=== PATIENT | female | born 1950 | race Two or more races ===

== ENCOUNTER 2024-12-21 07:04 | Inpatient (IN) | payer MEDICAID, SELFPAY ==
[2024-12-21] VITALS (17 sets, daily range): BP systolic 55–157; BP diastolic 39–97; PULSE 31–100; RESP 12–21; TEMP 36–37.3; O2SAT 82–100; BMI 27.1
--- NOTE | 2024-12-21 07:26 | EKG_ITS ---
[facility] Test Date: 2024-12-21 Pat Name: BELÉN MAGANA Department: Room: - Gender: Female Pathology Specialist: : 1950 Requested By: Ileana Boland Order Number: [id number] Reading MD: Ileana Boland Measurements Intervals [place] Rate: 72 P: 34 WI: 171 QRS: -29 QRSD: 80 T: 80 QT: 387 QTc: 424 Interpretive Statements SINUS RHYTHM LOW QRS VOLTAGE IN PRECORDIAL LEADS [QRS DEFLECTION < 1.0 mV IN CHEST LEADS] POSSIBLE ANTERIOR MYOCARDIAL INFARCTION , OF INDETERMINATE AGE [30 ms Q WAVE IN V3/V4, OR R < 0.2 mV IN V4] Compared to ECG 12/25/2023 08:21:03 Low QRS voltage now present Left-axis deviation no longer present Myocardial infarct finding still present /store/S0/[id number]/ecg/[id number].pdf
[2024-12-21 07:49] LABS: Lactate (Lactic Acid) 1.4 mMol/L (0.4-2.0)
[2024-12-21 07:53] LABS: Basophils # (Auto) 0.0 Thou/mm3 (0.0-0.2); Basophils % (Auto) 0 % (0-2.5); Eosinophils # (Auto) 0.1 Thou/mm3 (0.0-0.5); Eosinophils % (Auto) 1 % (0-10); Hematocrit 28.1 % (36.0-46.0); Hemoglobin 8.9 g/dL (12.0-16.0); Immature Granulocytes Auto 0.03 Thou/mm3 (0.00-0.00); Lymphocytes # (Auto) 1.9 Thou/mm3 (1.0-4.8); Lymphocytes % (Auto) 26 % (10-50); Mean Corpuscular HGB Conc 31.7 g/dl (31.0-37.0); Mean Corpuscular Hemoglobin 30.1 pg (25.0-35.0); Mean Corpuscular Volume 95 fL (80-100); Monocytes # (Auto) 0.5 Thou/mm3 (0.0-0.8); Monocytes % (Auto) 7 % (0-12); Neutrophils # (Auto) 5.0 Thou/mm3 (1.8-7.7); Neutrophils % (Auto) 66 % (37-80); Nucleated Red Blood Cell # 0.00 Thou/mm3 (0.00-0.00); Nucleated Red Blood Cell % 0 /100 WBC (0); Platelet Count 185 Thou/mm3 (140-440); RDW Standard Deviation 54.4 fL (36.4-46.3); Red Blood Count 2.96 Miln/mm3 (4.00-5.20); White Blood Count 7.5 Thou/mm3 (3.6-11.0)
[2024-12-21] MEDS: ONDANSETRON INJ 2 MG/ML INJ 2 ML 4 MG IVP (07:54)
[2024-12-21] MEDS: SODIUM CHLORIDE 0.9% 1000 ML 1,000 ML 999 ML IV (07:54)
--- NOTE | 2024-12-21 08:02 | PD.EDNV ---
Nausea/Vomit./Diarrhea-RME/HPI General Chief complaint: Nausea/Vomiting/Diarrhea Stated complaint: VOMITING Time Seen by Provider: 12/21/24 07:26 Arrival date/time: 12/21/24 07:04 RME / HPI RME / HPI Narrative: DR. DUDLEY MAIN ED EVALUATION: 74-year-old female with past medical history of hypertension, hyperlipidemia, diabetes mellitus type 2, CKD stage IIIb, anemia, history of gout, history of acute non-STEMI type I status post stent placement performed on June 26, [address] Franklin involving LAD was brought in by EMS from home for evaluation of vomiting blood. Patient had one episode of coffee-ground emesis at home and then experienced another episode of red blood here at the ED. She denies abdominal pain, recent injury, trauma, or other symptoms. No prior similar episodes reported. The patient appears weak and pale but remains responsive. No chest pain, shortness of breath, or dizziness reported. Related Data Home Medications ?Medication ?Instructions ?Recorded ?Confirmed allopurinol 300 mg tablet 300 mg PO QDAY 05/24/21 12/23/23 sitagliptin phosphate 100 mg 100 mg PO QDAY 05/24/21 12/23/23 tablet (Januvia) vitamin B complex-vitamin C-folic 1 tab PO QDAY 05/24/21 12/23/23 acid 0.8 mg tablet (Cari-Marycruz) aspirin 81 mg tablet,delayed 81 mg PO QDAY 06/21/23 12/23/23 release Held on 12/29/23. Instructions: Resume on 01/11/24. Please follow up with Radiology Physician Assistant, Dr. Freire in order to resume Aspirin. sodium bicarbonate 325 mg tablet 325 mg PO DAILY 06/21/23 12/23/23 irbesartan 150 mg tablet 150 mg PO QDAY 06/23/23 06/23/23 atorvastatin 80 mg tablet 80 mg PO DAILY 12/23/23 12/23/23 clopidogrel 75 mg tablet (Plavix) 75 mg PO DAILY 12/23/23 12/23/23 Held on 12/29/23. Instructions: Resume on 01/11/24. Please follow up with Radiology Physician Assistant, Dr. Freire in order to resume Clopidogrel (Plavix). dapagliflozin propanediol 5 mg 5 mg PO DAILY 12/23/23 12/23/23 tablet (Farxiga) ferrous sulfate 325 mg (65 mg 325 mg PO DAILY 12/23/23 12/23/23 iron) tablet hydrochlorothiazide 25 mg tablet 25 mg PO DAILY 12/23/23 12/23/23 insulin glargine 100 unit/mL (3 10 unit subcut QAM 12/23/23 12/23/23 mL) subcutaneous pen (Lantus Solostar U-100 Insulin) meclizine 12.5 mg tablet 12.5 mg PO BID PRN Dizziness 12/23/23 12/23/23 metoprolol tartrate 25 mg tablet 25 mg PO QDAY 12/23/23 12/23/23 pentoxifylline 400 mg 400 mg PO QDAY 12/23/23 12/23/23 tablet,extended release warfarin 5 mg tablet 5 mg PO DAILY 12/23/23 12/23/23 Previous Rx's ?Medication ?Instructions ?Recorded docusate sodium 100 mg capsule 100 mg PO BID #40 caps 06/22/23 (Colace) hydrocodone 5 mg-acetaminophen 325 1 tab PO Q6H PRN pain (scale score 06/22/23 mg tablet 7-10) #20 tabs warfarin 4 mg tablet 4 mg PO QDAY #30 tabs 12/29/23 Allergies Allergy/AdvReac Type Severity Reaction Status Date / Time No Known Allergies Allergy Verified 12/22/23 21:38 Review of Systems Review of Systems Systems Reviewed: All systems reviewed, normal except as documented Past Medical History Past Medical History CARDIAC: Positive Cardiac Disorders, Hypercholesterolemia and Hypertension GASTROINTESTINAL: Positive Gastrointestinal Disorders and Gall Bladder Disease GENITOURINARY: Positive Genitourinary Disorders and Renal Disease ( KIDNEYS ARE DAMAGED ) REPRODUCTIVE: Positive Previous Pregnancies MUSCULOSKELETAL: Positive Musculoskeletal Disorders and Arthritis ENT: Positive Cataracts and Blind ENDOCRINE: Positive Endocrine Disorders and Diabetes Mellitus Type 2 HEMATOLOGIC: Positive Blood Disorders and Anemia PSYCHO/SOCIAL: Positive Anxiety OTHER HISTORY: Positive Hospitalization and Chicken Pox Social History SMOKING STATUS: Never smoker SUBSTANCE USE: does not use ALCOHOL: Never ED Exam Narrative Physical exam: GENERAL APPEARANCE: Pale, diaphoretic, and appears weak; alert but fatigued VITALS: All vitals were reviewed and the pulse ox is 99% on 1 L/min via a nasal cannula. HEENT: Normocephalic, atraumatic; pupils equal, round, reactive to light; EOMI; mucous membranes pink, moist; oropharynx clear NECK: Supple LUNGS: CTABL; no wheezes, no rales, no rhonchi HEART: Regular rate, regular rhythm; normal S1, S2; no murmurs ABDOMEN: non distended; normal BS; soft, no tenderness, no guarding, no rebound; no masses, no organomegaly, no hernia BACK: no CVA tenderness EXTREMITIES: atraumatic; no edema NEUROLOGIC: awake; alert and oriented x4; cranial nerves II-XII grossly intact; no focal sensory or motor deficits PSYCHIATRIC: appropriate mood and affect SKIN: pale, diaphoretic; no rashes Course Quality Measures none Orders Category Date Time Status CT Screening NOW Care 12/21/24 08:10 Active EKG (ED ONLY) *Do not use* NOW Care 12/21/24 07:26 Completed Insert IV NOW Care 12/21/24 07:37 Active Transfuse,blood/blood products NOW Care 12/21/24 08:08 Active Consult to Gastroenterology Stat Cons 12/21/24 10:[address] abdomen pelvis wo con Stat Exams 12/21/24 09:[address] head/brain wo con Stat Exams 12/21/24 08:10 Completed EKG (ED Only) Stat Exams 12/21/24 07:26 Draft ABG [Arterial Blood Gas] Stat Lab 12/21/24 08:59 Completed BNP [B-Type Natriuretic Peptide] Stat Lab 12/21/24 07:36 Completed CBC Stat Lab 12/21/24 07:36 Completed Comprehensive Metabolic Panel Stat Lab 12/21/24 07:36 Completed Lactate (Lactic Acid) Stat Lab 12/21/24 07:36 Completed Lipase Stat Lab 12/21/24 07:36 Completed Magnesium Stat Lab 12/21/24 07:36 Completed Partial Thromboplastin Time Stat Lab 12/21/24 07:36 Completed Prothrombin Time with INR Stat Lab 12/21/24 07:36 Completed Red Blood Cells Stat Lab 12/21/24 07:36 Completed Troponin I Stat Lab 12/21/24 07:36 Completed Type and Screen Stat Lab 12/21/24 07:36 Completed UA, C/S IF [Urinalysis, C/S if Indicated] Stat Lab 12/21/24 10:02 Completed Calcium Gluc/Ns 1000MG Ivpb [Calcium Gluc/Ns 1000mg Med 12/21/24 09:15 Discontinued Ivpb] 1,000 mg in 50 ml IV X1 Ondansetron Inj [Zofran Inj] Med 12/21/24 07:26 Discontinued 4 mg IVP X1 ONE Pantoprazole Inj [Protonix Inj] Med 12/21/24 07:26 Discontinued 80 mg IVP X1 ONE Pantoprazole/Ns 80Mg IV Premix [Protonix/NS 80mg IV Med 12/21/24 08:08 Active Premix] 80 mg in 100 ml IV X1 Sodium Chloride 0.9% 1000 ml [Ns] 1,000 ml Med 12/21/24 07:27 Discontinued IV 999 mls/hr Vital Signs Vital signs: Vital Signs Temperature 98.4 F 12/21/24 07:13 Pulse Rate 76 12/21/24 07:13 Respiratory Rate 16 12/21/24 07:13 Blood Pressure 141/68 H 12/21/24 07:13 Pulse Oximetry (%) 94 L 12/21/24 07:13 Oxygen Delivery Method Room Air 12/21/24 07:13 Nausea/Vomiting/Diarrhea MDM Narrative MDM Narrative:: IKianna am scribing for and in the presence of Dr. Dudley. Patient data External records reviewed:: [facility] previous records and EMS form Clinical information provided by:: patient and EMS Social determinants that could affect healthcare access:: none Patient has the following chronic illnesses:: Hypertension, hyperlipidemia, diabetes mellitus type 2, CKD stage IIIb, anemia, history of gout, history of acute non-STEMI type I status post stent placement performed on June 26, [address] Franklin involving LAD. How is presenting disease/condition affected by chronic disease/condition?: exacerbated by Evaluation data The following diagnostics were reviewed and interpreted by me:: lab results, radiology exam(s) and EKG tracing(s) (My interpretation: EKG performed at 0800 hours, sinus rhythm, rate 72, Q wave in V1, lead 3, and AVF, artifact, slight ST depression in AVL) Lab and/or radiology exams considered but not ordered:: none Interpretation Summary: Procedure(s): CT abdomen pelvis wo con Accession Number(s): [id number] cc: Puneet Anguiano MD; Suresh Borden MD; Ileana Dudley MD~ Examination: CT abdomen and pelvis without contrast. Coronal 3-D reconstructions. Sagittal 2-D reconstructions. Date and time of exam: December 21, 2024921 hours INDICATIONS: Vomiting blood this morning with weakness CTDI: vol (mGy): 8.57 DLP: (mGycm): 473 Technique: Axial images of the abdomen have been obtained, 3 mm slice thickness Intravenous contrast material has not been administered. Low dose protocols were performed. One or more of the following dose reduction techniques were used; automated exposure control, adjustment of the mA and/or KV according to patient size, use of iterative reconstruction technique. Findings: Mild to moderate enlargement cardiac contour with atelectasis in the lower lung zones 15 mm pericardial effusion Small retrocardiac gastric hernia Gastric mucosa appears thickened on this noncontrast study Absent gallbladder Small liver calcifications Small splenic calcifications, mild splenomegaly No pancreatic mass Atrophic kidneys, no hydronephrosis Abundant stool throughout the colon Normal appendix No bowel obstruction Heavy vascular calcification Atrophic uterus Urinary bladder intact Severe osteopenia Moderate disc narrowing L5-S1 IMPRESSION: Suspicious for gastritis. Mild splenomegaly No bowel obstruction No CT findings of appendicitis or colitis on this noncontrast study Dictated By: Suresh Borden MD Procedure(s): CT head/brain wo con Accession Number(s): [id number] cc: Puneet Anguiano MD; Suresh Borden MD; Ileana Dudley MD~ Examination: CT brain head without contrast. 2-D sagittal coronal reconstructions Date and time of exam: December 21, [id number] hours INDICATIONS: Onset headache vomiting blood weakness beginning this morning CTDI: vol (mGy): 43 DLP: (mGycm): 958 Technique: Multiple CT axial sections of the brain have been obtained, 5 mm slice thickness. Contrast has not been administered. 2-D sagittal, coronal reconstructions have been obtained Low dose protocols were performed. One or more of the following dose reduction techniques were used; automated exposure control, adjustment of the mA and/or KV according to patient size, use of iterative reconstruction technique. Findings: No significant ventricular enlargement. Intra-axial or extra-axial hemorrhage density is not seen. No mass effect or midline shift Basal cisterns are not remarkable. Fourth ventricle is midline. Cranial vault intact. Impression: Negative for acute hemorrhage, mass effect or midline shift Advise clinical correlation and follow-up accordingly Dictated By: Suresh Borden MD Medications / Prescriptions Medications / Prescriptions considered but not ordered:: none Medication administrations:: Medication Administration History Acetaminophen (Acetaminophen 325 Mg Tablet) 650 mg PO Q6H PRN PRN Reason: Fever >101.5 Stop: 01/20/25 12:09 Acetaminophen (Acetaminophen 325 Mg Tablet) 650 mg PO Q6H PRN PRN Reason: PAIN SCALE 1-3 (mild Stop: 01/20/25 12:09 Hydrocodone Bitart/Acetaminophen (Hydrocodone/Apap 5/325 Tablet) 1 tab PO Q4HR PRN PRN Reason: PAIN SCALE 4-6 (Moderate Stop: 12/26/24 12:09 Dextrose (Dextrose 50%-Water Inj 50 Ml Syringe) 25 ml IV Q15MIN PRN PRN Reason: BG 50-70 responsive npo pt Stop: 01/20/25 12:36 Dextrose (Dextrose 50%-Water Inj 50 Ml Syringe) 50 ml IV Q15MIN PRN PRN Reason: BG <50 OR BG <70 & pt unresponsive Stop: 01/20/25 12:36 Glucagon (Glucagon Inj 1 Mg Vial) 1 mg IM Q15MIN PRN PRN Reason: BG <70, and no IV access Pantoprazole Sodium (Protonix/Ns 80mg Iv Premix) 80 mg in 100 mls @ 10 mls/hr IV X1 ONE Stop: 12/21/24 18:07 Last Infusion: 12/21/24 09:37 Dose: 10 mls/hr Documented By: Admin: 12/21/24 08:30 Dose: 10 mls/hr Documented By: CORNELIUS Insulin Human Lispro (Insulin Lispro (Admelog) 1 Unit/0.01 Ml Unit) 0 unit SC [facility]; Protocol Stop: 01/20/25 16:59 Ondansetron HCl (Ondansetron Inj 2 Mg/Ml Inj 2 Ml) 4 mg IVP Q6H PRN; Protocol PRN Reason: NAUSEA OR VOMITING Stop: 01/20/25 12:09 Pantoprazole Sodium (Pantoprazole Inj 40 Mg Vial) 40 mg IVP Q12HR MAYCO Stop: 01/21/25 08:59 Discontinued Medications Sodium Chloride (Ns) 1,000 mls @ 999 mls/hr IV .Q1H1M ONE Stop: 12/21/24 08:27 Last Infusion: 12/21/24 08:55 Dose: Infused Documented By: Admin: 12/21/24 07:54 Dose: 999 mls/hr Documented By: ADRIÁN Calcium Gluconate/Sodium Chloride (Calcium Gluc/Ns 1000mg Ivpb) 1,000 mg in 50 mls @ 50 mls/hr IV X1 ONE Stop: 12/21/24 10:14 Last Infusion: 12/21/24 10:37 Dose: Infused Documented By: Admin: 12/21/24 09:37 Dose: 50 mls/hr Documented By: CORNELIUS Ondansetron HCl (Ondansetron Inj 2 Mg/Ml Inj 2 Ml) 4 mg IVP X1 ONE; Protocol Stop: 12/21/24 07:27 Last Admin: 12/21/24 07:54 Dose: 4 mg Documented By: ADRIÁN Pantoprazole Sodium (Pantoprazole Inj 40 Mg Vial) 80 mg IVP X1 ONE Stop: 12/21/24 07:27 Last Admin: 12/21/24 07:53 Dose: 80 mg Documented By: ADRIÁN see above Consultations Consultation(s) initiated? (list below): Yes Consultation #1 (Physician, Specialty, Details): Discussed test HPI, PMHx, lab, radiology results and/or management with hospitalist. Will admit for further evaluation and management. Accepts patient for admission. Time: 12:00 Diagnosis Nausea Differential Diagnosis: other (Upper GI bleed, peptic ulcer disease, and gastritis with hemorrhage.) Most likely diagnosis given after review of the tests above:: Upper GI bleed Admission Indicated Admission indicated?: indicated Admission Request Was there a request for admission?: Yes Admission Attestation Admission request attestation: Discussed case with [] from Hospitalist service regarding admission. Discussed patients ED course, exam findings, labs, and radiology results. The Hospitalist [agrees,declines] to accept the patient for admission. Disposition Plan Disposition Plan: Admit Discharge Plan Plan Patient Disposition: Admit Acute Care w/in Hospital Problem List Clinical Impression: Upper gastrointestinal bleeding
--- NOTE | 2024-12-21 08:10 | XR_ITS ---
Examination: CT brain head without contrast. 2-D sagittal coronal reconstructions Date and time of exam: December 21, 2024, 0939 hours INDICATIONS: Onset headache vomiting blood weakness beginning this morning CTDI: vol (mGy): 43 DLP: (mGycm): 958 Technique: Multiple CT axial sections of the brain have been obtained, 5 mm slice thickness. Contrast has not been administered. 2-D sagittal, coronal reconstructions have been obtained Low dose protocols were performed. One or more of the following dose reduction techniques were used; automated exposure control, adjustment of the mA and/or KV according to patient size, use of iterative reconstruction technique. Findings: No significant ventricular enlargement. Intra-axial or extra-axial hemorrhage density is not seen. No mass effect or midline shift Basal cisterns are not remarkable. Fourth ventricle is midline. Cranial vault intact. Impression: Negative for acute hemorrhage, mass effect or midline shift Advise clinical correlation and follow-up accordingly
[2024-12-21] MEDS: PANTOPRAZOLE/NS 80MG IV PREMIX 80 MG/100 ML BAG 10 MG IV (08:30)
[2024-12-21 08:38] LABS: B-Type Natriuretic Peptide 442 pg/mL (0-100)
[2024-12-21 08:46] LABS: INR 1.1 (0.9-1.3); Partial Thromboplastin Time 30.8 Seconds (22.0-36.0); Prothrombin Time 11.8 Seconds (9.0-12.2)
[2024-12-21 08:51] LABS: Alanine Aminotransferase 24 U/L (10-49); Albumin, Serum 3.9 gm/dL (3.4-4.8); Albumin/Globulin Ratio 2.4 (1.2-2.2); Alkaline Phosphatase 81 U/L (46-116); Anion Gap 13 (7-16); Aspartate Amino Transferase 48 U/L (0-34); Bilirubin,Total 0.4 mg/dL (0.3-1.2); Calcium 8.6 mg/dL (8.3-10.6); Calcium (Corrected) 8.7 mg/dL (8.5-10.1); Carbon Dioxide 21.8 mMol/L (20.0-31.0); Chloride 109 mMol/L (98-107); Creatinine (Component) 3.1 mg/dL (0.6-1.3); Estimated Creatinine Clearance 14.7 mL/min (>60); Globulin 1.6 gm/dL (2.3-3.5); Glucose 200 mg/dL (74-106); Lipase 96 U/L (12-53); Magnesium 1.8 mg/dL (1.6-2.6); Potassium 5.2 mMol/L (3.4-5.1); Sodium 144 mMol/L (136-145); Total Protein 5.5 gm/dL (5.7-8.2); Troponin I < 0.020 ng/mL (0.0-0.045); eGFR 15 See Note
[2024-12-21 08:59] LABS: BUN/Creatinine Ratio 34 Ratio (12-20); Osmolality,Calculated 326 (275-295)
[2024-12-21 09:03] LABS: Base Excess -7 (-3-3); HCO3 19 mEq/L (20-26); Inspired Oxygen, FIO2 21 %; O2 Saturation 97 % (91-98); PCO2 38 mmHg (32.0-48.0); PO2 93 mmHg (83-108); pH, Arterial 7.30 (7.35-7.45)
[2024-12-21 09:04] LABS: Allen Test Performed/OK; Puncture Site Right Brachial
[2024-12-21 09:09] LABS: Blood Urea Nitrogen 106 mg/dL (9-23)
--- NOTE | 2024-12-21 09:09 | XR_ITS ---
Examination: CT abdomen and pelvis without contrast. Coronal 3-D reconstructions. Sagittal 2-D reconstructions. Date and time of exam: December 21, 2024, 0922 hours INDICATIONS: Vomiting blood this morning with weakness CTDI: vol (mGy): 8.57 DLP: (mGycm): 473 Technique: Axial images of the abdomen have been obtained, 3 mm slice thickness Intravenous contrast material has not been administered. Low dose protocols were performed. One or more of the following dose reduction techniques were used; automated exposure control, adjustment of the mA and/or KV according to patient size, use of iterative reconstruction technique. Findings: Mild to moderate enlargement cardiac contour with atelectasis in the lower lung zones 15 mm pericardial effusion Small retrocardiac gastric hernia Gastric mucosa appears thickened on this noncontrast study Absent gallbladder Small liver calcifications Small splenic calcifications, mild splenomegaly No pancreatic mass Atrophic kidneys, no hydronephrosis Abundant stool throughout the colon Normal appendix No bowel obstruction Heavy vascular calcification Atrophic uterus Urinary bladder intact Severe osteopenia Moderate disc narrowing L5-S1 IMPRESSION: Suspicious for gastritis. Mild splenomegaly No bowel obstruction No CT findings of appendicitis or colitis on this noncontrast study
[2024-12-21] MEDS: CALCIUM GLUC/NS 1000MG IVPB 1,000 MG/50 ML BAG 50 MG IV (09:37)
[2024-12-21 10:06] LABS: Collection Type, Urine Clean Catch
[2024-12-21 11:04] LABS: Bilirubin,Urine Negative (Negative); Blood,Urine Trace (Negative); Clarity,Urine Clear (Clear/Hazy); Color,Urine Colorless (Lt Yel-Yel); Culture Indicated,Urine Not Indicated; Glucose, Urine 4+ (Negative); Ketones,Urine Negative (Negative); Leukocyte Esterase,Urine Negative (Negative); Nitrite,Urine Negative (Negative); PH,Urine 5.5 (5.0-7.0); Protein,Urine 1+ (Neg - Trace); RBC,Urine 1 /hpf (0-3); Specific Gravity,Urine 1.013 (1.001-1.035); Squamous Epithelial Cell,Urine 4 /hpf (0-5); Urobilinogen,Urine Negative mg/dL (0.0-1.0); WBC,Urine < 1 /hpf (0-5)
--- NOTE | 2024-12-21 12:40 | ESHP_ITS ---
<Statement entered by Tobias Stallworth MD - 12/21/24 16:13> I have reviewed the note and agree with the resident's assessment & plan with exceptions as below. I have personally reviewed labs, imaging, home meds/prior records, examined the patient, formulated and discussed management plan with my attending 74-year-old female with past medical history of DM2, hypertension, hyperlipidemia, CAD s/p stents, and GERD was admitted to the hospital on 12/21/2024 due to GI bleed upper versus lower. Patient stated that she had bloody emesis today in the morning and was bright red blood. Otherwise denies having any blood in the stools. Denies taking any high doses of ibuprofen or any other NSAIDs. States she takes aspirin once a day only. Has never had any episodes like this in the past. Patient has no history of cirrhosis. Hemoglobin was 8.9 and baseline is around 9-10. ED gave 1 PRBC and 1 L of IV fluids. GI was consulted. Otherwise no other complaint this time. In summary: #GI bleed upper versus lower #Hematemesis #Acute blood loss anemia ?GI consulted ? Protonix twice daily ? 1 PRBC ready in case of needing to be transfused ? H&H every 6 hours #DANIAL on CKD kidney function. Patient's creatinine was 3.1 and her baseline is around 2 BUN 106 likely secondary to bleeding Patient was retaining some urine therefore bladder scans were ordered Will repeat renal function panel to monitor Tobias Stallworth PGY2 Disclaimer: Even though this this note was dictated by speech recognition and even though it was carefully revised there may still be minor errors in kraft digester operator due to voice recognition software. Documentation for date of: 12/21/24 HPI History of Present Illness Chief complaint: Hematemesis History of present illness: History of present illness: Patient is a 74 yo F with PMH of DM, HTN, HLD, CAD with stent, gout presenting to the ED on 12/21/24 for hematemesis. Patient had an episode of vomiting dark red blood this morning; she has never had anything like this before. Patient has no history of alcohol use disorder or cirrhosis. Patient reports no abdominal pain, and previous colonoscopy was normal. ED course: Patient was seen in the ED; CT A/P suspicious for gastritis, splenomegaly, no appenditicts or colitis. CT head negative for acute hemorrhage, mass effect or midline shift. EKG shows sinus rhythm. Labs notable for Hgb 8.9 (baseline around 9-10), ABG shows ph 7.30, pCO2 38, pO2 93, HCO3 19, base excess -7. Potassium was 5.2 on admission, calcium gluconate given; creatinine is 3.1, previous baseline is around 2.0. BNP is 442, no history of CHF noted. GI consulted stat for hematemesis; zofran 4, protonix 80 x2, and 1L NS given. Patient had additional episode of hematemesis in ED, and was admitted for hematemesis and management of GI bleed. PMH: DM, HTN, HLD, CAD, gout PSH: cholecystectomy Allergies: NKDA Social history: No smoking, EtOH, or drug history Review of Systems Review of Systems Narrative Review of Systems: General: Denies fevers or chills HEENT: Denies congestion or sore throat Heart: Denies chest pain or palpitations Lungs: Denies shortness of breath or cough Abdomen: Denies diarrhea, constipation, BRBPR, melena; endorses bloody vomiting Genitourinary: Denies frequency, urgency, dysuria, hematuria Musculoskeletal: Denies joint pain, denies muscular pain Neurology: Denies numbness, tingling ROS otherwise negative except what is mentioned above. Exam Vital Signs Temp Pulse Resp BP Pulse Ox O2 Del Method O2 Flow Rate 98.4 F 69 21 H 139/63 H 100 Nasal Cannula 2 12/21/24 11:29 12/21/24 11:29 12/21/24 11:29 12/21/24 11:29 12/21/24 11:29 12/21/24 11:22 12/21/24 11:29 Narrative Exam General: A/O x3, no acute distress, well-nourished, well-developed Eyes: PERRL, EOMI. Anicteric, vision grossly intact. Ears: No ear pain, no ear discharge, Hearing grossly intact. Nose: No nasal discharge. Mouth/Throat: Moist mucous membranes, no redness, no lesions. Neck: Neck supple, non-tender, no cervical lymphadenopathy. Lungs: Clear ANGELICA to auscultation and percussion, No accessory muscle use. Cardio: Normal S1/S2, regular rhythm, no murmurs, no JVD or carotid bruits. Abdomen: Soft, non-tender, no palpable masses, peristalsis present, no guarding or rebound. Extremities: Symmetrical, no significant deformities, no peripheral edema , non-tender, peripheral pulses present. Skin: No rashes, no lesions, warm to touch. Neuro: No focal neurological deficits. Psych: Cooperative, appropriate mood and effect. Results: Labs 12/22/24 05:50 12/22/24 05:50 Labs: Short CBC 12/21/24 Range/Units 07:36 WBC 7.5 (3.6-11.0) Thou/mm3 Hgb 8.9 L (12.0-16.0) g/dL Hct 28.1 L (36.0-46.0) % Plt Count 185 (140-440) Thou/mm3 BMP 12/21/24 07:36 Sodium 144 Potassium 5.2 H Chloride 109 H Carbon Dioxide 21.8 BUN 106 H* Creatinine 3.1 H Glucose 200 H Calcium 8.6 Cardiac Enzymes 12/21/24 Range/Units 07:36 Troponin I < 0.020 (0.0-0.045) ng/mL Liver Function 12/21/24 Range/Units 07:36 Total Bilirubin 0.4 (0.3-1.2) mg/dL AST 48 H (0-34) U/L ALT 24 (10-49) U/L Alkaline Phosphatase 81 (46-116) U/L Albumin 3.9 (3.4-4.8) gm/dL Urine 12/21/24 Range/Units 10:02 Urine Color Colorless A (Lt Yel-Yel) Urine Clarity Clear (Clear/Hazy) Urine pH 5.5 (5.0-7.0) Ur Specific [place] 1.013 (1.001-1.035) Urine Protein 1+ A (Neg - Trace) Urine Glucose (UA) 4+ A (Negative) ABG Interpretation ABG results: 12/21/24 08:59 ABG pH 7.30 L ABG pCO2 38 ABG pO2 93 ABG HCO3 19 L ABG O2 Saturation 97 ABG Base Excess -7 L Quality Measures Quality Measures none Advance care planning discussed with:: other Medications Home Medications and Allergies Home Medications ?Medication ?Instructions ?Recorded ?Confirmed ?Type allopurinol 300 mg tablet 300 mg PO QDAY 05/24/2111/27 History sitagliptin phosphate 100 mg 100 mg PO QDAY 05/24/21 1 History tablet (Januvia) vitamin B complex-vitamin C-folic 1 tab PO QDAY 12/23/23 History acid 0.8 mg tablet (Cari-Marycruz) aspirin 81 mg tablet,delayed 81 mg PO QDAY 06/21/23 History release Held on 12/29/23. Instructions: Resume on 01/11/24. Please follow up with Assistant Teacher, Dr. Freire in order to resume Aspirin. sodium bicarbonate 325 mg tablet 325 mg PO DAILY 06/2012/23/23 History irbesartan 150 mg tablet 150 mg PO QDAY 06/23/2305/28 History atorvastatin 80 mg tablet 80 mg PO DAILY 12/23/2311/27 History clopidogrel 75 mg tablet (Plavix) 75 mg PO DAILY 12/2212/23/23 History Held on 12/29/23. Instructions: Resume on 01/11/24. Please follow up with Assistant Teacher, Dr. Freire in order to resume Clopidogrel (Plavix). dapagliflozin propanediol 5 mg 5 mg PO DAILY 12/23/23 12/23/23 History tablet (Farxiga) ferrous sulfate 325 mg (65 mg 325 mg PO DAILY 12/23/23 12/23/23 History iron) tablet hydrochlorothiazide 25 mg tablet 25 mg PO DAILY 12/23/23 History insulin glargine 100 unit/mL (3 10 unit subcut QAM 12/23/23 History mL) subcutaneous pen (Lantus Solostar U-100 Insulin) meclizine 12.5 mg tablet 12.5 mg PO BID PRN Dizziness 12/23/23 12/23/23 History metoprolol tartrate 25 mg tablet 25 mg PO QDAY 4 12/23/23 History pentoxifylline 400 mg 400 mg PO QDAY 12/23/2311/27 History tablet,extended release warfarin 5 mg tablet 5 mg PO DAILY 12/23/2312/22 History Allergies Allergy/AdvReac Type Severity Reaction Status Date / Time No Known Allergies Allergy Verified 10/26/24 21:38 Visit Medications Acetaminophen (Acetaminophen 325 Mg Tablet) 650 mg PO Q6H PRN PRN Reason: Fever >101.5 Stop: 01/20/25 12:09 Acetaminophen (Acetaminophen 325 Mg Tablet) 650 mg PO Q6H PRN PRN Reason: PAIN SCALE 1-3 (mild Stop: 01/20/25 12:09 Hydrocodone Bitart/Acetaminophen (Hydrocodone/Apap 5/325 Tablet) 1 tab PO Q4HR PRN PRN Reason: PAIN SCALE 4-6 (Moderate Stop: 12/26/24 12:09 Dextrose (Dextrose 50%-Water Inj 50 Ml Syringe) 25 ml IV Q15MIN PRN PRN Reason: BG 50-70 responsive npo pt Stop: 01/20/25 12:36 Dextrose (Dextrose 50%-Water Inj 50 Ml Syringe) 50 ml IV Q15MIN PRN PRN Reason: BG <50 OR BG <70 & pt unresponsive Stop: 01/20/25 12:36 Glucagon (Glucagon Inj 1 Mg Vial) 1 mg IM Q15MIN PRN PRN Reason: BG <70, and no IV access Pantoprazole Sodium (Protonix/Ns 80mg Iv Premix) 80 mg in 100 mls @ 10 mls/hr IV X1 ONE Stop: 12/21/24 18:07 Last Infusion: 12/21/24 09:37 Dose: 10 mls/hr Insulin Human Lispro (Insulin Lispro (Admelog) 1 Unit/0.01 Ml Unit) 0 unit SC AC MAYCO; Protocol Stop: 01/20/25 16:59 Ondansetron HCl (Ondansetron Inj 2 Mg/Ml Inj 2 Ml) 4 mg IVP Q6H PRN; Protocol PRN Reason: NAUSEA OR VOMITING Stop: 01/20/25 12:09 Pantoprazole Sodium (Pantoprazole Inj 40 Mg Vial) 40 mg IVP Q12HR MAYCO Stop: 01/21/25 08:59 Discontinued Medications Sodium Chloride (Ns) 1,000 mls @ 999 mls/hr IV .Q1H1M ONE Stop: 12/21/24 08:27 Last Infusion: 12/21/24 08:55 Dose: Infused Calcium Gluconate/Sodium Chloride (Calcium Gluc/Ns 1000mg Ivpb) 1,000 mg in 50 mls @ 50 mls/hr IV X1 ONE Stop: 12/21/24 10:14 Last Infusion: 12/21/24 10:37 Dose: Infused Ondansetron HCl (Ondansetron Inj 2 Mg/Ml Inj 2 Ml) 4 mg IVP X1 ONE; Protocol Stop: 12/21/24 07:27 Last Admin: 12/21/24 07:54 Dose: 4 mg Pantoprazole Sodium (Pantoprazole Inj 40 Mg Vial) 80 mg IVP X1 ONE Stop: 12/21/24 07:27 Last Admin: 12/21/24 07:53 Dose: 80 mg Assessment & Plan Plan Patient is a 74 yo F with PMH of DM, HTN, HLD, CAD with stent, gout presenting to the ED on 12/21/24 for hematemesis; patient admitted on 12/21/24 for management of GI bleed. #GI bleed (upper versus lower) #Hematemesis #Acute blood loss anemia Patient states that she had a hematemesis episode this a.m., has never had this before, had another hematemesis episode in the ED; patient has no history of alcohol use disorder or cirrhosis. Hgb on admission is 8.9; previous baseline is 9-10. CT head negative for mass, hemorrhage, or midline shift; CT abdomen pelvis suspicious for gastritis, splenomegaly, no appenditicts or colitis. Plan: Type and screen for potential blood transfusion dependent on hemoglobin GI consulted, appreciate recs Protonix 40 twice daily Patient placed n.p.o. Patient received 1 unit pRBCs and 1 L NS, getting postransfusion Hgb/Hct #DANIAL on CKDstageIIIb-IV Patient baseline around 1.7-2.0; creatinine on admission is 3.1 Plan: patient received 1L NS and 1 unit pRBCs in ED Renal panel scheduled for 12/01/24 PM #Hyperkalemia patient had K of 5.2 on admission; received calcium gluconate in ED. Plan: Renal function panel PM #HTN #DM #HLD #CAD #Gout Patient takes atorvastatin, allopurinol, Farxiga, metoprolol, Jardiance at home. Plan: Insulin sliding scale Hold all other home medications Disposition: Telemetry DVT prophylaxis: Holding due to GI bleed GI prophylaxis: Protonix Diet: NPO Lines: PIV CODE STATUS: Full code This case was discussed with my attending physician, Dr. Mccoy, and senior resident, Dr. Guy. Stephan Victoria MD-PhD, PGY1 Attending Provider Attestation/Addendum I, Laura Mccoy DO, attest that I was physically present for the pinedo portions of the service and evaluated the patient with the resident and I reviewed and discussed the case with the resident and agree with the resident's findings and plans of care as documented above Patient is a 74-year-old female with past medical history type 2 diabetes, hypertension, hyperlipidemia, CAD status post stent, GI bleed, LV thrombus, ischemic colitis, CKD stage III, gout who was brought to the ED after one episode of bloody emesis. Patient states that it occured this AM, and had a second episode here in the ED. Per ED physician, emesis appeared dark red. She denies history of hematemesis, NSAID use, anticoagulant use. She reports shortness of breath and lightheadedness, but denies chest pain, fevers, chills or diarrhea. Patient reports that she takes aspirin at home. Hemoglobin on presentation was 8.9. She is noted to have potassium of 5.2, BUN of 106 and creatinine at 3.1. Elevated BUN/creatinine ratio likely secondary to GI bleed. GI was consulted from ED. Patient currently reports mild epigastric discomfort. Due to DANIAL on CKD, nephrology was consulted. She received 1 unit of PRBCs in the ED and 1 L of normal saline. Will monitor fluid status closely given history of CHF. Will repeat renal panel due to hyperkalemia. She received calcium gluconate due to hyperkalemia. She has been started on PPI drip. Will admit to telemetry and will continue to follow hemoglobin. Will follow-up repeat renal panel in a few hours. Will keep n.p.o. at this time.
--- NOTE | 2024-12-21 14:07 | PC.CC ---
Patient is a 74 year-old female who presents to the hospital for hematemesis. TRAFFIC ADMINISTRATORJanny made [id number] contact with patient introduced self, role, and reason for visit. Patient was awake but did not respond to this screenplay writer at bedside was patient's daughter, aRkel House . TRAFFIC ADMINISTRATOR, discussed limits of confidentiality. Patient's daughter who is at bedside completed initial assessment with this screenplay writer and is listed as her Next of Kin. Patient lives with her daughter Rakel. Per daughter, patient ambulates independently, but on occasion uses a cane. Patient is able to complete her own ALDs with no assistance. Patient does not use oxygen at home and is not a dialysis patient. She receives primary care with Puneet Anguiano and uses [facility] for her prescription medication. Upon discharge she plans to return back home. child and family services specialist to follow up with any discharge needs. ?
[2024-12-21 14:29] LABS: Hematocrit 26.6 % (36.0-46.0)
[2024-12-21 14:31] LABS: Hemoglobin 8.5 g/dL (12.0-16.0)
--- NOTE | 2024-12-21 16:03 | PC.NURSE ---
PT TAKEN TO FLOOR BY FELLOW BRIGID PATEL
[2024-12-21 16:19] LABS: Albumin, Serum 3.6 gm/dL (3.4-4.8); Anion Gap 12 (7-16); BUN/Creatinine Ratio 37 Ratio (12-20); Blood Urea Nitrogen 108 mg/dL (9-23); Calcium 8.4 mg/dL (8.3-10.6); Calcium (Corrected) 8.7 mg/dL (8.5-10.1); Carbon Dioxide 18.8 mMol/L (20.0-31.0); Chloride 114 mMol/L (98-107); Creatinine (Component) 2.9 mg/dL (0.6-1.3); Estimated Creatinine Clearance 15.7 mL/min (>60); Glucose 219 mg/dL (74-106); Osmolality,Calculated 329 (275-295); Phosphorous 3.7 mg/dL (2.4-5.1); Potassium 6.0 mMol/L (3.4-5.1); Sodium 145 mMol/L (136-145); eGFR 16 See Note
[2024-12-21] MEDS: ALBUTEROL RT 2.5 MG/0.5 ML NEBU 10 MG INH (17:23)
--- NOTE | 2024-12-21 17:26 | EKG_ITS ---
[facility] Test Date: 2024-12-21 Pat Name: BELÉN MAGANA [facility] Sequencing Machine Operator: ANDRÉS : 1950 Requested By: Tobias Stallworth Order Number: [id number] Reading MD: Tobias Stallworth Measurements Intervals Pitcher Rate: 92 P: 40 ND: 175 QRS: -15 QRSD: 80 T: 85 QT: 339 QTc: 420 Interpretive Statements SINUS RHYTHM LOW QRS VOLTAGE IN EXTREMITY LEADS PATTERN CONSISTENT WITH PULMONARY DISEASE Compared to ECG 12/21/2024 08:00:40 Myocardial infarct finding no longer present /store/S0/[id number].pdf
[2024-12-21] MEDS: SOD POLYSTYRENE SULFON SUSP 15 GM/60 ML BTL 30 GM PO (17:40)
--- NOTE | 2024-12-21 18:04 | PC.NURSE ---
Per Dr. Galeano, hold IV insulin and dextrose until patient is transferred to second floor (TELE).
--- NOTE | 2024-12-21 18:10 | XR_ITS ---
EXAMINATION: AP chest single view TECHNIQUE: AP portable upright chest single view Date and time: December 21, 2024, 1822 hours INDICATIONS: Shortness of breath today. FINDINGS: Mild enlargement cardiac contour Minor atelectasis left base No pneumonia or pulmonary edema. Moderate osteopenia IMPRESSION: No pneumonia or pulmonary edema
--- NOTE | 2024-12-21 18:14 | EKG_ITS ---
[facility] Test Date: 2024-12-21 Pat Name: BELÉN MAGANA [facility] Landscape Architect: ANDRÉS : 1950 Requested By: Mitchell Braun Order Number: [id number] Reading MD: Mitchell Braun Measurements Intervals [place] Rate: 85 P: 44 [place]: 175 QRS: -5 QRSD: 82 T: 76 QT: 357 QTc: 425 Interpretive Statements SINUS RHYTHM LOW QRS VOLTAGE IN EXTREMITY LEADS Compared to ECG 12/21/2024 17:49:02 No significant changes /store/S0/[id number].pdf
[2024-12-21 18:16] LABS: Lactate (Lactic Acid) 2.8 mMol/L (0.4-2.0)
--- NOTE | 2024-12-21 18:17 | EVENTNT_ITS ---
Documentation for date of: 12/21/24 Event Note Event Note: 12/21/2024, [facility] [employer] was called at time:18:10 for bed#377 for syncope. Patient seen and assessed on commode and had an episode of syncope, hematemesis noted in cannula, some melena in stool. She was hypotensive 55/39 on presentation and improved with 1L bolus to 139/72. Initially oxygen saturation was 89%. Physical exam was benign, good upper airway sounds, diaphoretic but perfusing well AOx2 did not know the month. Work up CBC, CXR, EKG, lactic acid, ABG. Tx/Intervention 1 LR bolus, 1 unit pRBC given. Decision was made to transfer to tele. Attending made aware and will continue to monitor patient as well.
[2024-12-21 18:24] LABS: Basophils # (Auto) 0.0 Thou/mm3 (0.0-0.2); Basophils % (Auto) 0 % (0-2.5); Eosinophils # (Auto) 0.0 Thou/mm3 (0.0-0.5); Eosinophils % (Auto) 0 % (0-10); Hematocrit 25.6 % (36.0-46.0); Immature Granulocytes Auto 0.03 Thou/mm3 (0.00-0.00); Lymphocytes # (Auto) 2.1 Thou/mm3 (1.0-4.8); Lymphocytes % (Auto) 23 % (10-50); Mean Corpuscular HGB Conc 32.0 g/dl (31.0-37.0); Mean Corpuscular Hemoglobin 29.7 pg (25.0-35.0); Mean Corpuscular Volume 93 fL (80-100); Monocytes # (Auto) 0.5 Thou/mm3 (0.0-0.8); Monocytes % (Auto) 5 % (0-12); Neutrophils # (Auto) 6.6 Thou/mm3 (1.8-7.7); Neutrophils % (Auto) 72 % (37-80); Nucleated Red Blood Cell # 0.00 Thou/mm3 (0.00-0.00); Nucleated Red Blood Cell % 0 /100 WBC (0); Platelet Count 153 Thou/mm3 (140-440); RDW Standard Deviation 52.4 fL (36.4-46.3); Red Blood Count 2.76 Miln/mm3 (4.00-5.20); White Blood Count 9.3 Thou/mm3 (3.6-11.0)
[2024-12-21 18:29] LABS: Hemoglobin 8.2 g/dL (12.0-16.0)
[2024-12-21] MEDS: RINGERS LACTATED 1000 ML 1,000 ML 999 ML IV (18:37)
[2024-12-21 18:50] LABS: Albumin, Serum 3.5 gm/dL (3.4-4.8); BUN/Creatinine Ratio 30 Ratio (12-20); Blood Urea Nitrogen 87 mg/dL (9-23); Calcium 9.0 mg/dL (8.3-10.6); Calcium (Corrected) 9.4 mg/dL (8.5-10.1); Chloride 115 mMol/L (98-107); Creatinine (Component) 2.9 mg/dL (0.6-1.3); Estimated Creatinine Clearance 15.7 mL/min (>60); Glucose 258 mg/dL (74-106); Osmolality,Calculated 322 (275-295); Phosphorous 3.9 mg/dL (2.4-5.1); Potassium 6.0 mMol/L (3.4-5.1); Sodium 144 mMol/L (136-145); eGFR 16 See Note
[2024-12-21 18:54] LABS: Base Excess -12 (-3-3); HCO3 15 mEq/L (20-26); Inspired O2, VO2 Liters 15 L/min; O2 Saturation 100 % (91-98); PCO2 36 mmHg (32.0-48.0); PO2 278 mmHg (83-108); pH, Arterial 7.23 (7.35-7.45)
[2024-12-21 18:55] LABS: Allen Test Performed/OK; Puncture Site Left Radial
[2024-12-21 18:56] LABS: Anion Gap 14 (7-16); Carbon Dioxide 15.1 mMol/L (20.0-31.0)
[2024-12-21] MEDS: SODIUM BICARB INJ 8.4% 1 mEq/ML 50 ML VIAL 50 MEQ IV (20:34)
[2024-12-21] MEDS: INSULIN HUM REGULAR 1 UNIT/0.01 ML (PER UNIT) 5 UNIT IV (20:38)
[2024-12-21] MEDS: DEXTROSE 50%-WATER INJ 50 ML SYRINGE IVP (20:55)
--- NOTE | 2024-12-21 20:58 | PD.IMCONS ---
HPI Data of Consult Requesting Physician: Laura Mccoy DO Primary Care Provider: Puneet Anguiano MD Consult Narrative Reason for consult: Hematemesis History of present illness: 74 years of female came to the emergency room brought in by the family with episodes of hematemesis Presenting hemoglobin hematocrit 8.9 and 28.1 which has gone down to 8.2 and 25.6 and a platelet count of 153,000 BUN/creatinine 108/3.1 on admission currently down to 87 and 2.9 Patient does have a history of essential hypertension hyperlipidemia diabetes mellitus type 2 myocardial infarction in the past requiring PTCA to the LAD cc:: cc: Laura Mccoy DO Review of Systems Review of Systems Systems Reviewed: All systems reviewed, normal except as documented Past Medical History Surgical History OTHER SURGICAL HX: As in the history of present illness Meds Home Medications and Allergies Home Medications ?Medication ?Instructions ?Recorded ?Confirmed ?Type allopurinol 300 mg tablet 300 mg PO QDAY 05/24/21 12/23/23 History sitagliptin phosphate 100 mg 100 mg PO QDAY 05/24/21 12/23/23 History tablet (Januvia) vitamin B complex-vitamin C-folic 1 tab PO QDAY 05/24/21 12/23/23 History acid 0.8 mg tablet (Cari-Marycruz) aspirin 81 mg tablet,delayed 81 mg PO QDAY 06/21/23 12/23/23 History release Held on 12/29/23. Instructions: Resume on 01/11/24. Please follow up with Meter Installer, Dr. Freire in order to resume Aspirin. sodium bicarbonate 325 mg tablet 325 mg PO DAILY 06/21/23 12/23/23 History irbesartan 150 mg tablet 150 mg PO QDAY 06/23/23 06/23/23 History atorvastatin 80 mg tablet 80 mg PO DAILY 12/23/23 12/23/23 History clopidogrel 75 mg tablet (Plavix) 75 mg PO DAILY 12/23/23 12/23/23 History Held on 12/29/23. Instructions: Resume on 01/11/24. Please follow up with Meter Installer, Dr. Freire in order to resume Clopidogrel (Plavix). dapagliflozin propanediol 5 mg 5 mg PO DAILY 12/23/23 12/23/23 History tablet (Farxiga) ferrous sulfate 325 mg (65 mg 325 mg PO DAILY 12/23/23 12/23/23 History iron) tablet hydrochlorothiazide 25 mg tablet 25 mg PO DAILY 12/23/23 12/23/23 History insulin glargine 100 unit/mL (3 10 unit subcut QAM 12/23/23 12/23/23 History mL) subcutaneous pen (Lantus Solostar U-100 Insulin) meclizine 12.5 mg tablet 12.5 mg PO BID PRN Dizziness 12/23/23 12/23/23 History metoprolol tartrate 25 mg tablet 25 mg PO QDAY 12/23/23 12/23/23 History pentoxifylline 400 mg 400 mg PO QDAY 12/23/23 12/23/23 History tablet,extended release warfarin 5 mg tablet 5 mg PO DAILY 12/23/23 12/23/23 History Allergies Allergy/AdvReac Type Severity Reaction Status Date / Time No Known Allergies Allergy Verified 12/22/23 21:38 Exam Vital Signs Temp Pulse Resp BP Pulse Ox O2 Del Method O2 Flow Rate 98.5 F 95 20 145/97 H 95 Oxy Mask 15 12/21/24 20:00 12/21/24 20:00 12/21/24 20:00 12/21/24 20:00 12/21/24 20:00 12/21/24 20:00 12/21/24 20:00 Constitutional Comments: Chronically ill-appearing. Routine Respiratory Exam Comments: Normal to auscultation. Routine Abdominal Exam Comments: Soft nontender Results Labs 12/21/24 17:57 12/21/24 17:57 Labs: Short CBC 12/21/24 12/21/24 12/21/24 Range/Units 07:36 14:20 17:57 WBC 7.5 9.3 (3.6-11.0) Thou/mm3 Hgb 8.9 L 8.5 L 8.2 L (12.0-16.0) g/dL Hct 28.1 L 26.6 L 25.6 L (36.0-46.0) % Plt Count 185 153 D (140-440) Thou/mm3 BMP 12/21/24 12/21/24 12/21/24 07:36 15:22 17:57 Sodium 144 145 144 Potassium 5.2 H 6.0 H D 6.0 H Chloride 109 H 114 H 115 H Carbon Dioxide 21.8 18.8 L 15.1 L BUN 106 H* 108 H* 87 H Creatinine 3.1 H 2.9 H 2.9 H Glucose 200 H 219 H 258 H Calcium 8.6 8.4 9.0 Cardiac Enzymes 12/21/24 Range/Units 07:36 Troponin I < 0.020 (0.0-0.045) ng/mL Liver Function 12/21/24 12/21/24 12/21/24 Range/Units 07:36 15:22 17:57 Total Bilirubin 0.4 (0.3-1.2) mg/dL AST 48 H (0-34) U/L ALT 24 (10-49) U/L Alkaline Phosphatase 81 (46-116) U/L Albumin 3.9 3.6 3.5 (3.4-4.8) gm/dL Urine 12/21/24 Range/Units 10:02 Urine Color Colorless A (Lt Yel-Yel) Urine Clarity Clear (Clear/Hazy) Urine pH 5.5 (5.0-7.0) Ur Specific [place] 1.013 (1.001-1.035) Urine Protein 1+ A (Neg - Trace) Urine Glucose (UA) 4+ A (Negative) ABG Interpretation ABG results: 12/21/24 12/21/24 08:59 18:46 ABG pH 7.30 L 7.23 L ABG pCO2 38 36 ABG pO2 93 278 H D ABG HCO3 19 L 15 L ABG O2 Saturation 97 100 H ABG Base Excess -7 L -12 L Assessment and Plan Additional Assessment & Plan Additional Plan: # Hematemesis etiology uncertain plan Patient's daughters were in the room Ukrainian interpretation was done by the nursing staff and consent obtained for fiberoptic esophagogastroduodenoscopy with possible biopsy possible therapeutic intervention scheduled for tomorrow Continue IV Protonix Serial CBC Will follow the patient Other medical problems include Coronary artery disease status post myocardial infarction status post PTCA to the LAD Essential hypertension Hyperlipidemia Diabetes mellitus type 2 DANIAL renal function improving Thank you very much for the opportunity to participate in the care of this patient
[2024-12-21 21:13] LABS: Reflex Lactate? Y
[2024-12-21 21:56] LABS: Lactic Acid, 3 HR 2.1 mMol/L (0.4-2.0)
[2024-12-21 21:59] LABS: Base Excess, Venous -6 (-3-3); O2 Saturation, Venous 98 % (96-97); PCO2, Venous 34 mmHg (36-56); PO2, Venous 97 mmHg (15-58); pH, Venous 7.35 (7.33-7.66)
[2024-12-21 22:14] LABS: Albumin, Serum 3.4 gm/dL (3.4-4.8); Anion Gap 14 (7-16); BUN/Creatinine Ratio 38 Ratio (12-20); Blood Urea Nitrogen 114 mg/dL (9-23); Calcium 8.4 mg/dL (8.3-10.6); Calcium (Corrected) 8.9 mg/dL (8.5-10.1); Carbon Dioxide 20.8 mMol/L (20.0-31.0); Chloride 114 mMol/L (98-107); Creatinine (Component) 3.0 mg/dL (0.6-1.3); Estimated Creatinine Clearance 15.1 mL/min (>60); Glucose 333 mg/dL (74-106); Osmolality,Calculated 345 (275-295); Phosphorous 3.3 mg/dL (2.4-5.1); Potassium 4.5 mMol/L (3.4-5.1); Sodium 149 mMol/L (136-145); eGFR 16 See Note
[2024-12-21] MEDS: Sodium Bicarb 8.4% 50ml Vial* 88.23 MEQ in DEXTROSE 5%-WATER 500 ML 80 MEQ IV (22:21)
[2024-12-21] MEDS: INSULIN LISPRO (AdmeLOG) 1 UNIT/0.01 ML UNIT SC (23:02)
[2024-12-21 23:10] LABS: Hematocrit 21.8 % (36.0-46.0)
[2024-12-21 23:22] LABS: Hemoglobin 7.1 g/dL (12.0-16.0)
[2024-12-22] VITALS (23 sets, daily range): BP systolic 128–182; BP diastolic 69–99; PULSE 80–103; RESP 16–24; TEMP 36.1–37.3; O2SAT 2–100
[2024-12-22 03:10] LABS: Anion Gap 14 (7-16); BUN/Creatinine Ratio 37 Ratio (12-20); Blood Urea Nitrogen 108 mg/dL (9-23); Calcium 8.6 mg/dL (8.3-10.6); Carbon Dioxide 23.9 mMol/L (20.0-31.0); Chloride 113 mMol/L (98-107); Creatinine (Component) 2.9 mg/dL (0.6-1.3); Estimated Creatinine Clearance 15.7 mL/min (>60); Glucose 310 mg/dL (74-106); Osmolality,Calculated 345 (275-295); Potassium 5.1 mMol/L (3.4-5.1); Sodium 151 mMol/L (136-145); eGFR 16 See Note
[2024-12-22 03:38] LABS: Lactate (Lactic Acid) 1.8 mMol/L (0.4-2.0)
[2024-12-22 06:05] LABS: Basophils # (Auto) 0.0 Thou/mm3 (0.0-0.2); Basophils % (Auto) 0 % (0-2.5); Eosinophils # (Auto) 0.0 Thou/mm3 (0.0-0.5); Eosinophils % (Auto) 0 % (0-10); Hematocrit 29.9 % (36.0-46.0); Hemoglobin 10.1 g/dL (12.0-16.0); Immature Granulocytes Auto 0.06 Thou/mm3 (0.00-0.00); Lymphocytes # (Auto) 1.3 Thou/mm3 (1.0-4.8); Lymphocytes % (Auto) 13 % (10-50); Mean Corpuscular HGB Conc 33.8 g/dl (31.0-37.0); Mean Corpuscular Hemoglobin 28.8 pg (25.0-35.0); Mean Corpuscular Volume 85 fL (80-100); Monocytes # (Auto) 1.0 Thou/mm3 (0.0-0.8); Monocytes % (Auto) 10 % (0-12); Neutrophils # (Auto) 7.5 Thou/mm3 (1.8-7.7); Neutrophils % (Auto) 76 % (37-80); Nucleated Red Blood Cell # 0.00 Thou/mm3 (0.00-0.00); Nucleated Red Blood Cell % 0 /100 WBC (0); Platelet Count 119 Thou/mm3 (140-440); RDW Standard Deviation 49.1 fL (36.4-46.3); Red Blood Count 3.51 Miln/mm3 (4.00-5.20); White Blood Count 9.8 Thou/mm3 (3.6-11.0)
[2024-12-22 06:45] LABS: Alanine Aminotransferase 23 U/L (10-49); Albumin, Serum 3.5 gm/dL (3.4-4.8); Albumin/Globulin Ratio 2.5 (1.2-2.2); Alkaline Phosphatase 55 U/L (46-116); Anion Gap 14 (7-16); Aspartate Amino Transferase 39 U/L (0-34); BUN/Creatinine Ratio 38 Ratio (12-20); Bilirubin,Total 0.7 mg/dL (0.3-1.2); Blood Urea Nitrogen 105 mg/dL (9-23); Calcium 8.7 mg/dL (8.3-10.6); Calcium (Corrected) 9.1 mg/dL (8.5-10.1); Carbon Dioxide 24.2 mMol/L (20.0-31.0); Chloride 112 mMol/L (98-107); Creatinine (Component) 2.8 mg/dL (0.6-1.3); Estimated Creatinine Clearance 16.2 mL/min (>60); Globulin 1.4 gm/dL (2.3-3.5); Glucose 310 mg/dL (74-106); Magnesium 1.5 mg/dL (1.6-2.6); Osmolality,Calculated 343 (275-295); Phosphorous 3.2 mg/dL (2.4-5.1); Potassium 4.7 mMol/L (3.4-5.1); Sodium 150 mMol/L (136-145); Total Protein 4.9 gm/dL (5.7-8.2); eGFR 17 See Note
[2024-12-22 07:24] LABS: Base Excess 0 (-3-3); HCO3 25 mEq/L (20-26); Inspired Oxygen, FIO2 21 %; O2 Saturation 94 % (91-98); PCO2 37 mmHg (32.0-48.0); PO2 63 mmHg (83-108); pH, Arterial 7.43 (7.35-7.45)
[2024-12-22 07:25] LABS: Inspired O2, VO2 Liters 2 L/min
[2024-12-22 07:26] LABS: Allen Test Performed/OK; Puncture Site Right Radial
[2024-12-22] MEDS: SODIUM CHLORIDE 0.45 % 1,000 ML 80 ML IV (09:44)
[2024-12-22] MEDS: Magnesium Sulfate 4 GM Ivpb 4 GM/50 ML BAG IV (09:45)
[2024-12-22] MEDS: INSULIN DEGLUDEC 5 UNIT/0.05 ML (PER 5 UNITS) 10 UNIT SC (10:02)
--- NOTE | 2024-12-22 10:48 | ESPR_ITS ---
<Statement entered by Tobias Stallworth MD - 12/22/24 18:08> I have reviewed the note and agree with the resident's assessment & plan with exceptions as below. I have personally reviewed labs, imaging, home meds/prior records, examined the patient, formulated and discussed management plan with my attending Patient was seen and at bedside this morning. Yesterday patient got a rapid response called due to syncopal episode likely vasovagal as he was in the restroom. She got 2 PRBCs transfused and hemoglobin today is stable at 10. Patient will undergo EGD most likely today. Start patient on degludec 10 as her sugars have been on the higher end. Patient was taken off sodium bicarb drip as her acidosis is resolved throughout the night. Patient looked a lot better today and she did not have any new complaints today. Otherwise no other overnight events or further complaints. Toibas Stallworth PGY2 Disclaimer: Even though this this note was dictated by speech recognition and even though it was carefully revised there may still be minor errors in steel loader due to voice recognition software. Documentation for date of: 12/22/24 Subjective Subjective Interval history: Patient seen and examined at bedside; at 18:10 on 12/21/24, patient had syncopal episode with hematemesis and melena. BP was 55/39 on presentation, post 1L bolus BP was 139/72. O2 sat initially 89%. patient also given 1 unit pRBCs and upgraded to telemetry. Patient subsequently recieved an additional 2 units pRBCs. Patient back at baseline today and npo for EGD. Patient also had hypernatremia to 150 on today's labs; 0.45% NS given. Exam Vital Signs Temp Pulse Resp BP Pulse Ox O2 Del Method O2 Flow Rate 97.1 F 99 20 153/96 H 94 L Humidified Nasal Cannula 2 12/22/24 08:00 12/22/24 08:00 12/22/24 08:00 12/22/24 08:00 12/22/24 08:00 12/22/24 08:00 12/22/24 08:00 Narrative Exam General: A/O x2, no acute distress, well-nourished, well-developed Eyes: PERRL, EOMI. Anicteric, vision grossly intact. Ears: No ear pain, no ear discharge, Hearing grossly intact. Nose: No nasal discharge. Mouth/Throat: Moist mucous membranes, no redness, no lesions. Neck: Neck supple, non-tender, no cervical lymphadenopathy. Lungs: Clear ANGELICA to auscultation and percussion, No accessory muscle use. Cardio: Normal S1/S2, regular rhythm, no murmurs, no JVD or carotid bruits. Abdomen: Soft, non-tender, no palpable masses, peristalsis present, no guarding or rebound. Extremities: Symmetrical, no significant deformities, no peripheral edema , non-tender, peripheral pulses present. Skin: No rashes, no lesions, warm to touch. Neuro: No focal neurological deficits. Psych: Cooperative, appropriate mood and effect. Objective Labs 12/23/24 04:48 12/23/24 13:38 Labs: Laboratory Results - last 24 hr 12/21/24 12/21/24 12/21/24 07:36 10:02 14:20 WBC RBC Hgb 8.5 L Hct 26.6 L MCV MCH MCHC RDW Std Deviation Plt Count Neut % (Auto) Lymph % (Auto) Sharkey % (Auto) Eos % (Auto) Baso % (Auto) Neut # (Auto) Lymph # (Auto) Sharkey # (Auto) Eos # (Auto) Baso # (Auto) Immature Gran # (Auto) Absolute Nucleated RBC Immature Gran % Nucleated RBC % Puncture Site ABG pH ABG pCO2 ABG pO2 ABG HCO3 ABG O2 Saturation ABG Base Excess VBG pH VBG pCO2 VBG pO2 VBG O2 Sat (Shira) VBG Base Excess Oxygen Liter Flow FiO2 Sodium Potassium Chloride Carbon Dioxide Anion Gap BUN Creatinine Estim Creat Clear Calc eGFR BUN/Creatinine Ratio Glucose Calculated Osmolality Lactic Acid Calcium Corrected Calcium Phosphorus Magnesium Total Bilirubin AST ALT Alkaline Phosphatase Total Protein Albumin Globulin Albumin/Globulin Ratio Ur Collection Type Clean Catch Urine Color Colorless A Urine Clarity Clear Urine pH 5.5 Ur Specific [place] 1.013 Urine Protein 1+ A Urine Glucose (UA) 4+ A Urine Ketones Negative Urine Blood Trace Urine Nitrite Negative Urine Bilirubin Negative Urine Urobilinogen (Auto) Negative Ur Leukocyte Esterase Negative Urine RBC 1 Urine WBC < 1 Ur Squamous Epith Cells 4 Urine Bacteria None Ur Culture Indicated? Not Indicated Blood Type O Positive Antibody Screen NEGATIVE Crossmatch See Detail Blood Bank Wristband ID Yes 12/21/24 12/21/24 12/21/24 15:22 17:57 18:46 WBC 9.3 RBC 2.76 L Hgb 8.2 L Hct 25.6 L MCV 93 MCH 29.7 MCHC 32.0 RDW Std Deviation 52.4 H Plt Count 153 D Neut % (Auto) 72 Lymph % (Auto) 23 Sharkey % (Auto) 5 Eos % (Auto) 0 Baso % (Auto) 0 Neut # (Auto) 6.6 Lymph # (Auto) 2.1 Sharkey # (Auto) 0.5 Eos # (Auto) 0.0 Baso # (Auto) 0.0 Immature Gran # (Auto) 0.03 H Absolute Nucleated RBC 0.00 Immature Gran % 0 Nucleated RBC % 0 Puncture Site Left Radial ABG pH 7.23 L ABG pCO2 36 ABG pO2 278 H D ABG HCO3 15 L ABG O2 Saturation 100 H ABG Base Excess -12 L VBG pH VBG pCO2 VBG pO2 VBG O2 Sat (Shira) VBG Base Excess Oxygen Liter Flow 15 FiO2 Sodium 145 144 Potassium 6.0 H D 6.0 H Chloride 114 H 115 H Carbon Dioxide 18.8 L 15.1 L Anion Gap 12 14 BUN 108 H* 87 H Creatinine 2.9 H 2.9 H Estim Creat Clear Calc 15.7 L 15.7 L eGFR 16 L 16 L BUN/Creatinine Ratio 37 H 30 H Glucose 219 H 258 H Calculated Osmolality 329 H 322 H Lactic Acid 2.8 H Calcium 8.4 9.0 Corrected Calcium 8.7 9.4 Phosphorus 3.7 3.9 Magnesium Total Bilirubin AST ALT Alkaline Phosphatase Total Protein Albumin 3.6 3.5 Globulin Albumin/Globulin Ratio Ur Collection Type Urine Color Urine Clarity Urine pH Ur Specific [place] Urine Protein Urine Glucose (UA) Urine Ketones Urine Blood Urine Nitrite Urine Bilirubin Urine Urobilinogen (Auto) Ur Leukocyte Esterase Urine RBC Urine WBC Ur Squamous Epith Cells Urine Bacteria Ur Culture Indicated? Blood Type Antibody Screen Crossmatch Blood Bank Wristband ID 12/21/24 12/21/24 12/21/24 21:36 21:36 21:36 WBC RBC Hgb Hct MCV MCH MCHC RDW Std Deviation Plt Count Neut % (Auto) Lymph % (Auto) Sharkey % (Auto) Eos % (Auto) Baso % (Auto) Neut # (Auto) Lymph # (Auto) Sharkey # (Auto) Eos # (Auto) Baso # (Auto) Immature Gran # (Auto) Absolute Nucleated RBC Immature Gran % Nucleated RBC % Puncture Site ABG pH ABG pCO2 ABG pO2 ABG HCO3 ABG O2 Saturation ABG Base Excess VBG pH 7.35 VBG pCO2 34 L VBG pO2 97 H VBG O2 Sat (Shira) 98 H VBG Base Excess -6 L Oxygen Liter Flow FiO2 Sodium Cancelled 149 H Potassium Cancelled 4.5 D Chloride Cancelled Carbon Dioxide Anion Gap BUN Creatinine Estim Creat Clear Calc eGFR BUN/Creatinine Ratio Glucose Calculated Osmolality Lactic Acid Calcium Corrected Calcium Phosphorus Magnesium Total Bilirubin AST ALT Alkaline Phosphatase Total Protein Albumin Globulin Albumin/Globulin Ratio Ur Collection Type Urine Color Urine Clarity Urine pH Ur Specific [place] Urine Protein Urine Glucose (UA) Urine Ketones Urine Blood Urine Nitrite Urine Bilirubin Urine Urobilinogen (Auto) Ur Leukocyte Esterase Urine RBC Urine WBC Ur Squamous Epith Cells Urine Bacteria Ur Culture Indicated? Blood Type Antibody Screen Cross[employer]wik[employer] Umami Wristband ID 12/21/24 12/21/24 12/21/24 21:36 21:36 21:36 WBC RBC Hgb Hct MCV MCH MCHC RDW Std Deviation Plt Count Neut % (Auto) Lymph % (Auto) Sharkey % (Auto) Eos % (Auto) Baso % (Auto) Neut # (Auto) Lymph # (Auto) Sharkey # (Auto) Eos # (Auto) Baso # (Auto) Immature Gran # (Auto) Absolute Nucleated RBC Immature Gran % Nucleated RBC % Puncture Site ABG pH ABG pCO2 ABG pO2 ABG HCO3 ABG O2 Saturation ABG Base Excess VBG pH VBG pCO2 VBG pO2 VBG O2 Sat (Shira) VBG Base Excess Oxygen Liter Flow FiO2 Sodium Potassium Chloride 114 H Carbon Dioxide Cancelled 20.8 Anion Gap Cancelled 14 BUN Cancelled Creatinine Estim Creat Clear Calc eGFR BUN/Creatinine Ratio Glucose Calculated Osmolality Lactic Acid Calcium Corrected Calcium Phosphorus Magnesium Total Bilirubin AST ALT Alkaline Phosphatase Total Protein Albumin Globulin Albumin/Globulin Ratio Ur Collection Type Urine Color Urine Clarity Urine pH Ur Specific [place] Urine Protein Urine Glucose (UA) Urine Ketones Urine Blood Urine Nitrite Urine Bilirubin Urine Urobilinogen (Auto) Ur Leukocyte Esterase Urine RBC Urine WBC Ur Squamous Epith Cells Urine Bacteria Ur Culture Indicated? Blood Type Antibody Screen Crossmatch Blood Bank Wristband ID 12/21/24 12/21/24 12/21/24 21:36 21:36 21:36 WBC RBC Hgb Hct MCV MCH MCHC RDW Std Deviation Plt Count Neut % (Auto) Lymph % (Auto) Sharkey % (Auto) Eos % (Auto) Baso % (Auto) Neut # (Auto) Lymph # (Auto) Sharkey # (Auto) Eos # (Auto) Baso # (Auto) Immature Gran # (Auto) Absolute Nucleated RBC Immature Gran % Nucleated RBC % Puncture Site ABG pH ABG pCO2 ABG pO2 ABG HCO3 ABG O2 Saturation ABG Base Excess VBG pH VBG pCO2 VBG pO2 VBG O2 Sat (Shira) VBG Base Excess Oxygen Liter Flow FiO2 Sodium Potassium Chloride Carbon Dioxide Anion Gap BUN 114 H* Creatinine Cancelled 3.0 H Estim Creat Clear Calc Cancelled 15.1 L eGFR Cancelled BUN/Creatinine Ratio Glucose Calculated Osmolality Lactic Acid Calcium Corrected Calcium Phosphorus Magnesium Total Bilirubin AST ALT Alkaline Phosphatase Total Protein Albumin Globulin Albumin/Globulin Ratio Ur Collection Type Urine Color Urine Clarity Urine pH Ur Specific [place] Urine Protein Urine Glucose (UA) Urine Ketones Urine Blood Urine Nitrite Urine Bilirubin Urine Urobilinogen (Auto) Ur Leukocyte Esterase Urine RBC Urine WBC Ur Squamous Epith Cells Urine Bacteria Ur Culture Indicated? Blood Type Antibody Screen Crossmatch Blood Bank Wristband ID 12/21/24 12/21/24 12/21/24 21:36 21:36 21:36 WBC RBC Hgb Hct MCV MCH MCHC RDW Std Deviation Plt Count Neut % (Auto) Lymph % (Auto) Sharkey % (Auto) Eos % (Auto) Baso % (Auto) Neut # (Auto) Lymph # (Auto) Sharkey # (Auto) Eos # (Auto) Baso # (Auto) Immature Gran # (Auto) Absolute Nucleated RBC Immature Gran % Nucleated RBC % Puncture Site ABG pH ABG pCO2 ABG pO2 ABG HCO3 ABG O2 Saturation ABG Base Excess VBG pH VBG pCO2 VBG pO2 VBG O2 Sat (Shira) VBG Base Excess Oxygen Liter Flow FiO2 Sodium Potassium Chloride Carbon Dioxide Anion Gap BUN Creatinine Estim Creat Clear Calc eGFR 16 L BUN/Creatinine Ratio Cancelled 38 H Glucose Cancelled 333 H D Calculated Osmolality Cancelled Lactic Acid Calcium Corrected Calcium Phosphorus Magnesium Total Bilirubin AST ALT Alkaline Phosphatase Total Protein Albumin Globulin Albumin/Globulin Ratio Ur Collection Type Urine Color Urine Clarity Urine pH Ur Specific [place] Urine Protein Urine Glucose (UA) Urine Ketones Urine Blood Urine Nitrite Urine Bilirubin Urine Urobilinogen (Auto) Ur Leukocyte Esterase Urine RBC Urine WBC Ur Squamous Epith Cells Urine Bacteria Ur Culture Indicated? Blood Type Antibody Screen Crossmatch Blood Bank Wristband ID 12/21/24 12/21/24 12/21/24 21:36 21:36 21:36 WBC RBC Hgb Hct MCV MCH MCHC RDW Std Deviation Plt Count Neut % (Auto) Lymph % (Auto) Sharkey % (Auto) Eos % (Auto) Baso % (Auto) Neut # (Auto) Lymph # (Auto) Sharkey # (Auto) Eos # (Auto) Baso # (Auto) Immature Gran # (Auto) Absolute Nucleated RBC Immature Gran % Nucleated RBC % Puncture Site ABG pH ABG pCO2 ABG pO2 ABG HCO3 ABG O2 Saturation ABG Base Excess VBG pH VBG pCO2 VBG pO2 VBG O2 Sat (Shira) VBG Base Excess Oxygen Liter Flow FiO2 Sodium Potassium Chloride Carbon Dioxide Anion Gap BUN Creatinine Estim Creat Clear Calc eGFR BUN/Creatinine Ratio Glucose Calculated Osmolality 345 H Lactic Acid 2.1 H Calcium Cancelled 8.4 Corrected Calcium Cancelled 8.9 Phosphorus Cancelled Magnesium Total Bilirubin AST ALT Alkaline Phosphatase Total Protein Albumin Globulin Albumin/Globulin Ratio Ur Collection Type Urine Color Urine Clarity Urine pH Ur Specific [place] Urine Protein Urine Glucose (UA) Urine Ketones Urine Blood Urine Nitrite Urine Bilirubin Urine Urobilinogen (Auto) Ur Leukocyte Esterase Urine RBC Urine WBC Ur Squamous Epith Cells Urine Bacteria Ur Culture Indicated? Blood Type Antibody Screen [place] Blood Bank Wristband ID 12/21/24 12/21/24 12/21/24 21:36 21:36 22:50 WBC RBC Hgb 7.1 L Hct 21.8 L* MCV MCH MCHC RDW Std Deviation Plt Count Neut % (Auto) Lymph % (Auto) Sharkey % (Auto) Eos % (Auto) Baso % (Auto) Neut # (Auto) Lymph # (Auto) Sharkey # (Auto) Eos # (Auto) Baso # (Auto) Immature Gran # (Auto) Absolute Nucleated RBC Immature Gran % Nucleated RBC % Puncture Site ABG pH ABG pCO2 ABG pO2 ABG HCO3 ABG O2 Saturation ABG Base Excess VBG pH VBG pCO2 VBG pO2 VBG O2 Sat (Shira) VBG Base Excess Oxygen Liter Flow FiO2 Sodium Potassium Chloride Carbon Dioxide Anion Gap BUN Creatinine Estim Creat Clear Calc eGFR BUN/Creatinine Ratio Glucose Calculated Osmolality Lactic Acid Calcium Corrected Calcium Phosphorus 3.3 Magnesium Total Bilirubin AST ALT Alkaline Phosphatase Total Protein Albumin Cancelled 3.4 Globulin Albumin/Globulin Ratio Ur Collection Type Urine Color Urine Clarity Urine pH Ur Specific [place] Urine Protein Urine Glucose (UA) Urine Ketones Urine Blood Urine Nitrite Urine Bilirubin Urine Urobilinogen (Auto) Ur Leukocyte Esterase Urine RBC Urine WBC Ur Squamous Epith Cells Urine Bacteria Ur Culture Indicated? Blood Type Antibody Screen [place] Blood Bank Wristband ID 12/22/24 12/22/24 12/22/24 02:15 03:23 05:50 WBC 9.8 RBC 3.51 L Hgb 10.1 L D Hct 29.9 L MCV 85 MCH 28.8 MCHC 33.8 RDW Std Deviation 49.1 H Plt Count 119 L D Neut % (Auto) 76 Lymph % (Auto) 13 Sharkey % (Auto) 10 Eos % (Auto) 0 Baso % (Auto) 0 Neut # (Auto) 7.5 Lymph # (Auto) 1.3 Sharkey # (Auto) 1.0 H Eos # (Auto) 0.0 Baso # (Auto) 0.0 Immature Gran # (Auto) 0.06 H Absolute Nucleated RBC 0.00 Immature Gran % 1 H Nucleated RBC % 0 Puncture Site ABG pH ABG pCO2 ABG pO2 ABG HCO3 ABG O2 Saturation ABG Base Excess VBG pH VBG pCO2 VBG pO2 VBG O2 Sat (Shira) VBG Base Excess Oxygen Liter Flow FiO2 Sodium 151 H 150 H Potassium 5.1 D 4.7 Chloride 113 H 112 H Carbon Dioxide 23.9 24.2 Anion Gap 14 14 BUN 108 H* 105 H* Creatinine 2.9 H 2.8 H Estim Creat Clear Calc 15.7 L 16.2 L eGFR 16 L 17 L BUN/Creatinine Ratio 37 H 38 H Glucose 310 H 310 H Calculated Osmolality 345 H 343 H Lactic Acid 1.8 Calcium 8.6 8.7 Corrected Calcium 9.1 Phosphorus 3.2 Magnesium 1.5 L Total Bilirubin 0.7 AST 39 H ALT 23 Alkaline Phosphatase 55 D Total Protein 4.9 L Albumin 3.5 Globulin 1.4 L Albumin/Globulin Ratio 2.5 H Ur Collection Type Urine Color Urine Clarity Urine pH Ur Specific [place] Urine Protein Urine Glucose (UA) Urine Ketones Urine Blood Urine Nitrite Urine Bilirubin Urine Urobilinogen (Auto) Ur Leukocyte Esterase Urine RBC Urine WBC Ur Squamous Epith Cells Urine Bacteria Ur Culture Indicated? Blood Type Antibody Screen [place] Blood Bank Wristband ID 12/22/24 07:17 WBC RBC Hgb Hct MCV MCH MCHC RDW Std Deviation Plt Count Neut % (Auto) Lymph % (Auto) Sharkey % (Auto) Eos % (Auto) Baso % (Auto) Neut # (Auto) Lymph # (Auto) Sharkey # (Auto) Eos # (Auto) Baso # (Auto) Immature Gran # (Auto) Absolute Nucleated RBC Immature Gran % Nucleated RBC % Puncture Site Right Radial ABG pH 7.43 D ABG pCO2 37 ABG pO2 63 L D ABG HCO3 25 ABG O2 Saturation 94 ABG Base Excess 0 VBG pH VBG pCO2 VBG pO2 VBG O2 Sat (Shira) VBG Base Excess Oxygen Liter Flow 2 FiO2 21 Sodium Potassium Chloride Carbon Dioxide Anion Gap BUN Creatinine Estim Creat Clear Calc eGFR BUN/Creatinine Ratio Glucose Calculated Osmolality Lactic Acid Calcium Corrected Calcium Phosphorus Magnesium Total Bilirubin AST ALT Alkaline Phosphatase Total Protein Albumin Globulin Albumin/Globulin Ratio Ur Collection Type Urine Color Urine Clarity Urine pH Ur Specific [place] Urine Protein Urine Glucose (UA) Urine Ketones Urine Blood Urine Nitrite Urine Bilirubin Urine Urobilinogen (Auto) Ur Leukocyte Esterase Urine RBC Urine WBC Ur Squamous Epith Cells Urine Bacteria Ur Culture Indicated? Blood Type Antibody Screen Crossmatch Blood Bank Wristband ID ABG Interpretation ABG results: 12/21/24 12/21/24 12/21/24 08:59 18:46 21:36 ABG pH 7.30 L 7.23 L ABG pCO2 38 36 ABG pO2 93 278 H D ABG HCO3 19 L 15 L ABG O2 Saturation 97 100 H ABG Base Excess -7 L -12 L VBG pH 7.35 VBG pCO2 34 L VBG pO2 97 H VBG Base Excess -6 L 12/22/24 07:17 ABG pH 7.43 D ABG pCO2 37 ABG pO2 63 L D ABG HCO3 25 ABG O2 Saturation 94 ABG Base Excess 0 VBG pH VBG pCO2 VBG pO2 VBG Base Excess Quality Measures Quality Measures none Advance care planning discussed with:: other Assessment & Plan Assessment Current Active Medications: Generic Name Dose Route Start Last Admin Trade Name Freq PRN Reason Stop Dose Admin Acetaminophen 650 mg 12/21/24 12:10 Acetaminophen 325 Mg Tablet PO 01/20/25 12:09 Q6H PRN Fever >101.5 Acetaminophen 650 mg 12/21/24 12:10 Acetaminophen 325 Mg Tablet PO 01/20/25 12:09 Q6H PRN PAIN SCALE 1-3 (mild Hydrocodone Bitart/Acetaminophen 1 tab 12/21/24 12:10 Hydrocodone/Apap 5/325 Tablet PO 12/26/24 12:09 Q4HR PRN PAIN SCALE 4-6 (Moderate Dextrose 25 ml 12/21/24 12:37 Dextrose 50%-Water Inj 50 Ml Syringe IV 01/20/25 12:36 Q15MIN PRN BG 50-70 responsive npo pt Dextrose 50 ml 12/21/24 12:37 Dextrose 50%-Water Inj 50 Ml Syringe IV 01/20/25 12:36 Q15MIN PRN BG <50 OR BG <70 & pt unresponsive Glucagon 1 mg 12/21/24 12:37 Glucagon Inj 1 Mg Vial IM Q15MIN PRN BG <70, and no IV access Magnesium Sulfate 4 gm in 50 mls @ 12.5 mls/hr 12/22/24 07:29 12/22/24 09:45 Magnesium Sulfate Ivpb IV 12/22/24 11:28 12.5 mls/hr X1 ONE Administration Sodium Chloride 1,000 mls @ 80 mls/hr 12/22/24 08:36 12/22/24 09:44 Ns 0.45% IV 01/21/25 08:35 80 mls/hr .[id number] MAYCO Administration Insulin Degludec 10 unit 12/22/24 09:00 12/22/24 10:02 Insulin Degludec 5 Unit/0.05 Ml (Per 5 Units) SC 01/21/25 08:59 10 unit QDAY MAYCO Administration Insulin Human Lispro 0 unit 12/22/24 12:00 Insulin Lispro (Admelog) 1 Unit/0.01 Ml Unit SC 01/21/25 11:59 Q6HR MAYCO Protocol Ondansetron HCl 4 mg 12/21/24 12:10 Ondansetron Inj 2 Mg/Ml Inj 2 Ml IVP 01/20/25 12:09 Q6H PRN NAUSEA OR VOMITING Protocol Pantoprazole Sodium 40 mg 12/22/24 09:00 12/22/24 09:44 Pantoprazole Inj 40 Mg Vial IVP 01/21/25 08:59 40 mg Q12HR MAYCO Administration Plan Patient is a 74 yo F with PMH of DM, HTN, HLD, CAD with stent, gout presenting to the ED on 12/21/24 for hematemesis; patient admitted on 12/21/24 for management of GI bleed. #GI bleed (upper versus lower) #Hematemesis #Acute blood loss anemia Patient states that she had a hematemesis episode 12/21/24 a.m., has never had this before, had another hematemesis episode in the ED; patient has no history of alcohol use disorder or cirrhosis. Hgb on admission is 8.9; previous baseline is 9-10. CT head negative for mass, hemorrhage, or midline shift; CT abdomen pelvis suspicious for gastritis, splenomegaly, no appendicitis or colitis. Patient received 3 units pRBCs during and after 12/21/24 rapid, which had hematemesis and melena; hgb today 10.1 Plan: GI consulted, will have EGD tonight Protonix 40 twice daily Patient placed n.p.o. 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 On 12/22/24 labs, sodium was 150; giving 0.45% NS @ 80cc/h Plan: continue 0.45% NS @ 80cc/h Trend electrolytes with labs, #HTN #DM #HLD #CAD #Gout Patient takes atorvastatin, allopurinol, Farxiga, metoprolol, Jardiance at home. Plan: Insulin degludec 10 plus sliding scale Hold all other home medications Disposition: pending EGD DVT prophylaxis: SCD GI prophylaxis: protonix 40 BID Diet: NPO Lines: PIV CODE STATUS: Full This case was discussed with my attending physician, Dr. Mccoy, and senior resident, Dr. Guy. Stephan Victoria MD-PhD, PGY1 Attending Provider Attestation/Addendum Laura Murillo DO, attest that I was physically present for the pinedo portions of the service and evaluated the patient with the resident and I reviewed and discussed the case with the resident and agree with the resident's findings and plans of care as documented above Patient seen and evaluated this AM. She states she is feeling improved today. Patient had a rapid response overnight due to orthostatic hypotension while using the bathroom. BP improved with IV fluid. Hyperkalemia resolved with bicarb drip overnight and discontinued once metabolic acidosis resolved. Patient appears euvolemic. Pending EGD this afternoon. No further episodes of hematemesis. Patient received 3 units of PRBCs, Hgb now 10. Will continue to monitor H/H. Case was discussed with nephrology. Recommends 1/2NS due to hypernatremia. Will monitor fluid status closely. Patient remains NPO at this time.
--- NOTE | 2024-12-22 11:32 | PD.RESCONSUL ---
HPI Data of Consult Consult date: 12/22/24 Requesting Physician: Laura Mccoy DO Admitting Provider: Laura Mccoy DO Attending Provider: Laura Mccoy DO Primary Care Provider: Puneet Agnuiano MD Consult Narrative Reason for consult: DANIAL History of present illness: Ms Granda is a 74-year-old female with past medical history of type 2 diabetes mellitus, hypertension, hyperlipidemia, coronary artery disease status post stent, and CKD, who presented on 12/21/2024 with hematemesis. She reported one episode of bright red blood in vomitus in the morning followed by another episode in the ED. She denied melena, hematochezia, abdominal pain, or NSAID use, and takes only daily aspirin. No prior history of GI bleed, cirrhosis, or alcohol use. In the ED, her hemoglobin was 8.9 (baseline 9?10), BUN 106, creatinine 3.1 (baseline ~2.0), and potassium 5.2. She received 1 unit PRBC and 1 L normal saline. GI was consulted and recommended PPI infusion and EGD. CT abdomen/pelvis was suggestive of gastritis with splenomegaly. Patient denies flank pain, dysuria, or decreased urine output. No recent contrast exposure or nephrotoxin use reported. Nephrology was consulted for acute kidney injury on chronic kidney disease. 12/22/2024: Patient seen resting comfortably in bed. No acute complaints. Denies chest pain, dyspnea, or abdominal pain. Reports no nausea, vomiting, or further hematemesis since this morning. Awaiting EGD today. Labs: WBC 9.8, Hgb 10.1, Hct 29.9, Plt 119, Na 140, K 4.7, Cl 112, CO2 24.2, BUN 105, Cr 2.8 (from 3.1), GFR 17, Glu 310, Ca 9.1, Phos 3.2, Mg 1.5. UA negative. ABG: pH 7.43, pCO2 37, PaO2 63, HCO3 25. cc:: cc: Laura Mccoy DO Review of Systems Constitutional Comments: negative unless stated above Exam Vital Signs Temp Pulse Resp BP Pulse Ox O2 Del Method O2 Flow Rate 97.1 F 99 20 153/96 H 94 L Humidified Nasal Cannula 2 12/22/24 08:00 12/22/24 08:00 12/22/24 08:00 12/22/24 08:00 12/22/24 08:00 12/22/24 08:00 12/22/24 08:00 Narrative Exam General: Awake, alert, in no acute distress. Lungs: Clear to auscultation bilaterally. Heart: Regular rhythm, no murmurs, no JVD. Abdomen: Soft, non-tender, no rebound/guarding. Extremities: No edema. Neuro: Oriented ? 3. Results Labs 12/22/24 05:50 12/22/24 05:50 Labs: Short CBC 12/21/24 12/21/24 12/21/24 Range/Units 14:20 17:57 22:50 WBC 9.3 (3.6-11.0) Thou/mm3 Hgb 8.5 L 8.2 L 7.1 L (12.0-16.0) g/dL Hct 26.6 L 25.6 L 21.8 L* (36.0-46.0) % Plt Count 153 D (140-440) Thou/mm3 12/22/24 Range/Units 05:50 WBC 9.8 (3.6-11.0) Thou/mm3 Hgb 10.1 L D (12.0-16.0) g/dL Hct 29.9 L (36.0-46.0) % Plt Count 119 L D (140-440) Thou/mm3 BMP 12/21/24 12/21/24 12/21/24 15:22 17:57 21:36 Sodium 145 144 Cancelled Potassium 6.0 H D 6.0 H Chloride 114 H 115 H Carbon Dioxide 18.8 L 15.1 L BUN 108 H* 87 H Creatinine 2.9 H 2.9 H Glucose 219 H 258 H Calcium 8.4 9.0 12/21/24 12/21/24 12/21/24 21:36 21:36 21:36 Sodium 149 H Potassium Cancelled 4.5 D Chloride Cancelled 114 H Carbon Dioxide Cancelled BUN Creatinine Glucose Calcium 12/21/24 12/21/24 12/21/24 21:36 21:36 21:36 Sodium Potassium Chloride Carbon Dioxide 20.8 BUN Cancelled 114 H* Creatinine Cancelled 3.0 H Glucose Cancelled Calcium 12/21/24 12/21/24 12/22/24 21:36 21:36 02:15 Sodium 151 H Potassium 5.1 D Chloride 113 H Carbon Dioxide 23.9 BUN 108 H* Creatinine 2.9 H Glucose 333 H D 310 H Calcium Cancelled 8.4 8.6 12/22/24 05:50 Sodium 150 H Potassium 4.7 Chloride 112 H Carbon Dioxide 24.2 BUN 105 H* Creatinine 2.8 H Glucose 310 H Calcium 8.7 Liver Function 12/21/24 12/21/24 12/21/24 Range/Units 15:22 17:57 21:36 Total Bilirubin (0.3-1.2) mg/dL AST (0-34) U/L ALT (10-49) U/L Alkaline Phosphatase (46-116) U/L Albumin 3.6 3.5 Cancelled (3.4-4.8) gm/dL 12/21/24 12/22/24 Range/Units 21:36 05:50 Total Bilirubin 0.7 (0.3-1.2) mg/dL AST 39 H (0-34) U/L ALT 23 (10-49) U/L Alkaline Phosphatase 55 D (46-116) U/L Albumin 3.4 3.5 (3.4-4.8) gm/dL ABG Interpretation ABG results: 12/21/24 12/21/24 12/21/24 08:59 18:46 21:36 ABG pH 7.30 L 7.23 L ABG pCO2 38 36 ABG pO2 93 278 H D ABG HCO3 19 L 15 L ABG O2 Saturation 97 100 H ABG Base Excess -7 L -12 L VBG pH 7.35 VBG pCO2 34 L VBG pO2 97 H VBG Base Excess -6 L 12/22/24 07:17 ABG pH 7.43 D ABG pCO2 37 ABG pO2 63 L D ABG HCO3 25 ABG O2 Saturation 94 ABG Base Excess 0 VBG pH VBG pCO2 VBG pO2 VBG Base Excess Quality Measures Quality Measures VTE prophylaxis Advance care planning discussed with:: patient Medications Home Medications and Allergies Home Medications ?Medication ?Instructions ?Recorded ?Confirmed ?Type allopurinol 300 mg tablet 300 mg PO QDAY 05/24/21 12/23/23 History sitagliptin phosphate 100 mg 100 mg PO QDAY 05/24/21 12/23/23 History tablet (Januvia) vitamin B complex-vitamin C-folic 1 tab PO QDAY 05/24/21 12/23/23 History acid 0.8 mg tablet (Cari-Marycruz) aspirin 81 mg tablet,delayed 81 mg PO QDAY 06/21/23 12/23/23 History release Held on 12/29/23. Instructions: Resume on 01/11/24. Please follow up with [employer] Calender Operator, Dr. Freire in order to resume Aspirin. sodium bicarbonate 325 mg tablet 325 mg PO DAILY 06/21/23 12/23/23 History irbesartan 150 mg tablet 150 mg PO QDAY 06/23/23 06/23/23 History atorvastatin 80 mg tablet 80 mg PO DAILY 12/23/23 12/23/23 History clopidogrel 75 mg tablet (Plavix) 75 mg PO DAILY 12/23/23 12/23/23 History Held on 12/29/23. Instructions: Resume on 01/11/24. Please follow up with Ins[employer] Calender Operator, Dr. Freire in order to resume Clopidogrel (Plavix). dapagliflozin propanediol 5 mg 5 mg PO DAILY 12/23/23 12/23/23 History tablet (Farxiga) ferrous sulfate 325 mg (65 mg 325 mg PO DAILY 12/23/23 12/23/23 History iron) tablet hydrochlorothiazide 25 mg tablet 25 mg PO DAILY 12/23/23 12/23/23 History insulin glargine 100 unit/mL (3 10 unit subcut QAM 12/23/23 12/23/23 History mL) subcutaneous pen (Lantus Solostar U-100 Insulin) meclizine 12.5 mg tablet 12.5 mg PO BID PRN Dizziness 12/23/23 12/23/23 History metoprolol tartrate 25 mg tablet 25 mg PO QDAY 12/23/23 12/23/23 History pentoxifylline 400 mg 400 mg PO QDAY 12/23/23 12/23/23 History tablet,extended release warfarin 5 mg tablet 5 mg PO DAILY 12/23/23 12/23/23 History Allergies Allergy/AdvReac Type Severity Reaction Status Date / Time No Known Allergies Allergy Verified 12/22/23 21:38 Visit Medications Acetaminophen (Acetaminophen 325 Mg Tablet) 650 mg PO Q6H PRN PRN Reason: Fever >101.5 Stop: 01/20/25 12:09 Acetaminophen (Acetaminophen 325 Mg Tablet) 650 mg PO Q6H PRN PRN Reason: PAIN SCALE 1-3 (mild Stop: 01/20/25 12:09 Hydrocodone Bitart/Acetaminophen (Hydrocodone/Apap 5/325 Tablet) 1 tab PO Q4HR PRN PRN Reason: PAIN SCALE 4-6 (Moderate Stop: 12/26/24 12:09 Dextrose (Dextrose 50%-Water Inj 50 Ml Syringe) 25 ml IV Q15MIN PRN PRN Reason: BG 50-70 responsive npo pt Stop: 01/20/25 12:36 Dextrose (Dextrose 50%-Water Inj 50 Ml Syringe) 50 ml IV Q15MIN PRN PRN Reason: BG <50 OR BG <70 & pt unresponsive Stop: 01/20/25 12:36 Glucagon (Glucagon Inj 1 Mg Vial) 1 mg IM Q15MIN PRN PRN Reason: BG <70, and no IV access Sodium Chloride (Ns 0.45%) 1,000 mls @ 80 mls/hr IV .[id number] [facility] Stop: 01/21/25 08:35 Last Admin: 12/22/24 09:44 Dose: 80 mls/hr Insulin Degludec (Insulin Degludec 5 Unit/0.05 Ml (Per 5 Units)) 10 unit SC QDAY [facility] Stop: 01/21/25 08:59 Last Admin: 12/22/24 10:02 Dose: 10 unit Insulin Human Lispro (Insulin Lispro (Admelog) 1 Unit/0.01 Ml Unit) 0 unit SC Q6HR [facility]; Protocol Stop: 01/21/25 11:59 Ondansetron HCl (Ondansetron Inj 2 Mg/Ml Inj 2 Ml) 4 mg IVP Q6H PRN; Protocol PRN Reason: NAUSEA OR VOMITING Stop: 01/20/25 12:09 Pantoprazole Sodium (Pantoprazole Inj 40 Mg Vial) 40 mg IVP Q12HR [facility] Stop: 01/21/25 08:59 Last Admin: 12/22/24 09:44 Dose: 40 mg Discontinued Medications Albuterol (Albuterol Rt 2.5 Mg/0.5 Ml Nebu) 10 mg INH X1 ONE Stop: 12/21/24 17:02 Last Admin: 12/21/24 17:23 Dose: 10 mg Dextrose (Dextrose 50%-Water Inj 50 Ml Syringe) 50 ml IVP X1 ONE Stop: 12/21/24 17:02 Last Admin: 12/21/24 20:55 Dose: 50 ml Sodium Chloride (Ns) 1,000 mls @ 999 mls/hr IV .Q1H1M ONE Stop: 12/21/24 08:27 Last Infusion: 12/21/24 08:55 Dose: Infused Pantoprazole Sodium (Protonix/Ns 80mg Iv Premix) 80 mg in 100 mls @ 10 mls/hr IV X1 ONE Stop: 12/21/24 18:07 Last Infusion: 12/21/24 09:37 Dose: 10 mls/hr Calcium Gluconate/Sodium Chloride (Calcium Gluc/Ns 1000mg Ivpb) 1,000 mg in 50 mls @ 50 mls/hr IV X1 ONE Stop: 12/21/24 10:14 Last Infusion: 12/21/24 10:37 Dose: Infused Lactated Ringer's (Lactated Ringers) 1,000 mls @ 999 mls/hr IV .Q1H1M ONE Stop: 12/21/24 19:11 Last Admin: 12/21/24 18:37 Dose: 999 mls/hr Sodium Bicarbonate 88.23 meq/ (Dextrose) 588.23 mls @ 100 mls/hr IV .Q5H53M [facility] Stop: 01/20/25 18:57 Sodium Bicarbonate 88.23 meq/ (Dextrose) 588.23 mls @ 60 mls/hr IV .Q9H49M [facility] Stop: 01/20/25 19:01 Sodium Bicarbonate 88.23 meq/ (Dextrose) 588.23 mls @ 80 mls/hr IV .Q7H22M [facility] Stop: 01/20/25 20:46 Last Admin: 12/21/24 22:21 Dose: 80 mls/hr Magnesium Sulfate (Magnesium Sulfate Ivpb) 4 gm in 50 mls @ 12.5 mls/hr IV X1 ONE Stop: 12/22/24 11:28 Last Admin: 12/22/24 09:45 Dose: 12.5 mls/hr Insulin Human Lispro (Insulin Lispro (Admelog) 1 Unit/0.01 Ml Unit) 0 unit SC [facility]; Protocol Stop: 01/20/25 16:59 Last Admin: 12/21/24 17:25 Dose: Not Given Insulin Human Lispro (Insulin Lispro (Admelog) 1 Unit/0.01 Ml Unit) 0 unit SC ACHS [facility]; Protocol Stop: 01/20/25 22:44 Last Admin: 12/22/24 09:57 Dose: Not Given Insulin Human Regular (Insulin Hum Regular 1 Unit/0.01 Ml (Per Unit)) 5 unit IV X1 ONE Stop: 12/21/24 17:02 Last Admin: 12/21/24 20:38 Dose: 5 unit Ondansetron HCl (Ondansetron Inj 2 Mg/Ml Inj 2 Ml) 4 mg IVP X1 ONE; Protocol Stop: 12/21/24 07:27 Last Admin: 12/21/24 07:54 Dose: 4 mg Pantoprazole Sodium (Pantoprazole Inj 40 Mg Vial) 80 mg IVP X1 ONE Stop: 12/21/24 07:27 Last Admin: 12/21/24 07:53 Dose: 80 mg Sodium Bicarbonate (Sodium Bicarb Inj 8.4% 1 Meq/Ml 50 Ml Vial) 50 meq IV X1 ONE Stop: 12/21/24 18:59 Last Admin: 12/21/24 20:34 Dose: 50 meq Sodium Polystyrene Sulfonate (Sod Polystyrene Sulfon Susp 15 Gm/60 Ml Btl) 30 gm PO X1 ONE Stop: 12/21/24 17:11 Last Admin: 12/21/24 17:40 Dose: 30 gm Assessment & Plan Plan 74-year-old female with DM2, HTN, CAD s/p stent, and CKD admitted for upper GI bleed and hematemesis, now with DANIAL on CKD likely pre-renal due to hypovolemia from GI bleed, showing mild improvement with hydration. # DANIAL on CKD Likely pre-renal azotemia from volume depletion secondary to GI bleed Creatinine improving (3.1 -> 2.8). No evidence of obstruction or intrinsic renal process. Plan: Continue ? NS at 80 mL/hr; avoid overhydration given CAD history. Hold nephrotoxins and RAAS inhibitors. Monitor strict I/Os and daily weights. Repeat renal panel and urine electrolytes in AM. No indication for dialysis at this time. If urine output decreases or metabolic abnormalities worsen, will re-evaluate for SUSTAIN[employer] DES[employer] CONSULTANT. # Hypernatremia (resolving) Sodium trended from 151 -> 150 Likely dehydration-related. Plan: Continue ?NS at current rate. Repeat sodium q6h; goal 145. Other active problems: # GI bleed, hematemesis # DM2 # HTN # CAD # HLD Management per primary team ----- Plan discussed with attending physician Dr. Manjit Fish MD PGY-1 Internal Medicine Attending Provider Attestation/Addendum Patient currently seen and examined with resident physician Dr. Fish. Note reviewed, agree with findings and recommendations. BUN out of proportion to creatinine-most likely related to underlying GI bleed. Patient going for endoscopy. Hemoglobin stable. Potassium improved with medical management. Thank you Dr. Mccoy for allowing me to participate in the care of Mr. Zuñiga
[2024-12-22] MEDS: INSULIN LISPRO (AdmeLOG) 1 UNIT/0.01 ML UNIT SC ×2 (11:59→18:02)
[2024-12-22] MEDS: ACETAMINOPHEN 325 MG TABLET 650 MG PO (13:52)
--- NOTE | 2024-12-22 14:00 | PC.SS ---
Rounding Note: EGD planned for today. GI consulting.
--- NOTE | 2024-12-22 14:00 | PC.SS ---
Rounding Note: EEG planned for today. GI consulting.
--- NOTE | 2024-12-22 20:51 | SUR.PHASEI ---
Taken to room 267 via gurney by Anibal RAINEY. No c/o pain or discomfort. No s/o distress.
[2024-12-23] VITALS (8 sets, daily range): BP systolic 144–177; BP diastolic 80–92; PULSE 59–97; RESP 12–28; TEMP 36.1–36.7; O2SAT 93–99; BMI 12.0
[2024-12-23] MEDS: SODIUM CHLORIDE 0.45 % 1,000 ML 80 ML IV (01:01)
[2024-12-23 05:58] LABS: Basophils # (Auto) 0.0 Thou/mm3 (0.0-0.2); Basophils % (Auto) 0 % (0-2.5); Eosinophils # (Auto) 0.0 Thou/mm3 (0.0-0.5); Eosinophils % (Auto) 0 % (0-10); Hematocrit 29.3 % (36.0-46.0); Hemoglobin 9.7 g/dL (12.0-16.0); Immature Granulocytes Auto 0.05 Thou/mm3 (0.00-0.00); Lymphocytes # (Auto) 1.5 Thou/mm3 (1.0-4.8); Lymphocytes % (Auto) 14 % (10-50); Mean Corpuscular HGB Conc 33.1 g/dl (31.0-37.0); Mean Corpuscular Hemoglobin 28.4 pg (25.0-35.0); Mean Corpuscular Volume 86 fL (80-100); Monocytes # (Auto) 0.9 Thou/mm3 (0.0-0.8); Monocytes % (Auto) 8 % (0-12); Neutrophils # (Auto) 8.6 Thou/mm3 (1.8-7.7); Neutrophils % (Auto) 77 % (37-80); Nucleated Red Blood Cell # 0.00 Thou/mm3 (0.00-0.00); Nucleated Red Blood Cell % 0 /100 WBC (0); Platelet Count 136 Thou/mm3 (140-440); RDW Standard Deviation 52.5 fL (36.4-46.3); Red Blood Count 3.42 Miln/mm3 (4.00-5.20); White Blood Count 11.1 Thou/mm3 (3.6-11.0)
[2024-12-23 06:28] LABS: Alanine Aminotransferase 20 U/L (10-49); Albumin, Serum 3.5 gm/dL (3.4-4.8); Albumin/Globulin Ratio 2.5 (1.2-2.2); Alkaline Phosphatase 54 U/L (46-116); Anion Gap 12 (7-16); Aspartate Amino Transferase 34 U/L (0-34); BUN/Creatinine Ratio 30 Ratio (12-20); Bilirubin,Total 1.0 mg/dL (0.3-1.2); Blood Urea Nitrogen 82 mg/dL (9-23); Calcium 8.8 mg/dL (8.3-10.6); Calcium (Corrected) 9.2 mg/dL (8.5-10.1); Carbon Dioxide 28.7 mMol/L (20.0-31.0); Chloride 115 mMol/L (98-107); Creatinine (Component) 2.7 mg/dL (0.6-1.3); Estimated Creatinine Clearance 16.8 mL/min (>60); Globulin 1.4 gm/dL (2.3-3.5); Glucose 161 mg/dL (74-106); Magnesium 2.6 mg/dL (1.6-2.6); Osmolality,Calculated 336 (275-295); Phosphorous 3.6 mg/dL (2.4-5.1); Potassium 3.9 mMol/L (3.4-5.1); Sodium 156 mMol/L (136-145); Total Protein 4.9 gm/dL (5.7-8.2); eGFR 18 See Note
[2024-12-23] MEDS: INSULIN DEGLUDEC 5 UNIT/0.05 ML (PER 5 UNITS) 10 UNIT SC (08:05)
[2024-12-23] MEDS: DEXTROSE 5%-WATER 500 ML 125 ML IV ×2 (08:14→12:27)
--- NOTE | 2024-12-23 09:49 | ESPR_ITS ---
Documentation for date of: 12/23/24 Subjective Subjective Interval history: Reason for consult: DANIAL History of present illness: Ms Granda is a 74-year-old female with past medical history of type 2 diabetes mellitus, hypertension, hyperlipidemia, coronary artery disease status post stent, and CKD, who presented on 12/21/2024 with hematemesis. She reported one episode of bright red blood in vomitus in the morning followed by another episode in the ED. She denied melena, hematochezia, abdominal pain, or NSAID use, and takes only daily aspirin. No prior history of GI bleed, cirrhosis, or alcohol use. In the ED, her hemoglobin was 8.9 (baseline 9?10), BUN 106, creatinine 3.1 (baseline ~2.0), and potassium 5.2. She received 1 unit PRBC and 1 L normal saline. GI was consulted and recommended PPI infusion and EGD. CT abdomen/pelvis was suggestive of gastritis with splenomegaly. Patient denies flank pain, dysuria, or decreased urine output. No recent contrast exposure or nephrotoxin use reported. Nephrology was consulted for acute kidney injury on chronic kidney disease. 12/22/2024: Patient seen resting comfortably in bed. No acute complaints. Denies chest pain, dyspnea, or abdominal pain. Reports no nausea, vomiting, or further hematemesis since this morning. Awaiting EGD today. Labs: WBC 9.8, Hgb 10.1, Hct 29.9, Plt 119, Na 140, K 4.7, Cl 112, CO2 24.2, BUN 105, Cr 2.8 (from 3.1), GFR 17, Glu 310, Ca 9.1, Phos 3.2, Mg 1.5. UA negative. ABG: pH 7.43, pCO2 37, PaO2 63, HCO3 25. 12/23/2024: Seen today, patient doing well with no complaints. Resting comfortably in bed. Lungs are clear, no shortness of breath or chest pain. Labs: WBC 11.1, Hgb 9.7, Hct 29.3, Plt 136, Na 156 (yesterday 155), K 3.9, Cl 115, CO2 28.7, BUN 82 (from 105 yesterday), Cr 2.7 (from 2.8 yesterday), Glucose 161, Calculated Osmolality 336, Ca 9.2, Phos 3.6, Mg 2.6 Exam Vital Signs Temp Pulse Resp BP Pulse Ox O2 Del Method O2 Flow Rate 96.9 F 90 28 H 177/88 H 93 L Room Air 1 12/23/24 07:59 12/23/24 07:59 12/23/24 07:59 12/23/24 07:59 12/23/24 07:59 12/23/24 07:59 12/23/24 04:00 Narrative Exam General: Alert, oriented, no acute distress CV: Regular rate and rhythm, no murmurs or JVD Pulm: Clear to auscultation bilaterally Abdomen: Soft, non-tender, no distension Extremities: No edema, peripheral pulses intact Neuro: Alert, oriented, no focal deficits Objective Labs 12/23/24 04:48 12/23/24 04:48 Labs: Laboratory Results - last 24 hr 12/23/24 04:48 WBC 11.1 H RBC 3.42 L Hgb 9.7 L Hct 29.3 L MCV 86 MCH 28.4 MCHC 33.1 RDW Std Deviation 52.5 H Plt Count 136 L Neut % (Auto) 77 Lymph % (Auto) 14 [place] % (Auto) 8 Eos % (Auto) 0 Baso % (Auto) 0 Neut # (Auto) 8.6 H Lymph # (Auto) 1.5 [place] # (Auto) 0.9 H Eos # (Auto) 0.0 Baso # (Auto) 0.0 Immature Gran # (Auto) 0.05 H Absolute Nucleated RBC 0.00 Immature Gran % 0 Nucleated RBC % 0 Sodium 156 H Potassium 3.9 D Chloride 115 H Carbon Dioxide 28.7 Anion Gap 12 BUN 82 H Creatinine 2.7 H Estim Creat Clear Calc 16.8 L eGFR 18 L BUN/Creatinine Ratio 30 H Glucose 161 H D Calculated Osmolality 336 H Calcium 8.8 Corrected Calcium 9.2 Phosphorus 3.6 Magnesium 2.6 Total Bilirubin 1.0 AST 34 ALT 20 Alkaline Phosphatase 54 Total Protein 4.9 L Albumin 3.5 Globulin 1.4 L Albumin/Globulin Ratio 2.5 H ABG Interpretation ABG results: 12/21/24 12/21/24 12/21/24 08:59 18:46 21:36 ABG pH 7.30 L 7.23 L ABG pCO2 38 36 ABG pO2 93 278 H D ABG HCO3 19 L 15 L ABG O2 Saturation 97 100 H ABG Base Excess -7 L -12 L VBG pH 7.35 VBG pCO2 34 L VBG pO2 97 H VBG Base Excess -6 L 12/22/24 07:17 ABG pH 7.43 D ABG pCO2 37 ABG pO2 63 L D ABG HCO3 25 ABG O2 Saturation 94 ABG Base Excess 0 VBG pH VBG pCO2 VBG pO2 VBG Base Excess Quality Measures Quality Measures VTE prophylaxis Advance care planning discussed with:: patient Assessment & Plan Assessment Current Active Medications: Generic Name Dose Route Start Last Admin Trade Name Freq PRN Reason Stop Dose Admin Acetaminophen 650 mg 12/21/24 12:10 Acetaminophen 325 Mg Tablet PO 01/20/25 12:09 Q6H PRN Fever >101.5 Acetaminophen 650 mg 12/21/24 12:10 12/22/24 13:52 Acetaminophen 325 Mg Tablet PO 01/20/25 12:09 650 mg Q6H PRN Administration PAIN SCALE 1-3 (mild Hydrocodone Bitart/Acetaminophen 1 tab 12/21/24 12:10 Hydrocodone/Apap 5/325 Tablet PO 12/26/24 12:09 Q4HR PRN PAIN SCALE 4-6 (Moderate Dextrose 25 ml 12/21/24 12:37 Dextrose 50%-Water Inj 50 Ml Syringe IV 01/20/25 12:36 Q15MIN PRN BG 50-70 responsive npo pt Dextrose 50 ml 12/21/24 12:37 Dextrose 50%-Water Inj 50 Ml Syringe IV 01/20/25 12:36 Q15MIN PRN BG <50 OR BG <70 & pt unresponsive Glucagon 1 mg 12/21/24 12:37 Glucagon Inj 1 Mg Vial IM Q15MIN PRN BG <70, and no IV access Dextrose 500 mls @ 125 mls/hr 12/23/24 07:45 12/23/24 08:14 D5w IV 12/23/24 15:44 125 mls/hr .Q4H [facility] Administration Insulin Degludec 10 unit 12/22/24 09:00 12/23/24 08:05 Insulin Degludec 5 Unit/0.05 Ml (Per 5 Units) SC 01/21/25 08:59 10 unit QDAY [facility] Administration Insulin Human Lispro 0 unit 12/23/24 07:30 12/23/24 07:55 Insulin Lispro (Admelog) 1 Unit/0.01 Ml Unit SC 01/22/25 07:29 Not Given ACHS [facility] Protocol Ondansetron HCl 4 mg 12/21/24 12:10 Ondansetron Inj 2 Mg/Ml Inj 2 Ml IVP 01/20/25 12:09 Q6H PRN NAUSEA OR VOMITING Protocol Pantoprazole Sodium 40 mg 12/22/24 09:00 12/23/24 08:00 Pantoprazole Inj 40 Mg Vial IVP 01/21/25 08:59 40 mg Q12HR [facility] Administration Plan 74-year-old female with DM2, HTN, CAD s/p stent, and CKD admitted for upper GI bleed and hematemesis, now with DANIAL on CKD likely pre-renal due to hypovolemia from GI bleed, showing mild improvement with hydration. # DANIAL on CKD Likely pre-renal azotemia from volume depletion secondary to GI bleed Slight improvement in renal function (Cr 2.7 from 2.8), stable volume status with continued fluid management. No evidence of obstruction or intrinsic renal process. Plan: * Switched ? NS to D5W at 125 mL/hr. * Monitor renal panel at 14:00 for further trends. * Hold nephrotoxins and RAAS inhibitors. * Monitor strict I/Os and daily weights. * No indication for dialysis at this time. # Hypernatremia Sodium trended up from 151 -> 150-> 156 while on half NS Likely dehydration-related. Plan: * Switched ? NS to D5W at 125 mL/hr. * Repeat sodium q4h; goal 145. Other active problems: # GI bleed, hematemesis # DM2 # HTN # CAD # HLD Management per primary team ----- Plan discussed with attending physician Dr. Manjit Fish MD PGY-1 Internal Medicine Attending Provider Attestation/Addendum Patient currently seen and examined with resident physician Dr. Fish. Note reviewed, agree with findings and recommendations. BUN out of proportion to creatinine-most likely related to underlying GI bleed. Patient had endoscopy. Hemoglobin stable. Potassium improved with medical management. Spoke to primary team and Dr. Mccoy. Renal gauthier stable for discharge if electrolytes improved by end of the day. Thank you Dr. Mccoy for allowing me to participate in the care of Ms Granda
[2024-12-23] MEDS: METOPROLOL TARTRATE 25 MG TABLET PO (12:19)
[2024-12-23] MEDS: INSULIN LISPRO (AdmeLOG) 1 UNIT/0.01 ML UNIT SC ×2 (12:21→17:13)
--- NOTE | 2024-12-23 13:35 | PD.RESPRO ---
Documentation for date of: 12/23/24 Subjective Subjective Interval history: Patient was seen examined bedside's morning. No acute overnight events. Patient underwent EGD last night and showed hemorrhagic gastritis with a polyp in the fundic portion of the stomach. Esophagus was normal. GI recommended to continue with Protonix and advance diet as tolerated. Patient mildly hypernatremic therefore ordered D5W and water deficit with 2.8 L. Complained of some suprapubic pain and burning with urination, will get UA and rocephin 1g daily. Will get physical therapy to work with patient patient had a syncopal episode, expect possible discharge later 24 to 48 hours. Exam Vital Signs Temp Pulse Resp BP Pulse Ox O2 Del Method O2 Flow Rate 97.2 F 78 17 161/86 H 94 L Room Air 1 12/23/24 12:00 12/23/24 12:19 12/23/24 12:00 12/23/24 12:19 12/23/24 12:00 12/23/24 12:00 12/23/24 04:00 Narrative Exam General: A/O x3, no acute distress, well-nourished, well-developed Eyes: PERRL, EOMI. Anicteric, vision grossly intact. Ears: No ear pain, no ear discharge, Hearing grossly intact. Nose: No nasal discharge. Mouth/Throat: Moist mucous membranes, no redness, no lesions. Neck: Neck supple, non-tender, no cervical lymphadenopathy. Lungs: Clear ANGELICA to auscultation and percussion, No accessory muscle use. Cardio: Normal S1/S2, regular rhythm, no murmurs, no JVD or carotid bruits. Abdomen: Soft, suprapubic tender, no palpable masses, peristalsis present, no guarding or rebound. Extremities: Symmetrical, no significant deformities, no peripheral edema , non-tender, peripheral pulses present. Skin: No rashes, no lesions, warm to touch. Neuro: No focal neurological deficits. motor and sensory intact Psych: Cooperative, appropriate mood and effect. Objective Labs 12/23/24 04:48 12/23/24 13:38 Labs: Laboratory Results - last 24 hr 12/23/24 04:48 WBC 11.1 H RBC 3.42 L Hgb 9.7 L Hct 29.3 L MCV 86 MCH 28.4 MCHC 33.1 RDW Std Deviation 52.5 H Plt Count 136 L Neut % (Auto) 77 Lymph % (Auto) 14 [place] % (Auto) 8 Eos % (Auto) 0 Baso % (Auto) 0 Neut # (Auto) 8.6 H Lymph # (Auto) 1.5 [place] # (Auto) 0.9 H Eos # (Auto) 0.0 Baso # (Auto) 0.0 Immature Gran # (Auto) 0.05 H Absolute Nucleated RBC 0.00 Immature Gran % 0 Nucleated RBC % 0 Sodium 156 H Potassium 3.9 D Chloride 115 H Carbon Dioxide 28.7 Anion Gap 12 BUN 82 H Creatinine 2.7 H Estim Creat Clear Calc 16.8 L eGFR 18 L BUN/Creatinine Ratio 30 H Glucose 161 H D Calculated Osmolality 336 H Calcium 8.8 Corrected Calcium 9.2 Phosphorus 3.6 Magnesium 2.6 Total Bilirubin 1.0 AST 34 ALT 20 Alkaline Phosphatase 54 Total Protein 4.9 L Albumin 3.5 Globulin 1.4 L Albumin/Globulin Ratio 2.5 H ABG Interpretation ABG results: 12/21/24 12/21/24 12/21/24 08:59 18:46 21:36 ABG pH 7.30 L 7.23 L ABG pCO2 38 36 ABG pO2 93 278 H D ABG HCO3 19 L 15 L ABG O2 Saturation 97 100 H ABG Base Excess -7 L -12 L VBG pH 7.35 VBG pCO2 34 L VBG pO2 97 H VBG Base Excess -6 L 12/22/24 07:17 ABG pH 7.43 D ABG pCO2 37 ABG pO2 63 L D ABG HCO3 25 ABG O2 Saturation 94 ABG Base Excess 0 VBG pH VBG pCO2 VBG pO2 VBG Base Excess Quality Measures Quality Measures VTE prophylaxis Advance care planning discussed with:: patient Assessment & Plan Assessment Current Active Medications: Generic Name Dose Route Start Last Admin Trade Name Freq PRN Reason Stop Dose Admin Acetaminophen 650 mg 12/21/24 12:10 Acetaminophen 325 Mg Tablet PO 01/20/25 12:09 Q6H PRN Fever >101.5 Acetaminophen 650 mg 12/21/24 12:10 12/22/24 13:52 Acetaminophen 325 Mg Tablet PO 01/20/25 12:09 650 mg Q6H PRN Administration PAIN SCALE 1-3 (mild Hydrocodone Bitart/Acetaminophen 1 tab 12/21/24 12:10 Hydrocodone/Apap 5/325 Tablet PO 12/26/24 12:09 Q4HR PRN PAIN SCALE 4-6 (Moderate Atorvastatin Calcium 80 mg 12/23/24 21:00 Atorvastatin Calcium 20 Mg Tablet PO 01/22/25 20:59 HS MAYCO Dextrose 25 ml 12/21/24 12:37 Dextrose 50%-Water Inj 50 Ml Syringe IV 01/20/25 12:36 Q15MIN PRN BG 50-70 responsive npo pt Dextrose 50 ml 12/21/24 12:37 Dextrose 50%-Water Inj 50 Ml Syringe IV 01/20/25 12:36 Q15MIN PRN BG <50 OR BG <70 & pt unresponsive Glucagon 1 mg 12/21/24 12:37 Glucagon Inj 1 Mg Vial IM Q15MIN PRN BG <70, and no IV access Dextrose 500 mls @ 125 mls/hr 12/23/24 07:45 12/23/24 12:27 D5w IV 12/23/24 15:44 125 mls/hr .Q4H MAYCO Administration Insulin Degludec 10 unit 12/22/24 09:00 12/23/24 08:05 Insulin Degludec 5 Unit/0.05 Ml (Per 5 Units) SC 01/21/25 08:59 10 unit QDAY MAYCO Administration Insulin Human Lispro 0 unit 12/23/24 07:30 12/23/24 12:21 Insulin Lispro (Admelog) 1 Unit/0.01 Ml Unit SC 01/22/25 07:29 3 unit ACHS MAYCO Administration Protocol Metoprolol Tartrate 25 mg 12/23/24 10:00 12/23/24 12:19 Metoprolol Tartrate 25 Mg Tablet PO 01/22/25 09:59 25 mg QDAY MAYCO Administration Ondansetron HCl 4 mg 12/21/24 12:10 Ondansetron Inj 2 Mg/Ml Inj 2 Ml IVP 01/20/25 12:09 Q6H PRN NAUSEA OR VOMITING Protocol Pantoprazole Sodium 40 mg 12/22/24 09:00 12/23/24 08:00 Pantoprazole Inj 40 Mg Vial IVP 01/21/25 08:59 40 mg Q12HR MAYCO Administration Plan 74 yo F with PMH of DM, HTN, HLD, CAD with stent, gout presenting to the ED on 12/21/24 for hematemesis; patient admitted on 12/21/24 for management of GI bleed. #hemorrhagic gastritis #Hematemesis #Acute blood loss anemia Patient states that she had a hematemesis episode 12/21/24 a.m., has never had this before, had another hematemesis episode in the ED; patient has no history of alcohol use disorder or cirrhosis. Hgb on admission is 8.9; previous baseline is 9-10. CT head negative for mass, hemorrhage, or midline shift; CT abdomen pelvis suspicious for gastritis, splenomegaly, no appendicitis or colitis. Patient received 3 units pRBCs during and after 12/21/24 rapid, which had hematemesis and melena; hgb today 9.7 EGD showed hemorraghic gastritis and polyp in the fundic portion of the stomach. Plan: GI on board Protonix 40 twice daily Will transfuse if Hgb less than 8 #DANIAL on [id number] Patient baseline around 1.7-2.0; creatinine on admission is 3.1, creatinine today 2.7 Plan: Avoid nephrotoxic agents renally dose meds Nephro on board #Hyperkalemia, resolved #Hypernatremia patient had K of 5.2 on admission; received calcium gluconate in ED. Na today 156 Plan: D5W as 2.8L free water deficit Renal panel at 2 pm Will f/u #Dysuria Patient complaining of dysuria and suprapubic tenderness Plan: Will get UA Rocephin 1 g qday #HTN #DM #HLD #CAD #Gout Patient takes atorvastatin, allopurinol, Farxiga, metoprolol, Jardiance at home. Plan: Insulin degludec 10 plus sliding scale Restarted metoprolol 25 mg qday Disposition: pending PT DVT prophylaxis: SCD GI prophylaxis: protonix 40 BID Diet: PUD Lines: PIV CODE STATUS: Full Case disclosed with Attending Dr. Darius Stallworth PGY2 Disclaimer: Even though this this note was dictated by speech recognition and even though it was carefully revised there may still be minor errors in recorder helper gravity prospecting due to voice recognition software. Attending Provider Attestation/Addendum Lidia, Laura Mccoy DO, attest that I was physically present for the [place] portions of the service and evaluated the patient with the resident and I reviewed and discussed the case with the resident and agree with the resident's findings and plans of care as documented above Patient seen and evaluated this AM. Patient states she is feeling overall improved. She reports pain on urination today and suprapubic pain. Will start on rocephin due to concern for UTI. Will obtain UA/ Ucx. Worsening hypernatremia noted. Will dc 1/2ns and switch to D5W, f/u sodium levels. Will order physical therapy as well due to generalized weakness. H/H remains stable.
[2024-12-23 14:27] LABS: Albumin, Serum 3.2 gm/dL (3.4-4.8); Anion Gap 10 (7-16); BUN/Creatinine Ratio 25 Ratio (12-20); Blood Urea Nitrogen 65 mg/dL (9-23); Calcium 8.2 mg/dL (8.3-10.6); Calcium (Corrected) 8.8 mg/dL (8.5-10.1); Carbon Dioxide 28.6 mMol/L (20.0-31.0); Chloride 108 mMol/L (98-107); Creatinine (Component) 2.6 mg/dL (0.6-1.3); Estimated Creatinine Clearance 17.5 mL/min (>60); Glucose 268 mg/dL (74-106); Osmolality,Calculated 320 (275-295); Phosphorous 3.1 mg/dL (2.4-5.1); Potassium 3.5 mMol/L (3.4-5.1); Sodium 147 mMol/L (136-145); eGFR 19 See Note
--- NOTE | 2024-12-23 14:36 | PC.SS ---
Rounding Note: EGD performed yesterday. PT evaluation is pending.
--- NOTE | 2024-12-23 15:48 | PC.SS ---
[employer] TECHNICIAN confirmed with patient and patient's daughter, Rakel; that discharge plan is for the patient to transition home with home health. [employer] TECHNICIAN confirmed that preferred agency is [facility].
[2024-12-23] MEDS: cefTRIAXone/D5w 1gm IV premix 1 GM/50 ML BAG IV (18:19)
[2024-12-23 18:22] LABS: Collection Type, Urine Voided
[2024-12-23 18:51] LABS: Bilirubin,Urine Negative (Negative); Blood,Urine 1+ (Negative); Clarity,Urine Clear (Clear/Hazy); Color,Urine Lt-Yellow (Lt Yel-Yel); Glucose, Urine 4+ (Negative); Ketones,Urine Negative (Negative); Leukocyte Esterase,Urine Positive (Negative); Nitrite,Urine Negative (Negative); PH,Urine 6.5 (5.0-7.0); Protein,Urine 2+ (Neg - Trace); RBC,Urine 1 /hpf (0-3); Specific Gravity,Urine 1.012 (1.001-1.035); Squamous Epithelial Cell,Urine 1 /hpf (0-5); Urobilinogen,Urine Negative mg/dL (0.0-1.0); WBC,Urine 16 /hpf (0-5)
[2024-12-23 19:19] LABS: Albumin, Serum 3.2 gm/dL (3.4-4.8); Anion Gap 10 (7-16); BUN/Creatinine Ratio 23 Ratio (12-20); Blood Urea Nitrogen 54 mg/dL (9-23); Calcium 8.5 mg/dL (8.3-10.6); Calcium (Corrected) 9.1 mg/dL (8.5-10.1); Carbon Dioxide 26.4 mMol/L (20.0-31.0); Chloride 108 mMol/L (98-107); Creatinine (Component) 2.4 mg/dL (0.6-1.3); Estimated Creatinine Clearance 18.9 mL/min (>60); Glucose 183 mg/dL (74-106); Osmolality,Calculated 306 (275-295); Phosphorous 2.7 mg/dL (2.4-5.1); Potassium 3.5 mMol/L (3.4-5.1); Sodium 144 mMol/L (136-145); eGFR 21 See Note
--- NOTE | 2024-12-23 19:44 | PD.IMPROG ---
Documentation for date of: 12/23/24 Subjective Subjective Interval history: Hemoglobin hematocrit 9.7 and 29.3 Exam Vital Signs Temp Pulse Resp BP Pulse Ox O2 Del Method O2 Flow Rate 97.4 F 65 20 170/80 H 98 Room Air 1 12/23/24 16:00 12/23/24 16:00 12/23/24 16:00 12/23/24 16:00 12/23/24 16:00 12/23/24 16:00 12/23/24 04:00 Objective Labs 12/23/24 04:48 12/23/24 18:30 Labs: Laboratory Results - last 24 hr 12/23/24 12/23/24 12/23/24 04:48 13:38 18:00 WBC 11.1 H RBC 3.42 L Hgb 9.7 L Hct 29.3 L MCV 86 MCH 28.4 MCHC 33.1 RDW Std Deviation 52.5 H Plt Count 136 L Neut % (Auto) 77 Lymph % (Auto) 14 [place] % (Auto) 8 Eos % (Auto) 0 Baso % (Auto) 0 Neut # (Auto) 8.6 H Lymph # (Auto) 1.5 [place] # (Auto) 0.9 H Eos # (Auto) 0.0 Baso # (Auto) 0.0 Immature Gran # (Auto) 0.05 H Absolute Nucleated RBC 0.00 Immature Gran % 0 Nucleated RBC % 0 Sodium 156 H 147 H Potassium 3.9 D 3.5 Chloride 115 H 108 H Carbon Dioxide 28.7 28.6 Anion Gap 12 10 BUN 82 H 65 H Creatinine 2.7 H 2.6 H Estim Creat Clear Calc 16.8 L 17.5 L eGFR 18 L 19 L BUN/Creatinine Ratio 30 H 25 H Glucose 161 H D 268 H D Calculated Osmolality 336 H 320 H Calcium 8.8 8.2 L Corrected Calcium 9.2 8.8 Phosphorus 3.6 3.1 Magnesium 2.6 Total Bilirubin 1.0 AST 34 ALT 20 Alkaline Phosphatase 54 Total Protein 4.9 L Albumin 3.5 3.2 L Globulin 1.4 L Albumin/Globulin Ratio 2.5 H Ur Collection Type Voided Urine Color Lt-Yellow Urine Clarity Clear Urine pH 6.5 Ur Specific [place] 1.012 Urine Protein 2+ A Urine Glucose (UA) 4+ A Urine Ketones Negative Urine Blood 1+ A Urine Nitrite Negative Urine Bilirubin Negative Urine Urobilinogen (Auto) Negative Ur Leukocyte Esterase Positive Urine RBC 1 Urine WBC 16 H Ur Squamous Epith Cells 1 Urine Bacteria None 12/23/24 18:30 WBC RBC Hgb Hct MCV MCH MCHC RDW Std Deviation Plt Count Neut % (Auto) Lymph % (Auto) [place] % (Auto) Eos % (Auto) Baso % (Auto) Neut # (Auto) Lymph # (Auto) [place] # (Auto) Eos # (Auto) Baso # (Auto) Immature Gran # (Auto) Absolute Nucleated RBC Immature Gran % Nucleated RBC % Sodium 144 Potassium 3.5 Chloride 108 H Carbon Dioxide 26.4 Anion Gap 10 BUN 54 H Creatinine 2.4 H Estim Creat Clear Calc 18.9 L eGFR 21 L BUN/Creatinine Ratio 23 H Glucose 183 H D Calculated Osmolality 306 H Calcium 8.5 Corrected Calcium 9.1 Phosphorus 2.7 Magnesium Total Bilirubin AST ALT Alkaline Phosphatase Total Protein Albumin 3.2 L Globulin Albumin/Globulin Ratio Ur Collection Type Urine Color Urine Clarity Urine pH Ur Specific [place] Urine Protein Urine Glucose (UA) Urine Ketones Urine Blood Urine Nitrite Urine Bilirubin Urine Urobilinogen (Auto) Ur Leukocyte Esterase Urine RBC Urine WBC Ur Squamous Epith Cells Urine Bacteria Impressions Impression: Diffuse gastritis gastric polyp anemia blood loss Continue current management ABG Interpretation ABG results: 12/21/24 12/21/24 12/21/24 08:59 18:46 21:36 ABG pH 7.30 L 7.23 L ABG pCO2 38 36 ABG pO2 93 278 H D ABG HCO3 19 L 15 L ABG O2 Saturation 97 100 H ABG Base Excess -7 L -12 L VBG pH 7.35 VBG pCO2 34 L VBG pO2 97 H VBG Base Excess -6 L 12/22/24 07:17 ABG pH 7.43 D ABG pCO2 37 ABG pO2 63 L D ABG HCO3 25 ABG O2 Saturation 94 ABG Base Excess 0 VBG pH VBG pCO2 VBG pO2 VBG Base Excess Assessment & Plan A&P Narrative # Hematemesis etiology uncertain plan Patient's daughters were in the room [place] interpretation was done by the nursing staff and consent obtained for fiberoptic esophagogastroduodenoscopy with possible biopsy possible therapeutic intervention scheduled for tomorrow Continue IV Protonix Serial CBC Will follow the patient Other medical problems include Coronary artery disease status post myocardial infarction status post PTCA to the LAD Essential hypertension Hyperlipidemia Diabetes mellitus type 2 DANIAL renal function improving Thank you very much for the opportunity to participate in the care of this patient Time Spent With Patient Time: Total time spent is greater than 50% in coordination of care (as documented) at patient's floor/unit and/or counseling patient:
[2024-12-23] MEDS: ATORVASTATIN CALCIUM 20 MG TABLET 80 MG PO (21:15)
[2024-12-24] VITALS (13 sets, daily range): BP systolic 89–178; BP diastolic 51–95; PULSE 57–79; RESP 15–20; TEMP 36.2–36.6; O2SAT 93–96; BMI 24.3
[2024-12-24] MEDS: HYDROcodone/APAP 5/325 TABLET 1 TAB PO (00:53)
[2024-12-24] MEDS: ONDANSETRON INJ 2 MG/ML INJ 2 ML 4 MG IVP (04:19)
[2024-12-24] MEDS: hydrALAZINE INJ 20 MG/ML VIAL 10 MG IVP (05:13)
[2024-12-24 06:04] LABS: Basophils # (Auto) 0.0 Thou/mm3 (0.0-0.2); Basophils % (Auto) 0 % (0-2.5); Eosinophils # (Auto) 0.1 Thou/mm3 (0.0-0.5); Eosinophils % (Auto) 1 % (0-10); Hematocrit 29.6 % (36.0-46.0); Hemoglobin 9.6 g/dL (12.0-16.0); Immature Granulocytes Auto 0.05 Thou/mm3 (0.00-0.00); Lymphocytes # (Auto) 1.4 Thou/mm3 (1.0-4.8); Lymphocytes % (Auto) 14 % (10-50); Mean Corpuscular HGB Conc 32.4 g/dl (31.0-37.0); Mean Corpuscular Hemoglobin 28.5 pg (25.0-35.0); Mean Corpuscular Volume 88 fL (80-100); Monocytes # (Auto) 0.8 Thou/mm3 (0.0-0.8); Monocytes % (Auto) 8 % (0-12); Neutrophils # (Auto) 8.0 Thou/mm3 (1.8-7.7); Neutrophils % (Auto) 77 % (37-80); Nucleated Red Blood Cell # 0.00 Thou/mm3 (0.00-0.00); Nucleated Red Blood Cell % 0 /100 WBC (0); Platelet Count 131 Thou/mm3 (140-440); RDW Standard Deviation 52.1 fL (36.4-46.3); Red Blood Count 3.37 Miln/mm3 (4.00-5.20); White Blood Count 10.5 Thou/mm3 (3.6-11.0)
[2024-12-24 06:39] LABS: Alanine Aminotransferase 20 U/L (10-49); Albumin, Serum 3.5 gm/dL (3.4-4.8); Albumin/Globulin Ratio 2.7 (1.2-2.2); Alkaline Phosphatase 56 U/L (46-116); Anion Gap 11 (7-16); Aspartate Amino Transferase 40 U/L (0-34); BUN/Creatinine Ratio 22 Ratio (12-20); Bilirubin,Total 0.9 mg/dL (0.3-1.2); Blood Urea Nitrogen 54 mg/dL (9-23); Calcium 8.6 mg/dL (8.3-10.6); Calcium (Corrected) 9.0 mg/dL (8.5-10.1); Carbon Dioxide 27.5 mMol/L (20.0-31.0); Chloride 108 mMol/L (98-107); Creatinine (Component) 2.5 mg/dL (0.6-1.3); Estimated Creatinine Clearance 16.1 mL/min (>60); Globulin 1.3 gm/dL (2.3-3.5); Glucose 152 mg/dL (74-106); Magnesium 2.0 mg/dL (1.6-2.6); Osmolality,Calculated 308 (275-295); Phosphorous 3.4 mg/dL (2.4-5.1); Potassium 3.9 mMol/L (3.4-5.1); Sodium 146 mMol/L (136-145); Total Protein 4.8 gm/dL (5.7-8.2); eGFR 20 See Note
[2024-12-24] MEDS: INSULIN LISPRO (AdmeLOG) 1 UNIT/0.01 ML UNIT SC ×3 (08:17→17:19)
[2024-12-24] MEDS: INSULIN DEGLUDEC 5 UNIT/0.05 ML (PER 5 UNITS) 10 UNIT SC (08:18)
[2024-12-24] MEDS: METOPROLOL TARTRATE 25 MG TABLET PO (08:18)
[2024-12-24] MEDS: NIFEdipine XL 30 MG TABCR PO (08:18)
--- NOTE | 2024-12-24 10:41 | ESPR_ITS ---
Documentation for date of: 12/24/24 Subjective Subjective Interval history: Reason for consult: DANIAL History of present illness: Ms Granda is a 74-year-old female with past medical history of type 2 diabetes mellitus, hypertension, hyperlipidemia, coronary artery disease status post stent, and CKD, who presented on 12/21/2024 with hematemesis. She reported one episode of bright red blood in vomitus in the morning followed by another episode in the ED. She denied melena, hematochezia, abdominal pain, or NSAID use, and takes only daily aspirin. No prior history of GI bleed, cirrhosis, or alcohol use. In the ED, her hemoglobin was 8.9 (baseline 9?10), BUN 106, creatinine 3.1 (baseline ~2.0), and potassium 5.2. She received 1 unit PRBC and 1 L normal saline. GI was consulted and recommended PPI infusion and EGD. CT abdomen/pelvis was suggestive of gastritis with splenomegaly. Patient denies flank pain, dysuria, or decreased urine output. No recent contrast exposure or nephrotoxin use reported. Nephrology was consulted for acute kidney injury on chronic kidney disease. 12/22/2024: Patient seen resting comfortably in bed. No acute complaints. Denies chest pain, dyspnea, or abdominal pain. Reports no nausea, vomiting, or further hematemesis since this morning. Awaiting EGD today. Labs: WBC 9.8, Hgb 10.1, Hct 29.9, Plt 119, Na 140, K 4.7, Cl 112, CO2 24.2, BUN 105, Cr 2.8 (from 3.1), GFR 17, Glu 310, Ca 9.1, Phos 3.2, Mg 1.5. UA negative. ABG: pH 7.43, pCO2 37, PaO2 63, HCO3 25. 12/23/2024: Seen today, patient doing well with no complaints. Resting comfortably in bed. Lungs are clear, no shortness of breath or chest pain. Labs: WBC 11.1, Hgb 9.7, Hct 29.3, Plt 136, Na 156 (yesterday 155), K 3.9, Cl 115, CO2 28.7, BUN 82 (from 105 yesterday), Cr 2.7 (from 2.8 yesterday), Glucose 161, Calculated Osmolality 336, Ca 9.2, Phos 3.6, Mg 2.6 12/24/2024: Patient seen today, resting comfortably with no new complaints. No overnight events. Family was at bedside and informed that nephrology will be signing off on the case. Labs: WBC 10.5, Hgb 9.6, Hct 29.6, Plt 131, Na 146, K 3.9, Cl 108, CO2 27.5, BUN 54, Cr 2.5, GFR 20, Ca 9, Phos 3.4, Mg 2.0 Exam Vital Signs Temp Pulse Resp BP Pulse Ox O2 Del Method O2 Flow Rate 97.2 F 70 17 158/84 H 96 Nasal Cannula 1 12/24/24 08:00 12/24/24 08:18 12/24/24 08:00 12/24/24 08:18 12/24/24 08:00 12/24/24 08:00 12/24/24 08:00 Narrative Exam General: A/O x3, no acute distress, well-nourished, well-developed Eyes: PERRL, EOMI. Anicteric, vision grossly intact. Ears: No ear pain, no ear discharge, Hearing grossly intact. Nose: No nasal discharge. Mouth/Throat: Moist mucous membranes, no redness, no lesions. Neck: Neck supple, non-tender, no cervical lymphadenopathy. Lungs: Clear ANGELICA to auscultation and percussion, No accessory muscle use. Cardio: Normal S1/S2, regular rhythm, no murmurs, no JVD or carotid bruits. Abdomen: Soft, suprapubic tender, no palpable masses, peristalsis present, no guarding or rebound. Extremities: Symmetrical, no significant deformities, no peripheral edema , non-tender, peripheral pulses present. Skin: No rashes, no lesions, warm to touch. Neuro: No focal neurological deficits. motor and sensory intact Psych: Cooperative, appropriate mood and effect. Objective Labs 12/25/24 05:32 12/25/24 05:32 Labs: Laboratory Results - last 24 hr 12/23/24 12/23/24 12/23/24 13:38 18:00 18:30 WBC RBC Hgb Hct MCV MCH MCHC RDW Std Deviation Plt Count Neut % (Auto) Lymph % (Auto) [place] % (Auto) Eos % (Auto) Baso % (Auto) Neut # (Auto) Lymph # (Auto) [place] # (Auto) Eos # (Auto) Baso # (Auto) Immature Gran # (Auto) Absolute Nucleated RBC Immature Gran % Nucleated RBC % Sodium 147 H 144 Potassium 3.5 3.5 Chloride 108 H 108 H Carbon Dioxide 28.6 26.4 Anion Gap 10 10 BUN 65 H 54 H Creatinine 2.6 H 2.4 H Estim Creat Clear Calc 17.5 L 18.9 L eGFR 19 L 21 L BUN/Creatinine Ratio 25 H 23 H Glucose 268 H D 183 H D Calculated Osmolality 320 H 306 H Calcium 8.2 L 8.5 Corrected Calcium 8.8 9.1 Phosphorus 3.1 2.7 Magnesium Total Bilirubin AST ALT Alkaline Phosphatase Total Protein Albumin 3.2 L 3.2 L Globulin Albumin/Globulin Ratio Ur Collection Type Voided Urine Color Lt-Yellow Urine Clarity Clear Urine pH 6.5 Ur Specific [place] 1.012 Urine Protein 2+ A Urine Glucose (UA) 4+ A Urine Ketones Negative Urine Blood 1+ A Urine Nitrite Negative Urine Bilirubin Negative Urine Urobilinogen (Auto) Negative Ur Leukocyte Esterase Positive Urine RBC 1 Urine WBC 16 H Ur Squamous Epith Cells 1 Urine Bacteria None 12/24/24 04:46 WBC 10.5 RBC 3.37 L Hgb 9.6 L Hct 29.6 L MCV 88 MCH 28.5 MCHC 32.4 RDW Std Deviation 52.1 H Plt Count 131 L Neut % (Auto) 77 Lymph % (Auto) 14 [place] % (Auto) 8 Eos % (Auto) 1 Baso % (Auto) 0 Neut # (Auto) 8.0 H Lymph # (Auto) 1.4 [place] # (Auto) 0.8 Eos # (Auto) 0.1 Baso # (Auto) 0.0 Immature Gran # (Auto) 0.05 H Absolute Nucleated RBC 0.00 Immature Gran % 1 H Nucleated RBC % 0 Sodium 146 H Potassium 3.9 Chloride 108 H Carbon Dioxide 27.5 Anion Gap 11 BUN 54 H Creatinine 2.5 H Estim Creat Clear Calc 16.1 L eGFR 20 L BUN/Creatinine Ratio 22 H Glucose 152 H Calculated Osmolality 308 H Calcium 8.6 Corrected Calcium 9.0 Phosphorus 3.4 Magnesium 2.0 Total Bilirubin 0.9 AST 40 H ALT 20 Alkaline Phosphatase 56 Total Protein 4.8 L Albumin 3.5 Globulin 1.3 L Albumin/Globulin Ratio 2.7 H Ur Collection Type Urine Color Urine Clarity Urine pH Ur Specific [place] Urine Protein Urine Glucose (UA) Urine Ketones Urine Blood Urine Nitrite Urine Bilirubin Urine Urobilinogen (Auto) Ur Leukocyte Esterase Urine RBC Urine WBC Ur Squamous Epith Cells Urine Bacteria ABG Interpretation ABG results: 12/21/24 12/21/24 12/21/24 08:59 18:46 21:36 ABG pH 7.30 L 7.23 L ABG pCO2 38 36 ABG pO2 93 278 H D ABG HCO3 19 L 15 L ABG O2 Saturation 97 100 H ABG Base Excess -7 L -12 L VBG pH 7.35 VBG pCO2 34 L VBG pO2 97 H VBG Base Excess -6 L 12/22/24 07:17 ABG pH 7.43 D ABG pCO2 37 ABG pO2 63 L D ABG HCO3 25 ABG O2 Saturation 94 ABG Base Excess 0 VBG pH VBG pCO2 VBG pO2 VBG Base Excess Quality Measures Quality Measures VTE prophylaxis Advance care planning discussed with:: patient and child Assessment & Plan Assessment Current Active Medications: Generic Name Dose Route Start Last Admin Trade Name Freq PRN Reason Stop Dose Admin Acetaminophen 650 mg 12/21/24 12:10 Acetaminophen 325 Mg Tablet PO 01/20/25 12:09 Q6H PRN Fever >101.5 Acetaminophen 650 mg 12/21/24 12:10 12/22/24 13:52 Acetaminophen 325 Mg Tablet PO 01/20/25 12:09 650 mg Q6H PRN Administration PAIN SCALE 1-3 (mild Hydrocodone Bitart/Acetaminophen 1 tab 12/21/24 12:10 12/24/24 00:53 Hydrocodone/Apap 5/325 Tablet PO 12/26/24 12:09 1 tab Q4HR PRN Administration PAIN SCALE 4-6 (Moderate Atorvastatin Calcium 80 mg 12/23/24 21:00 12/23/24 21:15 Atorvastatin Calcium 20 Mg Tablet PO 01/22/25 20:59 80 mg HS MAYCO Administration Dextrose 25 ml 12/21/24 12:37 Dextrose 50%-Water Inj 50 Ml Syringe IV 01/20/25 12:36 Q15MIN PRN BG 50-70 responsive npo pt Dextrose 50 ml 12/21/24 12:37 Dextrose 50%-Water Inj 50 Ml Syringe IV 01/20/25 12:36 Q15MIN PRN BG <50 OR BG <70 & pt unresponsive Glucagon 1 mg 12/21/24 12:37 Glucagon Inj 1 Mg Vial IM Q15MIN PRN BG <70, and no IV access Hydralazine HCl 25 mg 12/24/24 08:00 12/24/24 08:18 Hydralazine Hcl 25 Mg Tablet PO 01/23/25 07:59 25 mg TID MAYCO Administration Ceftriaxone Sodium/Dextrose 1 gm in 50 mls @ 100 mls/hr 12/23/24 14:30 12/23/24 18:19 Rocephin/D5w 1gm Iv Premix IV 12/30/24 14:29 100 mls/hr QDAY@1400 MAYCO Administration Insulin Degludec 10 unit 12/22/24 09:00 12/24/24 08:18 Insulin Degludec 5 Unit/0.05 Ml (Per 5 Units) SC 01/21/25 08:59 10 unit QDAY MAYCO Administration Insulin Human Lispro 0 unit 12/23/24 07:30 12/24/24 08:17 Insulin Lispro (Admelog) 1 Unit/0.01 Ml Unit SC 01/22/25 07:29 1 unit ACHS MAYCO Administration Protocol Metoprolol Succinate 25 mg 12/25/24 21:00 Metoprolol Succinate Xl 25 Mg Tabcr PO 01/24/25 20:59 QDAY MAYCO Nifedipine 30 mg 12/24/24 08:15 12/24/24 08:18 Nifedipine Xl 30 Mg Tabcr PO 01/23/25 08:14 30 mg QDAY MAYCO Administration Ondansetron HCl 4 mg 12/21/24 12:10 12/24/24 04:19 Ondansetron Inj 2 Mg/Ml Inj 2 Ml IVP 01/20/25 12:09 4 mg Q6H PRN Administration NAUSEA OR VOMITING Protocol Pantoprazole Sodium 40 mg 12/22/24 09:00 12/24/24 08:17 Pantoprazole Inj 40 Mg Vial IVP 01/21/25 08:59 40 mg Q12HR MAYCO Administration Plan 74-year-old female with a history of CKD, hypertension, and recent GI bleed, now with stable renal function (creatinine returned to baseline), improving electrolyte status, and controlled blood pressure after hydralazine initiation. Nephrology will sign off on the case today. # DANIAL on CKD Likely pre-renal azotemia from volume depletion secondary to GI bleed Improvement in renal function (Cr 2.5 from 2.8), stable volume status with continued fluid management. No evidence of obstruction or intrinsic renal process. Plan: * Patient?s creatinine is now back to baseline (2.5). * BUN remains elevated but improved, most likely due to the underlying GI bleed. * No further indication for nephrology intervention at this time. * Nephrology will sign off after today?s review. # Hypernatremia (improving) Sodium trended up from 151 -> 150-> 156-> 146 Likely dehydration-related. Plan: * Encourage patient to increase fluid intake. * Sodium goal 145. Other active problems: # GI bleed, hematemesis # DM2 # HTN # CAD # HLD Management per primary team ----- Plan discussed with attending physician Dr. Manjit Fish MD PGY-1 Internal Medicine Attending Provider Attestation/Addendum Patient seen and examined with resident physician Dr. Fish. Note reviewed, agree with findings and recommendations. Patient currently seen in telemetry. Family at bedside. Noted orthostatic hypotension with high blood pressure. Spoke to Dr. Mccoy out of bed to chair today and medications adjusted. Kidney function seems to be stable. Renal gauthier discharge in a.m. if blood pressure stable
--- NOTE | 2024-12-24 12:50 | ESPR_ITS ---
<Statement entered by Tobias Stallworth MD - 12/24/24 14:13> I have reviewed the note and agree with the resident's assessment & plan with exceptions as below. I have personally reviewed labs, imaging, home meds/prior records, examined the patient, formulated and discussed management plan with my attending Patient was seen and examined at bedside this morning. No acute overnight events. Patient was previously hypertensive to all the whole night and today morning therefore started patient on hydralazine 25 mg 3 times daily. Patient also got nifedipine 30 mg x 1. Overnight, hydralazine 10 mg IV x1. Did orthostatic vitals on the patient which were positive. Her UA was negative for bacteria and only positive for leukocytes esterase therefore we will continue with Rocephin for now. Will get an echo to address pericardial effusions seen on CT. Tobias Stallworth PGY2 Disclaimer: Even though this this note was dictated by speech recognition and even though it was carefully revised there may still be minor errors in steward/stewardess second class due to voice recognition software. Documentation for date of: 12/24/24 Subjective Subjective Interval history: Patient was seen and examined at bedside; no acute events overnight. Patient hypertensive up to 178/95 overnight. Orthostatic vitals positive (Lying 122/62, Standing 89/51). UA positive for WBCs 16. Sodium improved from 156 to 146. Exam Vital Signs Temp Pulse Resp BP Pulse Ox O2 Del Method O2 Flow Rate 97.2 F 70 17 158/84 H 96 Nasal Cannula 1 12/24/24 08:00 12/24/24 08:18 12/24/24 08:00 12/24/24 08:18 12/24/24 08:00 12/24/24 08:00 12/24/24 08:00 Narrative Exam General: A/O x3, no acute distress, well-nourished, well-developed Eyes: PERRL, EOMI. Anicteric, vision grossly intact. Ears: No ear pain, no ear discharge, Hearing grossly intact. Nose: No nasal discharge. Mouth/Throat: Moist mucous membranes, no redness, no lesions. Neck: Neck supple, non-tender, no cervical lymphadenopathy. Lungs: Clear ANGELICA to auscultation and percussion, No accessory muscle use. Cardio: Normal S1/S2, regular rhythm, no murmurs, no JVD or carotid bruits. Abdomen: Soft, suprapubic and lower abdominal tenderness, no palpable masses, peristalsis present, no guarding or rebound. Extremities: Symmetrical, no significant deformities, no peripheral edema , non-tender, peripheral pulses present. Skin: No rashes, no lesions, warm to touch. Neuro: No focal neurological deficits. motor and sensory intact Psych: Cooperative, appropriate mood and effect. Objective Labs 12/24/24 04:46 12/24/24 17:48 Labs: Laboratory Results - last 24 hr 12/23/24 12/23/24 12/23/24 13:38 18:00 18:30 WBC RBC Hgb Hct MCV MCH MCHC RDW Std Deviation Plt Count Neut % (Auto) Lymph % (Auto) [place] % (Auto) Eos % (Auto) Baso % (Auto) Neut # (Auto) Lymph # (Auto) [place] # (Auto) Eos # (Auto) Baso # (Auto) Immature Gran # (Auto) Absolute Nucleated RBC Immature Gran % Nucleated RBC % Sodium 147 H 144 Potassium 3.5 3.5 Chloride 108 H 108 H Carbon Dioxide 28.6 26.4 Anion Gap 10 10 BUN 65 H 54 H Creatinine 2.6 H 2.4 H Estim Creat Clear Calc 17.5 L 18.9 L eGFR 19 L 21 L BUN/Creatinine Ratio 25 H 23 H Glucose 268 H D 183 H D Calculated Osmolality 320 H 306 H Calcium 8.2 L 8.5 Corrected Calcium 8.8 9.1 Phosphorus 3.1 2.7 Magnesium Total Bilirubin AST ALT Alkaline Phosphatase Total Protein Albumin 3.2 L 3.2 L Globulin Albumin/Globulin Ratio Ur Collection Type Voided Urine Color Lt-Yellow Urine Clarity Clear Urine pH 6.5 Ur Specific [place] 1.012 Urine Protein 2+ A Urine Glucose (UA) 4+ A Urine Ketones Negative Urine Blood 1+ A Urine Nitrite Negative Urine Bilirubin Negative Urine Urobilinogen (Auto) Negative Ur Leukocyte Esterase Positive Urine RBC 1 Urine WBC 16 H Ur Squamous Epith Cells 1 Urine Bacteria None 12/24/24 04:46 WBC 10.5 RBC 3.37 L Hgb 9.6 L Hct 29.6 L MCV 88 MCH 28.5 MCHC 32.4 RDW Std Deviation 52.1 H Plt Count 131 L Neut % (Auto) 77 Lymph % (Auto) 14 [place] % (Auto) 8 Eos % (Auto) 1 Baso % (Auto) 0 Neut # (Auto) 8.0 H Lymph # (Auto) 1.4 [place] # (Auto) 0.8 Eos # (Auto) 0.1 Baso # (Auto) 0.0 Immature Gran # (Auto) 0.05 H Absolute Nucleated RBC 0.00 Immature Gran % 1 H Nucleated RBC % 0 Sodium 146 H Potassium 3.9 Chloride 108 H Carbon Dioxide 27.5 Anion Gap 11 BUN 54 H Creatinine 2.5 H Estim Creat Clear Calc 16.1 L eGFR 20 L BUN/Creatinine Ratio 22 H Glucose 152 H Calculated Osmolality 308 H Calcium 8.6 Corrected Calcium 9.0 Phosphorus 3.4 Magnesium 2.0 Total Bilirubin 0.9 AST 40 H ALT 20 Alkaline Phosphatase 56 Total Protein 4.8 L Albumin 3.5 Globulin 1.3 L Albumin/Globulin Ratio 2.7 H Ur Collection Type Urine Color Urine Clarity Urine pH Ur Specific [place] Urine Protein Urine Glucose (UA) Urine Ketones Urine Blood Urine Nitrite Urine Bilirubin Urine Urobilinogen (Auto) Ur Leukocyte Esterase Urine RBC Urine WBC Ur Squamous Epith Cells Urine Bacteria ABG Interpretation ABG results: 12/21/24 12/21/24 12/21/24 08:59 18:46 21:36 ABG pH 7.30 L 7.23 L ABG pCO2 38 36 ABG pO2 93 278 H D ABG HCO3 19 L 15 L ABG O2 Saturation 97 100 H ABG Base Excess -7 L -12 L VBG pH 7.35 VBG pCO2 34 L VBG pO2 97 H VBG Base Excess -6 L 12/22/24 07:17 ABG pH 7.43 D ABG pCO2 37 ABG pO2 63 L D ABG HCO3 25 ABG O2 Saturation 94 ABG Base Excess 0 VBG pH VBG pCO2 VBG pO2 VBG Base Excess Quality Measures Quality Measures VTE prophylaxis Advance care planning discussed with:: other Assessment & Plan Assessment Current Active Medications: Generic Name Dose Route Start Last Admin Trade Name Freq PRN Reason Stop Dose Admin Acetaminophen 650 mg 12/21/24 12:10 Acetaminophen 325 Mg Tablet PO 01/20/25 12:09 Q6H PRN Fever >101.5 Acetaminophen 650 mg 12/21/24 12:10 12/22/24 13:52 Acetaminophen 325 Mg Tablet PO 01/20/25 12:09 650 mg Q6H PRN Administration PAIN SCALE 1-3 (mild Hydrocodone Bitart/Acetaminophen 1 tab 12/21/24 12:10 12/24/24 00:53 Hydrocodone/Apap 5/325 Tablet PO 12/26/24 12:09 1 tab Q4HR PRN Administration PAIN SCALE 4-6 (Moderate Atorvastatin Calcium 80 mg 12/23/24 21:00 12/23/24 21:15 Atorvastatin Calcium 20 Mg Tablet PO 01/22/25 20:59 80 mg HS MAYCO Administration Dextrose 25 ml 12/21/24 12:37 Dextrose 50%-Water Inj 50 Ml Syringe IV 01/20/25 12:36 Q15MIN PRN BG 50-70 responsive npo pt Dextrose 50 ml 12/21/24 12:37 Dextrose 50%-Water Inj 50 Ml Syringe IV 01/20/25 12:36 Q15MIN PRN BG <50 OR BG <70 & pt unresponsive Glucagon 1 mg 12/21/24 12:37 Glucagon Inj 1 Mg Vial IM Q15MIN PRN BG <70, and no IV access Hydralazine HCl 25 mg 12/24/24 08:00 12/24/24 08:18 Hydralazine Hcl 25 Mg Tablet PO 01/23/25 07:59 25 mg TID MAYCO Administration Ceftriaxone Sodium/Dextrose 1 gm in 50 mls @ 100 mls/hr 12/23/24 14:30 12/23/24 18:19 Rocephin/D5w 1gm Iv Premix IV 12/30/24 14:29 100 mls/hr QDAY@1400 MAYCO Administration Insulin Degludec 10 unit 12/22/24 09:00 12/24/24 08:18 Insulin Degludec 5 Unit/0.05 Ml (Per 5 Units) SC 01/21/25 08:59 10 unit QDAY MAYCO Administration Insulin Human Lispro 0 unit 12/23/24 07:30 12/24/24 11:51 Insulin Lispro (Admelog) 1 Unit/0.01 Ml Unit SC 01/22/25 07:29 1 unit ACHS MAYCO Administration Protocol Metoprolol Succinate 25 mg 12/25/24 21:00 Metoprolol Succinate Xl 25 Mg Tabcr PO 01/24/25 20:59 QDAY MAYCO Ondansetron HCl 4 mg 12/21/24 12:10 12/24/24 04:19 Ondansetron Inj 2 Mg/Ml Inj 2 Ml IVP 01/20/25 12:09 4 mg Q6H PRN Administration NAUSEA OR VOMITING Protocol Pantoprazole Sodium 40 mg 12/22/24 09:00 12/24/24 08:17 Pantoprazole Inj 40 Mg Vial IVP 01/21/25 08:59 40 mg Q12HR MAYCO Administration Plan 74 yo F with PMH of DM, HTN, HLD, CAD with stent, gout presenting to the ED on 12/21/24 for hematemesis; patient admitted on 12/21/24 for management of GI bleed. #hemorrhagic gastritis #Hematemesis #Acute blood loss anemia Patient states that she had a hematemesis episode 12/21/24 a.m., has never had this before, had another hematemesis episode in the ED; patient has no history of alcohol use disorder or cirrhosis. Hgb on admission is 8.9; previous baseline is 9-10. CT head negative for mass, hemorrhage, or midline shift; CT abdomen pelvis suspicious for gastritis, splenomegaly, no appendicitis or colitis. Patient received 3 units pRBCs during and after 12/21/24 rapid, which had hematemesis and melena; hgb 12/24/24 9.6 EGD showed hemorraghic gastritis and polyp in the fundic portion of the stomach. Plan: GI on board Protonix 40 twice daily Will transfuse if Hgb less than 8 #Pericardial effusion 15mm pericardial effusion seen on CT A/P Plan: Echo ordered #DANIAL on [id number] Patient baseline around 1.7-2.0; creatinine on admission is 3.1, creatinine today 2.5 Plan: Avoid nephrotoxic agents renally dose meds #Hyperkalemia, resolved #Hypernatremia patient had K of 5.2 on admission; received calcium gluconate in ED. Sodium has improved from 156 to 146 this morning. Plan: Follow up CBC in AM #HTN BP hypertensive overnight, with 178/95 max. Plan: Hydralazine 25 PO TID daily #Dysuria Patient complaining of dysuria and suprapubic tenderness UA positive for WBCs 16 and leukocyte esterase but no bacteria. Plan: Rocephin 1 g qday #DM #HLD #CAD #Gout Patient takes atorvastatin, allopurinol, Farxiga, metoprolol, Jardiance at home. Plan: Insulin degludec 10 plus sliding scale Restarted metoprolol succinate 25 mg qday and atorvastatin 80 qday, Disposition: Tele DVT prophylaxis: SCD GI prophylaxis: protonix 40 BID Diet: PUD Lines: PIV CODE STATUS: Full This case was discussed with my attending physician, Dr. Mccoy, and senior resident, Dr. Guy. Stephan Victoria MD-PhD, PGY1 Attending Provider Attestation/Addendum I, Laura Mccoy, DO, attest that I was physically present for the pinedo portions of the service and evaluated the patient with the resident and I reviewed and discussed the case with the resident and agree with the resident's findings and plans of care as documented above Patient seen and evaluated this AM. She continues to complain of lower abdominal pain. Noted to have urinary retention with about 800cc on bladder scan and 200cc of urine post void. Will straight cath if patient continues to retain urine. Orthostatics were also noted to be positive as she complains of dizziness on standing. Continue with metoprolol and hydralazine as per nephro recommendations. Patient did receive nifedipine this AM due to hypertensive urgency. Encourage patient to sit up, OOB to chair.
--- NOTE | 2024-12-24 14:07 | ECHO_ITS ---
Patient Info Name: Cara Granda Age: 74 years : 1950 Gender: Female Ht: 160 cm Wt: 62 kg BSA: 1.67 m2 BP: 130 / 72 mmHg Exam Date: 12/25/2024 9:33 AM Admit Date: 12/21/2024 Site: [facility] Room Number: [id number] Patient Status: I Exam Type: CA echo doppler complete Fish Smoker: Marlen Palacio Ordering Physician: Tobias Stallworth Study Info Indications Pleural effusion - Primary Location: [id number] Left Ventricular Outflow Tract Name Value Normal LVOT 2D LVOT Diameter 1.9 cm LVOT Doppler LVOT Peak Velocity 105 cm/s LVOT Mean Gradient 2 mmHg LVOT VTI 28 cm LVOT VTI/AV VTI Ratio 0.9 LVOT Stroke Volume 80 ml Pulmonic Valve Name Value Normal PV Doppler PV Peak Velocity 110 cm/s Mitral Valve Name Value Normal MV Doppler MV Decel [place] 274 cm/s2 MV PHT 40 ms MV Area (PHT) 5.5 cm2 4.0-5.0 MV Diastolic Function MV E Peak Velocity 38 cm/s MV A Peak Velocity 77 cm/s MV E/A 0.5 MV Annular TDI MV Septal e' Velocity 5.0 cm/s MV E/e' (Septal) 7.5 MV Lateral e' Velocity 5.3 cm/s MV E/e' (Lateral) 7.1 MV e' Average 5.17 cm/s MV E/e' (Average) 7.3 Tricuspid Valve Name Value Normal TV Regurgitation Doppler TR Peak Velocity 246 cm/s Estimated PAP/RSVP RA Pressure 3 mmHg <=5 PA Systolic Pressure 27 mmHg <36 RV Systolic Pressure 27 mmHg <36 Aortic Valve Name Value Normal AV 2D/MM AV Cusp Sep (MM) 1.1 cm AV Doppler AV Peak Velocity 147 cm/s AV Mean Gradient 5 mmHg AV VTI 31 cm AV Area (Cont Eq VTI) 2.6 cm2 >=3.0 AV Area (Cont Eq Jay) 2.0 cm2 AV DI (Jay) 0.71 AV Regurgitation 2D LVOT Area 2.8 cm2 Ventricles Name Value Normal LV Dimensions 2D/MM IVS Diastolic Thickness (2D) 0.9 cm 0.6-0.9 LVID Diastole (2D) 4.6 cm 3.8-5.2 LVIW Diastolic Thickness (2D) 1.2 cm 0.6-0.9 LVID Systole (2D) 2.7 cm 2.2-3.5 LVOT Diameter 1.9 cm LV Mass (2D Cubed) 169.85 g 67.00-162.00 LV Mass Index (2D Cubed) 102 g/m2 43-95 Relative Wall Thickness (2D) 0.52 <=0.42 IVS/LVIW Diastolic Thickness (2D) 0.75 0.00-1.50 LV Fractional Shortening/Ejection Fraction 2D/MM LV Fractional Shortening (2D) 41 % 27-45 LV EF (2D Teichholz) 72 % Atria Name Value Normal LA Dimensions LA Volume (4C A-L) 51 ml LA Volume (BP A-L) 45 ml Left Ventricle Left ventricular chamber dimension is normal. Left ventricular systolic function is normal with visually estimated ejection fraction of 55-60%. There is mild concentric hypertrophy noted in the left ventricle. Left ventricular segmental wall motion is normal. There is grade I diastolic dysfunction in the left ventricle. Right Ventricle Right ventricular chamber dimension is normal. Right ventricular systolic function is normal. Left Atrium Left atrial chamber dimension is severely enlarged. Right Atrium Right atrial chamber dimension is normal. Aortic Valve The aortic valve is trileaflet. There is no aortic valve sclerosis. There is no aortic valve stenosis with a peak velocity of 147 cm/s, mean gradient of 5 mmHg, and aortic valve area of 2.6 cm2. There is mild aortic valve regurgitation. Pulmonic Valve The pulmonic valve is normal. There is no pulmonic valve stenosis. There is trace pulmonic regurgitation. Mitral Valve The mitral valve has normal leaflets. There is no mitral valve stenosis. There is mild mitral valve regurgitation. Tricuspid Valve The tricuspid valve leaflets are normal. There is no tricuspid valve stenosis. There is trace tricuspid valve regurgitation. No pulmonary hypertension, estimated pulmonary arterial systolic pressure is 27 mmHg and systemic blood pressure of 130 mmHg in systole. Pericardium/Pleural The pericardium appears normal. There is small pericardial effusion with no tamponade. No pleural effusion visualized. Inferior Vena Cava Normal inferior vena cava with >50% collapse upon inspiration consistent with normal right atrial pressure, 3 mmHg. Aorta The aortic measurements are indexed to age and body surface area. The aortic root at the sinus of Valsalva is not well visualized. The prox ascending aorta is not well visualized. Summary 1. Left ventricle size is normal and systolic function is normal. Visually estimated ejection fraction is 55-60%. There is grade I diastolic dysfunction.There is mild concentric hypertrophy noted. 2. Right ventricle size is normal and systolic function is normal. 3. There is mild aortic valve regurgitation. 4. There is mild mitral valve regurgitation. 5. There is trace tricuspid valve regurgitation. 6. The left atrium is severely enlarged. The right atrium is normal. 7. Normal IVC with estimated RA pressure 3 mmHg. 8. There is small pericardial effusion with no tamponade. Report Signatures Finalized by Pancho Horner on 12/29/2024 01:57 PM
--- NOTE | 2024-12-24 14:47 | PC.SS ---
Rounding Note: Continue to address patient's blood pressure. Possible d/c tomorrow.
[2024-12-24] MEDS: cefTRIAXone/D5w 1gm IV premix 1 GM/50 ML BAG IV (14:53)
[2024-12-24 18:09] LABS: Sodium 144 mMol/L (136-145)
--- NOTE | 2024-12-24 20:37 | ESPR_ITS ---
Documentation for date of: 12/24/24 Subjective Subjective Interval history: Hemoglobin hematocrit 9.6 and 29.6 Exam Vital Signs Temp Pulse Resp BP Pulse Ox O2 Del Method O2 Flow Rate 97.8 F 68 17 115/73 96 Nasal Cannula 2 12/24/24 18:40 12/24/24 18:40 12/24/24 18:40 12/24/24 18:40 12/24/24 18:40 12/24/24 18:40 12/24/24 18:40 Objective Labs 12/24/24 04:46 12/24/24 17:48 Labs: Laboratory Results - last 24 hr 12/24/24 12/24/24 04:46 17:48 WBC 10.5 RBC 3.37 L Hgb 9.6 L Hct 29.6 L MCV 88 MCH 28.5 MCHC 32.4 RDW Std Deviation 52.1 H Plt Count 131 L Neut % (Auto) 77 Lymph % (Auto) 14 [place] % (Auto) 8 Eos % (Auto) 1 Baso % (Auto) 0 Neut # (Auto) 8.0 H Lymph # (Auto) 1.4 [place] # (Auto) 0.8 Eos # (Auto) 0.1 Baso # (Auto) 0.0 Immature Gran # (Auto) 0.05 H Absolute Nucleated RBC 0.00 Immature Gran % 1 H Nucleated RBC % 0 Sodium 146 H 144 Potassium 3.9 Chloride 108 H Carbon Dioxide 27.5 Anion Gap 11 BUN 54 H Creatinine 2.5 H Estim Creat Clear Calc 16.1 L eGFR 20 L BUN/Creatinine Ratio 22 H Glucose 152 H Calculated Osmolality 308 H Calcium 8.6 Corrected Calcium 9.0 Phosphorus 3.4 Magnesium 2.0 Total Bilirubin 0.9 AST 40 H ALT 20 Alkaline Phosphatase 56 Total Protein 4.8 L Albumin 3.5 Globulin 1.3 L Albumin/Globulin Ratio 2.7 H Impressions Impression: Diffuse gastritis Esophagitis Anemia blood loss Continue current management If need be patient can be anticoagulated ABG Interpretation ABG results: 12/21/24 12/21/24 12/21/24 08:59 18:46 21:36 ABG pH 7.30 L 7.23 L ABG pCO2 38 36 ABG pO2 93 278 H D ABG HCO3 19 L 15 L ABG O2 Saturation 97 100 H ABG Base Excess -7 L -12 L VBG pH 7.35 VBG pCO2 34 L VBG pO2 97 H VBG Base Excess -6 L 12/22/24 07:17 ABG pH 7.43 D ABG pCO2 37 ABG pO2 63 L D ABG HCO3 25 ABG O2 Saturation 94 ABG Base Excess 0 VBG pH VBG pCO2 VBG pO2 VBG Base Excess Assessment & Plan A&P Narrative # Hematemesis etiology uncertain plan Patient's daughters were in the room Palestinian interpretation was done by the nursing staff and consent obtained for fiberoptic esophagogastroduodenoscopy with possible biopsy possible therapeutic intervention scheduled for tomorrow Continue IV Protonix Serial CBC Will follow the patient Other medical problems include Coronary artery disease status post myocardial infarction status post PTCA to the LAD Essential hypertension Hyperlipidemia Diabetes mellitus type 2 DANIAL renal function improving Thank you very much for the opportunity to participate in the care of this patient Time Spent With Patient Time: Total time spent is greater than 50% in coordination of care (as documented) at patient's floor/unit and/or counseling patient:
[2024-12-24] MEDS: ATORVASTATIN CALCIUM 20 MG TABLET 80 MG PO (20:56)
[2024-12-25] VITALS (10 sets, daily range): BP systolic 122–160; BP diastolic 70–83; PULSE 65–73; RESP 19–20; TEMP 36.1–36.3; O2SAT 99
[2024-12-25 05:58] LABS: Basophils # (Auto) 0.0 Thou/mm3 (0.0-0.2); Basophils % (Auto) 0 % (0-2.5); Eosinophils # (Auto) 0.3 Thou/mm3 (0.0-0.5); Eosinophils % (Auto) 3 % (0-10); Hematocrit 27.2 % (36.0-46.0); Hemoglobin 8.9 g/dL (12.0-16.0); Immature Granulocytes Auto 0.02 Thou/mm3 (0.00-0.00); Lymphocytes # (Auto) 1.4 Thou/mm3 (1.0-4.8); Lymphocytes % (Auto) 19 % (10-50); Mean Corpuscular HGB Conc 32.7 g/dl (31.0-37.0); Mean Corpuscular Hemoglobin 29.0 pg (25.0-35.0); Mean Corpuscular Volume 89 fL (80-100); Monocytes # (Auto) 0.8 Thou/mm3 (0.0-0.8); Monocytes % (Auto) 11 % (0-12); Neutrophils # (Auto) 5.1 Thou/mm3 (1.8-7.7); Neutrophils % (Auto) 67 % (37-80); Nucleated Red Blood Cell # 0.00 Thou/mm3 (0.00-0.00); Nucleated Red Blood Cell % 0 /100 WBC (0); Platelet Count 131 Thou/mm3 (140-440); RDW Standard Deviation 50.9 fL (36.4-46.3); Red Blood Count 3.07 Miln/mm3 (4.00-5.20); White Blood Count 7.7 Thou/mm3 (3.6-11.0)
[2024-12-25 06:24] LABS: Alanine Aminotransferase 22 U/L (10-49); Albumin, Serum 3.1 gm/dL (3.4-4.8); Albumin/Globulin Ratio 1.9 (1.2-2.2); Alkaline Phosphatase 59 U/L (46-116); Anion Gap 7 (7-16); Aspartate Amino Transferase 38 U/L (0-34); BUN/Creatinine Ratio 23 Ratio (12-20); Bilirubin,Total 0.5 mg/dL (0.3-1.2); Blood Urea Nitrogen 60 mg/dL (9-23); Calcium 8.4 mg/dL (8.3-10.6); Calcium (Corrected) 9.1 mg/dL (8.5-10.1); Carbon Dioxide 28.3 mMol/L (20.0-31.0); Chloride 108 mMol/L (98-107); Creatinine (Component) 2.6 mg/dL (0.6-1.3); Estimated Creatinine Clearance 15.5 mL/min (>60); Globulin 1.6 gm/dL (2.3-3.5); Glucose 99 mg/dL (74-106); Magnesium 1.8 mg/dL (1.6-2.6); Osmolality,Calculated 301 (275-295); Phosphorous 3.9 mg/dL (2.4-5.1); Potassium 3.7 mMol/L (3.4-5.1); Sodium 143 mMol/L (136-145); Total Protein 4.7 gm/dL (5.7-8.2); eGFR 19 See Note
[2024-12-25] MEDS: INSULIN DEGLUDEC 5 UNIT/0.05 ML (PER 5 UNITS) 10 UNIT SC (08:45)
[2024-12-25] MEDS: POTASSIUM CHLORIDE 10% 20 MEQ/15 ML UDC PO (08:46)
[2024-12-25] MEDS: Magnesium Sulfate 2 GM Ivpb 2 GM/50 ML BAG IV (10:00)
[2024-12-25] MEDS: INSULIN LISPRO (AdmeLOG) 1 UNIT/0.01 ML UNIT SC (11:22)
--- NOTE | 2024-12-25 12:23 | ESPR_ITS ---
Documentation for date of: 12/25/24 Subjective Subjective Interval history: Reason for consult: DANIAL History of present illness: Ms Granda is a 74-year-old female with past medical history of type 2 diabetes mellitus, hypertension, hyperlipidemia, coronary artery disease status post stent, and CKD, who presented on 12/21/2024 with hematemesis. She reported one episode of bright red blood in vomitus in the morning followed by another episode in the ED. She denied melena, hematochezia, abdominal pain, or NSAID use, and takes only daily aspirin. No prior history of GI bleed, cirrhosis, or alcohol use. In the ED, her hemoglobin was 8.9 (baseline 9?10), BUN 106, creatinine 3.1 (baseline ~2.0), and potassium 5.2. She received 1 unit PRBC and 1 L normal saline. GI was consulted and recommended PPI infusion and EGD. CT abdomen/pelvis was suggestive of gastritis with splenomegaly. Patient denies flank pain, dysuria, or decreased urine output. No recent contrast exposure or nephrotoxin use reported. Nephrology was consulted for acute kidney injury on chronic kidney disease. 12/22/2024: Patient seen resting comfortably in bed. No acute complaints. Denies chest pain, dyspnea, or abdominal pain. Reports no nausea, vomiting, or further hematemesis since this morning. Awaiting EGD today. Labs: WBC 9.8, Hgb 10.1, Hct 29.9, Plt 119, Na 140, K 4.7, Cl 112, CO2 24.2, BUN 105, Cr 2.8 (from 3.1), GFR 17, Glu 310, Ca 9.1, Phos 3.2, Mg 1.5. UA negative. ABG: pH 7.43, pCO2 37, PaO2 63, HCO3 25. 12/23/2024: Seen today, patient doing well with no complaints. Resting comfortably in bed. Lungs are clear, no shortness of breath or chest pain. Labs: WBC 11.1, Hgb 9.7, Hct 29.3, Plt 136, Na 156 (yesterday 155), K 3.9, Cl 115, CO2 28.7, BUN 82 (from 105 yesterday), Cr 2.7 (from 2.8 yesterday), Glucose 161, Calculated Osmolality 336, Ca 9.2, Phos 3.6, Mg 2.6 12/24/2024: Patient seen today, resting comfortably with no new complaints. No overnight events. Family was at bedside. Labs: WBC 10.5, Hgb 9.6, Hct 29.6, Plt 131, Na 146, K 3.9, Cl 108, CO2 27.5, BUN 54, Cr 2.5, GFR 20, Ca 9, Phos 3.4, Mg 2.0 12/25/2024: Patient seen today, resting comfortably with no new complaints. No overnight events. Family was at bedside and informed that nephrology will be signing off on the case. Labs: WBC 7.7, Hgb 8.9, Hct 27.2, Plt 131, Na 143, K 3.7, Cl 108, CO2 28.3, BUN 60, Cr 2.6, GFR 19, Ca 9.1, Phos 3.9 Mg 1.8 Exam Vital Signs Temp Pulse Resp BP Pulse Ox O2 Del Method O2 Flow Rate 97.4 F 73 20 160/83 H 99 Nasal Cannula 2 12/25/24 08:00 12/25/24 08:00 12/25/24 08:00 12/25/24 08:00 12/25/24 08:00 12/25/24 08:00 12/25/24 08:00 Narrative Exam General: A/O x3, no acute distress, well-nourished, well-developed Eyes: PERRL, EOMI. Anicteric, vision grossly intact. Mouth/Throat: Moist mucous membranes, no redness, no lesions. Neck: Neck supple, non-tender, no cervical lymphadenopathy. Lungs: Clear ANGELICA to auscultation and percussion, No accessory muscle use. Cardio: Normal S1/S2, regular rhythm, no murmurs, no JVD or carotid bruits. Abdomen: Soft, suprapubic tender, no palpable masses, peristalsis present, no guarding or rebound. Extremities: Symmetrical, no significant deformities, no peripheral edema , non-tender, peripheral pulses present. Skin: No rashes, no lesions, warm to touch. Neuro: No focal neurological deficits. motor and sensory intact Psych: Cooperative, appropriate mood and effect. Objective Labs 12/25/24 05:32 12/25/24 05:32 Labs: Laboratory Results - last 24 hr 12/24/24 12/25/24 17:48 05:32 WBC 7.7 RBC 3.07 L Hgb 8.9 L Hct 27.2 L MCV 89 MCH 29.0 MCHC 32.7 RDW Std Deviation 50.9 H Plt Count 131 L Neut % (Auto) 67 Lymph % (Auto) 19 [place] % (Auto) 11 Eos % (Auto) 3 Baso % (Auto) 0 Neut # (Auto) 5.1 Lymph # (Auto) 1.4 [place] # (Auto) 0.8 Eos # (Auto) 0.3 Baso # (Auto) 0.0 Immature Gran # (Auto) 0.02 H Absolute Nucleated RBC 0.00 Immature Gran % 0 Nucleated RBC % 0 Sodium 144 143 Potassium 3.7 Chloride 108 H Carbon Dioxide 28.3 Anion Gap 7 BUN 60 H Creatinine 2.6 H Estim Creat Clear Calc 15.5 L eGFR 19 L BUN/Creatinine Ratio 23 H Glucose 99 D Calculated Osmolality 301 H Calcium 8.4 Corrected Calcium 9.1 Phosphorus 3.9 Magnesium 1.8 Total Bilirubin 0.5 AST 38 H ALT 22 Alkaline Phosphatase 59 Total Protein 4.7 L Albumin 3.1 L Globulin 1.6 L Albumin/Globulin Ratio 1.9 ABG Interpretation ABG results: 12/21/24 12/21/24 12/21/24 08:59 18:46 21:36 ABG pH 7.30 L 7.23 L ABG pCO2 38 36 ABG pO2 93 278 H D ABG HCO3 19 L 15 L ABG O2 Saturation 97 100 H ABG Base Excess -7 L -12 L VBG pH 7.35 VBG pCO2 34 L VBG pO2 97 H VBG Base Excess -6 L 12/22/24 07:17 ABG pH 7.43 D ABG pCO2 37 ABG pO2 63 L D ABG HCO3 25 ABG O2 Saturation 94 ABG Base Excess 0 VBG pH VBG pCO2 VBG pO2 VBG Base Excess Quality Measures Quality Measures VTE prophylaxis Advance care planning discussed with:: patient Assessment & Plan Assessment Current Active Medications: Generic Name Dose Route Start Last Admin Trade Name Freq PRN Reason Stop Dose Admin Acetaminophen 650 mg 12/21/24 12:10 Acetaminophen 325 Mg Tablet PO 01/20/25 12:09 Q6H PRN Fever >101.5 Acetaminophen 650 mg 12/21/24 12:10 12/22/24 13:52 Acetaminophen 325 Mg Tablet PO 01/20/25 12:09 650 mg Q6H PRN Administration PAIN SCALE 1-3 (mild Hydrocodone Bitart/Acetaminophen 1 tab 12/21/24 12:10 12/24/24 00:53 Hydrocodone/Apap 5/325 Tablet PO 12/26/24 12:09 1 tab Q4HR PRN Administration PAIN SCALE 4-6 (Moderate Atorvastatin Calcium 80 mg 12/23/24 21:00 12/24/24 20:56 Atorvastatin Calcium 20 Mg Tablet PO 01/22/25 20:59 80 mg HS MAYCO Administration Dextrose 25 ml 12/21/24 12:37 Dextrose 50%-Water Inj 50 Ml Syringe IV 01/20/25 12:36 Q15MIN PRN BG 50-70 responsive npo pt Dextrose 50 ml 12/21/24 12:37 Dextrose 50%-Water Inj 50 Ml Syringe IV 01/20/25 12:36 Q15MIN PRN BG <50 OR BG <70 & pt unresponsive Glucagon 1 mg 12/21/24 12:37 Glucagon Inj 1 Mg Vial IM Q15MIN PRN BG <70, and no IV access Hydralazine HCl 25 mg 12/24/24 08:00 12/25/24 06:16 Hydralazine Hcl 25 Mg Tablet PO 01/23/25 07:59 25 mg TID MAYCO Administration Ceftriaxone Sodium/Dextrose 1 gm in 50 mls @ 100 mls/hr 12/23/24 14:30 12/24/24 14:53 Rocephin/D5w 1gm Iv Premix IV 12/30/24 14:29 100 mls/hr QDAY@1400 MAYCO Administration Insulin Degludec 10 unit 12/22/24 09:00 12/25/24 08:45 Insulin Degludec 5 Unit/0.05 Ml (Per 5 Units) SC 01/21/25 08:59 10 unit QDAY MAYCO Administration Insulin Human Lispro 0 unit 12/23/24 07:30 12/25/24 11:22 Insulin Lispro (Admelog) 1 Unit/0.01 Ml Unit SC 01/22/25 07:29 3 unit ACHS MAYCO Administration Protocol Metoprolol Succinate 25 mg 12/25/24 21:00 Metoprolol Succinate Xl 25 Mg Tabcr PO 01/24/25 20:59 QDAY MAYCO Ondansetron HCl 4 mg 12/21/24 12:10 12/24/24 04:19 Ondansetron Inj 2 Mg/Ml Inj 2 Ml IVP 01/20/25 12:09 4 mg Q6H PRN Administration NAUSEA OR VOMITING Protocol Pantoprazole Sodium 40 mg 12/22/24 09:00 12/25/24 08:46 Pantoprazole Inj 40 Mg Vial IVP 01/21/25 08:59 40 mg Q12HR MAYCO Administration Sucralfate 1 gm 12/25/24 14:00 Sucralfate 1 Gm Tablet PO 01/24/25 13:59 TID MAYCO Plan 74-year-old female with a history of CKD, hypertension, and recent GI bleed, now with stable renal function (creatinine returned to baseline), improving electrolyte status, and controlled blood pressure after hydralazine initiation. Nephrology will sign off on the case today. # DANIAL on CKD Likely pre-renal azotemia from volume depletion secondary to GI bleed Improvement in renal function (Cr 2.6 from 2.8), stable volume status with continued fluid management. No evidence of obstruction or intrinsic renal process. Plan: * Patient?s creatinine is now back to baseline (2.6). * BUN remains elevated but improved, most likely due to the underlying GI bleed. * No further indication for nephrology intervention at this time. * Nephrology will sign off after today?s review. # Hypernatremia (improved) Sodium trended up from 156-> 143 Likely dehydration-related. Plan: * Encourage patient to increase fluid intake. * Sodium goal 145. Other active problems: # GI bleed, hematemesis # DM2 # HTN # CAD # HLD Management per primary team ----- Plan discussed with attending physician Dr. Manjit Fish MD PGY-1 Internal Medicine Attending Provider Attestation/Addendum Patient seen and examined with resident physician Dr. Fish. Note reviewed, agree with findings and recommendations. Patient currently seen in telemetry. Family at bedside. Noted orthostatic hypotension with high blood pressure. Spoke to Dr. Mccoy out of bed to chair today and medications adjusted. Kidney function seems to be stable. Renal gauthier discharge if blood pressure stable
[2024-12-25] MEDS: SUCRALFATE 1 GM TABLET PO (13:44)
[2024-12-25] MEDS: cefTRIAXone/D5w 1gm IV premix 1 GM/50 ML BAG IV (13:44)
--- NOTE | 2024-12-25 15:20 | ESDS_ITS ---
<Statement entered by Laura Mccoy DO - 12/26/24 07:49> I, Larua Mccoy DO, attest that I was physically present for the pinedo portions of the service and evaluated the patient with the resident and I reviewed and discussed the case with the resident and agree with the resident's findings and plans of care as documented above <Statement entered by Tobias Stallworth MD - 12/25/24 15:38> I have reviewed the note and agree with the resident's assessment & plan with exceptions as below. I have personally reviewed labs, imaging, home meds/prior records, examined the patient, formulated and discussed management plan with my attending Patient was seen and examined at bedside morning. No acute overnight events. Patient states that she is less dizzy when standing up and that her brain sensation urination is improving. Patient's EGD shows some hemorrhagic gastritis therefore patient was to be discharged on her sucralfate and Protonix. Patient will need to follow-up with primary care physician as well as nephrology, cardiology, and gastroenterology. At this time patient is stable enough to be discharged home with home health was discharged on antibiotics for UTI as well as sucralfate and Protonix. Will need to follow-up with cardiology for echo results. Tobias Stallworth PGY2 Disclaimer: Even though this this note was dictated by speech recognition and even though it was carefully revised there may still be minor errors in funeral counselor due to voice recognition software. Planned Discharge Date 12/25/24 DS: Providers Provider Date of admission: 12/21/24 12:10 Primary care physician: Puneet Anguiano MD Admitting Provider: Laura Mccoy DO Attending Provider on Admission: Laura Mccoy DO Consults: 12/21/24 10:14 Consult to Gastroenterology Stat Comment: Consulting Provider: Arnold Red 12/21/24 17:05 Consult to Nephrology Routine Comment: Consulting Provider: Nata Saravia 12/23/24 09:49 Referral Physical Therapy Routine Comment: Physician Instructions: Attending Provider on DC: Laura Mccoy DO Discharging Provider: Laura Mccoy DO DS: Diagnosis Problem List Completed Was Problem List Reviewed/Reconciled?: Yes Hospital Course Hospital Course Hospital course: Hospital Course: Patient is a 74-year-old F with PMH of T2DM, HTN, HLD, CAD s/p stents, and GERD admitted to the hospital on 12/21/2024 due to GI bleed upper versus lower. Patient stated that she had bright red bloody emesis in the morning; denied blood in the stools or taking any high doses of ibuprofen or any other NSAIDs. States she takes aspirin once a day; never had any episodes like this in the past and has no history of cirrhosis. Hgb was 8.9 (baseline is around 9-10). ED gave 1 PRBC and 1 L NS, GI consulted. That evening, rapid response was called for syncope, likely vasovagal; 1L NS and 3 units pRBCs were transfused; Hgb went from 7 to 10. On 12/22/24, patient underwent EGD, which showed hemorrhagic gastritis with polyp in the gastric fundus. GI recommended Protonix and advancing diet as tolerated. On 12/23/2024, patient complained of suprapubic pain and burning; got a UA and started ceftriaxone 1 g daily. On 12/24/24, patient had been hypertensive all night, requiring hydralazine 10 mg IV; started on hydralazine 25 3 times daily, she also got nifedipine 30 x 1. Orthostatic vitals were positive, while her urine was positive for leukocyte esterase. given positive orthostatic and pericardial effusion in CT an echo was ordered. On 12/25/2024, patient was stable enough to be discharged with home health, antibiotics for UTI and Protonix. Discharge Instructions: Please follow-up with primary care physician within 2 or 3 days upon discharge Follow up with your primary care physician for a repeat renal panel in 1 week Please follow-up with your instructor of nursing and java scala developer within 7 days upon discharge Follow up with your instructor of nursing for echo results Please follow-up with your internet sourcer within 7 days upon discharge You have been started on sucralfate 1 g twice daily for 1 month and pantoprazole 40 mg daily for 1 month. We have started you on cephalexin 500 mg daily for 4 more days. We have started you on hydralazine 25 mg 3 times daily We have stopped your farxiga, sodium bicarbonate, and hydrochlorothiazide. We have changed your Januvia to 50 mg daily (half a pill) Do straight in and out catheter if have not voided in 6 hours Please continue taking all your home medications as prescribed Please come back to the ER symptoms persist or worsen Problem List: #hemorrhagic gastritis #Hematemesis #Acute blood loss anemia #Pericardial effusion #DANIAL on CKDstageIIIb-IV #Hyperkalemia, resolved #Hypernatremia #HTN #Dysuria #DM #HLD #CAD #Gout Status at Discharge Overall status at discharge: patient is progressing back to baseline Time Spent with Patient Time attestation: Total time spent providing and/or coordinating discharge services: Time spent: Greater than 30 minutes Home Health Home Health Referral Orders: 12/24/24 10:23 Home Health Referral Routine Reason For Exam: gi bleed Home-Bound The patient must either because of illness or injury, need the aid of supportive devices such as crutches, canes, wheelchairs, and walkers; the use of special transportation; or the assistance of another person in order to leave their place of residence; OR have a condition such that leaving his or her home is medically contraindicated. In addition, the patient also meets the following criteria: patient is normally unable to leave the home and leaving home requires considerable taxing effort. Addendum to Home Health Certification Practitioner's Certification: I certify that the patient has been under my care in the hospital and the care of attending physician (see below). We had a [id number] encounter on (see date below). My clinical findings indicate that the patient is home bound per the above criteria and the Home Health Services noted in these orders are medically necessary. The primary reason for the hgma-[id number] encounter is related to the fact that the patient requires home health services. Date Certifying Mcbd-ft-Gwpe Physician Encounter: 12/21/24 Physician's Name who will Assume Oversight for Services: Puneet Anguiano Physician's Phone No.who will Assume Oversight for Service: CARBON PASTE MIXER OPERATOR - Community Resources: No PT to Evaluate: Yes PT to evaluate and provide a treatmnet plan to increase patient's mobility and strength. Wound Care: No IV Therapy: No RN Safety Evaluation: Yes RN to evaluate and create a plan of care that will produce positive outcomes. Palliative Treatment: No Palliative treatment and evaluate the need for hospice. Home Health Aide - Personal Care: Yes Home Health Aide to assist with any ADL's. Exam Vital Signs Temp Pulse Resp BP Pulse Ox O2 Del Method O2 Flow Rate 97.0 F 70 19 137/70 H 99 Room Air 2 12/25/24 12:00 12/25/24 13:44 12/25/24 12:00 12/25/24 13:44 12/25/24 12:00 12/25/24 12:00 12/25/24 08:00 Narrative Exam General: A/O x3, no acute distress, well-nourished, well-developed Eyes: PERRL, EOMI. Anicteric, vision grossly intact. Ears: No ear pain, no ear discharge, Hearing grossly intact. Nose: No nasal discharge. Mouth/Throat: Moist mucous membranes, no redness, no lesions. Neck: Neck supple, non-tender, no cervical lymphadenopathy. Lungs: Clear ANGELICA to auscultation and percussion, No accessory muscle use. Cardio: Normal S1/S2, regular rhythm, no murmurs, no JVD or carotid bruits. Abdomen: Soft, non-tender, no palpable masses, peristalsis present, no guarding or rebound. Extremities: Symmetrical, no significant deformities, no peripheral edema , non-tender, peripheral pulses present. Skin: No rashes, no lesions, warm to touch. Neuro: No focal neurological deficits. motor and sensory intact Psych: Cooperative, appropriate mood and effect. Discharge Plan Plan Patient Disposition: Home w/HOME HEALTH Patient condition on transfer: Stable Care Plan Goals: Please follow-up with primary care physician within 2 or 3 days upon discharge Follow up with your primary care physician for a repeat renal panel in 1 week Please follow-up with your instructor of nursing and java scala developer within 7 days upon discharge Follow up with your instructor of nursing for echo results Please follow-up with your internet sourcer within 7 days upon discharge You have been started on sucralfate 1 g twice daily for 1 month and pantoprazole 40 mg daily for 1 month. We have started you on cephalexin 500 mg daily for 4 more days. We have started you on hydralazine 25 mg 3 times daily We have stopped your farxiga, sodium bicarbonate, and hydrochlorothiazide. We have changed your Januvia to 50 mg daily (half a pill) Do straight in and out catheter if have not voided in 6 hours Please continue taking all your home medications as prescribed Please come back to the ER symptoms persist or worsen Prescriptions/Referrals Prescriptions/Med Rec: New hydralazine 25 mg Tablet 25 mg PO TID 30 Days Qty: 90 0RF sucralfate 1 gram tablet 1 g PO BID 30 Days Qty: 60 0RF pantoprazole 40 mg tablet,delayed release (DR/EC) 40 mg PO QDAY Qty: 30 0RF cephalexin 500 mg capsule 500 mg PO QDAY Qty: 4 0RF Continued allopurinol 300 mg tablet 300 mg PO QDAY Patient Comments: TOME ROGE TABLETA TODOS LOS D Cari-Marycruz 0.8 mg tablet 1 tab PO QDAY Patient Comments: TOME ROGE TABLETA TODOS LOS D aspirin 81 mg Tablet,Delayed Release (Dr/Ec) 81 mg PO QDAY docusate sodium [Colace] 100 mg capsule 100 mg PO BID Qty: 40 0RF hydrocodone-acetaminophen 5-325 mg tablet 1 tab PO Q6H MDD 4 PRN (Reason: pain (scale score 7-10)) Qty: 20 0RF meclizine 12.5 mg Tablet 12.5 mg PO BID PRN (Reason: Dizziness) ferrous sulfate 325 mg (65 mg iron) Tablet 325 mg PO DAILY metoprolol tartrate 25 mg Tablet 25 mg PO QDAY insulin glargine [Lantus Solostar U-100 Insulin] 100 unit/mL (3 mL) insulin pen 10 unit SUBCUT QAM Patient Comments: INYECTE 10 UNIDADES DEBAJO DE LA PIEL DIARIO EN LA MANANA CUANDO SEA NECESARIO Changed atorvastatin 80 mg tablet 80 mg PO HS Qty: 30 0RF Patient Comments: TOME 1 TABLETA POR V A ORAL TODOS LOS D FOR 90 DAYS Januvia 100 mg tablet 50 mg PO QDAY Qty: 15 0RF Patient Comments: TOME ROGE TABLETA TODOS LOS D Discontinued sodium bicarbonate 325 mg tablet 325 mg PO DAILY Patient Comments: TOME ROGE TABLETA DOS VECES AL D A hydrochlorothiazide 25 mg Tablet 25 mg PO DAILY dapagliflozin propanediol [Farxiga] 5 mg Tablet 5 mg PO DAILY Referrals: Puneet Anguiano MD [Primary Care Provider, Family Practice] Arnold Red MD [Physician, Gastroenterology] Nata Saravia MD [Physician, Nephrology] Patient/Caregiver Discharge Instructions Other Discharge Activity Instructions:: Please follow-up with primary care physician within 2 or 3 days upon discharge Follow up with your primary care physician for a repeat renal panel in 1 week Please follow-up with your instructor of nursing and java scala developer within 7 days upon discharge Follow up with your instructor of nursing for echo results Please follow-up with your internet sourcer within 7 days upon discharge You have been started on sucralfate 1 g twice daily for 1 month and pantoprazole 40 mg daily for 1 month. We have started you on cephalexin 500 mg daily for 4 more days. We have started you on hydralazine 25 mg 3 times daily We have stopped your farxiga, sodium bicarbonate, and hydrochlorothiazide. We have changed your Januvia to 50 mg daily (half a pill) Do straight in and out catheter if have not voided in 6 hours Please continue taking all your home medications as prescribed Please come back to the ER symptoms persist or worsen Education Materials: Bleeding Gastrointestinal, Treating Gastritis, Understanding Gastritis Print Language: Romanian Stand Alone Forms: Rajni Award Info., Patient Portal Info Letter Discharge Order Discharge Orders: Discharge (Routine); Ordered 12/25/24 Ordered By: Tobias Stallworth Quality Discharge Quality Measures none
--- NOTE | 2024-12-25 22:04 | ESPR_ITS ---
Documentation for date of: 12/25/24 Subjective Subjective Interval history: Late entry for the note hemoglobin hematocrit 8.9 and 29.6 slight drop No signs of an ocular bleeding Okay to discharge patient Exam Vital Signs Temp Pulse Resp BP Pulse Ox O2 Del Method O2 Flow Rate 97.0 F 70 19 137/70 H 99 Room Air 2 12/25/24 12:00 12/25/24 16:00 12/25/24 12:00 12/25/24 13:44 12/25/24 12:00 12/25/24 12:00 12/25/24 08:00 Objective Labs 12/25/24 05:32 12/25/24 05:32 Labs: Laboratory Results - last 24 hr 12/25/24 05:32 WBC 7.7 RBC 3.07 L Hgb 8.9 L Hct 27.2 L MCV 89 MCH 29.0 MCHC 32.7 RDW Std Deviation 50.9 H Plt Count 131 L Neut % (Auto) 67 Lymph % (Auto) 19 [place] % (Auto) 11 Eos % (Auto) 3 Baso % (Auto) 0 Neut # (Auto) 5.1 Lymph # (Auto) 1.4 [place] # (Auto) 0.8 Eos # (Auto) 0.3 Baso # (Auto) 0.0 Immature Gran # (Auto) 0.02 H Absolute Nucleated RBC 0.00 Immature Gran % 0 Nucleated RBC % 0 Sodium 143 Potassium 3.7 Chloride 108 H Carbon Dioxide 28.3 Anion Gap 7 BUN 60 H Creatinine 2.6 H Estim Creat Clear Calc 15.5 L eGFR 19 L BUN/Creatinine Ratio 23 H Glucose 99 D Calculated Osmolality 301 H Calcium 8.4 Corrected Calcium 9.1 Phosphorus 3.9 Magnesium 1.8 Total Bilirubin 0.5 AST 38 H ALT 22 Alkaline Phosphatase 59 Total Protein 4.7 L Albumin 3.1 L Globulin 1.6 L Albumin/Globulin Ratio 1.9 Impressions Impression: Gastritis esophagitis Okay to discharge patient on a PPI to be followed by PCP ABG Interpretation ABG results: 12/21/24 12/21/24 12/21/24 08:59 18:46 21:36 ABG pH 7.30 L 7.23 L ABG pCO2 38 36 ABG pO2 93 278 H D ABG HCO3 19 L 15 L ABG O2 Saturation 97 100 H ABG Base Excess -7 L -12 L VBG pH 7.35 VBG pCO2 34 L VBG pO2 97 H VBG Base Excess -6 L 12/22/24 07:17 ABG pH 7.43 D ABG pCO2 37 ABG pO2 63 L D ABG HCO3 25 ABG O2 Saturation 94 ABG Base Excess 0 VBG pH VBG pCO2 VBG pO2 VBG Base Excess Assessment & Plan A&P Narrative # Hematemesis etiology uncertain plan Patient's daughters were in the room Swedish interpretation was done by the nursing staff and consent obtained for fiberoptic esophagogastroduodenoscopy with possible biopsy possible therapeutic intervention scheduled for tomorrow Continue IV Protonix Serial CBC Will follow the patient Other medical problems include Coronary artery disease status post myocardial infarction status post PTCA to the LAD Essential hypertension Hyperlipidemia Diabetes mellitus type 2 DANIAL renal function improving Thank you very much for the opportunity to participate in the care of this patient Time Spent With Patient Time: Total time spent is greater than 50% in coordination of care (as documented) at patient's floor/unit and/or counseling patient:
--- NOTE | 2024-12-26 10:11 | PC.CC ---
Addendum entered by Arturo Gomez RN 12/26/24 11:01: Patient accepted by [facility]ENNIFER DAVIS, [facility] 24-48 hrs. Original Note: Home health referral sent our via [email or web address], pending responses at this time.
== END 2024-12-25 16:03 | disposition home health service (06) | DRG 241 ==
LOC: SERX 07:38 → SERHOLD 12:30 → S3SX 15:40 → S2NX 19:52 → S3SX 12-24 18:34
PROVIDERS: Internal Medicine; Specialist; Student in an Organized Health Care Education/Training Program; Admitting Provider Internal Medicine; Emergency Provider Emergency Medicine; PCP Family Medicine; Visit Provider Internal Medicine
PROC: (CPT 43239; principal; 2024-12-22 19:00)
DX: K29.71 Gastritis, unspecified, with bleeding (principal); D62 Acute posthemorrhagic anemia; N17.9 Acute kidney failure, unspecified; N18.32 Chronic kidney disease, stage 3b; E78.5 Hyperlipidemia, unspecified; M10.9 Gout, unspecified; Z95.5 Presence of coronary angioplasty implant and graft; I25.10 Atherosclerotic heart disease of native coronary artery without angina pectoris; E11.22 Type 2 diabetes mellitus with diabetic chronic kidney disease; E87.5 Hyperkalemia; I12.9 Hypertensive chronic kidney disease with stage 1 through stage 4 chronic kidney disease, or unspecified chronic kidney disease; I25.2 Old myocardial infarction; K21.9 Gastro-esophageal reflux disease without esophagitis; E86.1 Hypovolemia; E87.0 Hyperosmolality and hypernatremia; K31.89 Other diseases of stomach and duodenum; I16.0 Hypertensive urgency; I31.39 Other pericardial effusion (noninflammatory); K31.7 Polyp of stomach and duodenum; K21.00 Gastro-esophageal reflux disease with esophagitis, without bleeding; E86.0 Dehydration; I95.1 Orthostatic hypotension; N39.0 Urinary tract infection, site not specified; Z79.01 Long term (current) use of anticoagulants; Z79.02 Long term (current) use of antithrombotics/antiplatelets; Z79.82 Long term (current) use of aspirin; Z79.4 Long term (current) use of insulin; Z79.899 Other long term (current) drug therapy
CPT/HCPCS: 36415; 36430; 36600; 51701; 70450; 71045; 74176; 80048; 80053; 80069; 81001; 82803; 83605; 83690; 83735; 83880; 84100; 84295; 84484; 85014; 85018; 85025; 85610; 85730; 86850; 86900; 86901; 86923; 93005; 93225; 93306; 94640; 97163; 99284; A4649; J0360; J0613; J0696; J1200; J1815; J2250; J2405; J2470; J3010; J3475; J3490; J7030; J7060; J7120; P9016; A9270

== ENCOUNTER 2024-12-28 23:26 | Emergency (ER) | payer MEDICAID, SELFPAY ==
[2024-12-28 23:32] VITALS: PULSE 102; O2SAT 99; BMI 21.6
--- NOTE | 2024-12-28 23:42 | PD.EDRECHK ---
ED Recheck Abnl Lab Rx-RME/HPI General Chief Complaint: General Adult/Misc Complain Stated Complaint: CHILLS Arrival date/time: 12/28/24 23:26 RME / HPI RME / HPI narrative: See MDM for Dr. Santiago's HPI documentation. Related Data Home Medications ?Medication ?Instructions ?Recorded ?Confirmed allopurinol 300 mg tablet 300 mg PO QDAY 05/24/21 12/23/24 vitamin B complex-vitamin C-folic 1 tab PO QDAY 05/24/21 12/23/24 acid 0.8 mg tablet (Cari-Marycruz) aspirin 81 mg tablet,delayed 81 mg PO QDAY 06/21/23 12/23/24 release ferrous sulfate 325 mg (65 mg 325 mg PO DAILY 12/23/23 12/23/24 iron) tablet insulin glargine 100 unit/mL (3 10 unit subcut QAM 12/23/23 12/23/24 mL) subcutaneous pen (Lantus Solostar U-100 Insulin) meclizine 12.5 mg tablet 12.5 mg PO BID PRN Dizziness 12/23/23 12/23/24 metoprolol tartrate 25 mg tablet 25 mg PO QDAY 12/23/23 12/23/24 Previous Rx's ?Medication ?Instructions ?Recorded docusate sodium 100 mg capsule 100 mg PO BID #40 caps 06/22/23 (Colace) hydrocodone 5 mg-acetaminophen 325 1 tab PO Q6H PRN pain (scale score 06/22/23 mg tablet 7-10) #20 tabs atorvastatin 80 mg tablet 80 mg PO HS #30 tabs 12/25/24 cephalexin 500 mg capsule 500 mg PO QDAY #4 caps 12/25/24 hydralazine 25 mg tablet 25 mg PO TID 30 days #90 tabs 12/25/24 pantoprazole 40 mg tablet,delayed 40 mg PO QDAY #30 tabs 12/25/24 release sitagliptin phosphate 100 mg 50 mg (1/2 x 100 mg) PO QDAY #15 12/25/24 tablet (Januvia) tabs sucralfate 1 gram tablet 1 g PO BID 30 days #60 tabs 12/25/24 Allergies Allergy/AdvReac Type Severity Reaction Status Date / Time No Known Allergies Allergy Verified 12/22/23 21:38 Review of Systems Review of Systems Systems Reviewed: All systems reviewed, normal except as documented Past Medical History Past Medical History NEUROLOGIC: Negative Neurological Disorders or Seizures CARDIAC: Positive Cardiac Disorders, Hypercholesterolemia and Hypertension; Negative Congestive Heart Failure RESPIRATORY: Negative Chronic Obstructive Pulmonary Disease (COPD) or Asthma GASTROINTESTINAL: Positive Gastrointestinal Disorders and Gall Bladder Disease; Negative Hepatitis GENITOURINARY: Positive Genitourinary Disorders and Renal Disease REPRODUCTIVE: Positive Previous Pregnancies MUSCULOSKELETAL: Positive Musculoskeletal Disorders and Arthritis ENT: Positive Cataracts and Blind ENDOCRINE: Positive Endocrine Disorders and Diabetes Mellitus Type 2; Negative Diabetes Mellitus Type 1 HEMATOLOGIC: Positive Blood Disorders and Anemia; Negative Sickle Cell Disease PSYCHO/SOCIAL: Positive Anxiety OTHER HISTORY: Positive Hospitalization, Blood Transfusions and Chicken Pox; Negative Autoimmune Disease, Shingles, Blood Transfusion Reaction, Anesthesia Reactions, MRSA or Cancer Family History FAMILY HISTORY: Negative Family Psychiatric Problems, Family Respiratory Disorders, Family Cardiac Disorders, Family Gastrointestinal Problems, Family Cancer, Family Surgery or Family Anesthesia Reaction Surgical History SURGICAL: Negative Cardiac Surgery, Endocrine Surgery, Ear Surgery, Abdominal Surgery, Nephrectomy, Joint Replacement, Mastectomy or Vasectomy Social History SMOKING STATUS: Never smoker SUBSTANCE USE: does not use ED Exam Narrative Physical exam: See [facility] for Dr. Santiago's physical exam documentation. Course Quality Measures none Recheck / Abnormal Lab / Rx MDM Narrative [facility] Narrative:: This section includes all my notes and documentations, including HPI, PE, and ED course. Henrry Santiago MD HPI: 74yo female with history of DMII, HTN, HLD BIBA from home here with ROS: All negative except as documented in HPI. Physical Exam: General: Alert and oriented. No acute distress when remaining still. Eyes: Conjunctivae and lids clear. ENT: No nasal congestion. Neck: Supple. Heart: RRR. Lungs: No respiratory distress. Good air movement. No rhonchi, wheezing, rales. Abdomen: Soft and nontender. Normal bowel sounds. No distension. No rebound or guarding. Back: No CVA tenderness. Skin: Warm and dry. Neuro: Alert and oriented X 3. I reviewed EMS notes. I reviewed all diagnostic test results. My interpretation of the EKG is My interpretation of the chest x-ray is My review of the CT report is Blood tests and urine tests At this point, diagnoses include Treatment here included Significant improvement Not yet done: I discussed the case with our hospitalist. About the presentation and exam and diagnostics and treatments here. And need of further care in the hospital. Will accept the patient. Not yet done: Based on my best medical judgment, made decision no further evaluation or treatment indicated at this time. Patient understands and agrees to the discharge instructions customized and printed, see below. Henrry Santiago MD Patient data External records reviewed:: [facility] previous records and EMS form Clinical information provided by:: patient and EMS Social determinants that could affect healthcare access:: none Patient has the following chronic illnesses:: DM, HTN, HLD How is presenting disease/condition affected by chronic disease/condition?: exacerbated by Evaluation data The following diagnostics were reviewed and interpreted by me:: lab results Lab and/or radiology exams considered but not ordered:: none Discharge Plan Prescriptions/Referrals Prescriptions/Med Rec: No Action allopurinol 300 mg tablet 300 mg PO QDAY Patient Comments: TOME ROGE TABLETA TODOS LOS D Cari-Marycruz 0.8 mg tablet 1 tab PO QDAY Patient Comments: TOME ROGE TABLETA TODOS LOS D aspirin 81 mg Tablet,Delayed Release (Dr/Ec) 81 mg PO QDAY docusate sodium [Colace] 100 mg capsule 100 mg PO BID Qty: 40 0RF hydrocodone-acetaminophen 5-325 mg tablet 1 tab PO Q6H MDD 4 PRN (Reason: pain (scale score 7-10)) Qty: 20 0RF hydralazine 25 mg Tablet 25 mg PO TID 30 Days Qty: 90 0RF atorvastatin 80 mg tablet 80 mg PO HS Qty: 30 0RF Patient Comments: TOME 1 TABLETA POR V A ORAL TODOS LOS D FOR 90 DAYS Januvia 100 mg tablet 50 mg PO QDAY Qty: 15 0RF Patient Comments: TOME ROGE TABLETA TODOS LOS D sucralfate 1 gram tablet 1 g PO BID 30 Days Qty: 60 0RF pantoprazole 40 mg tablet,delayed release (DR/EC) 40 mg PO QDAY Qty: 30 0RF cephalexin 500 mg capsule 500 mg PO QDAY Qty: 4 0RF meclizine 12.5 mg Tablet 12.5 mg PO BID PRN (Reason: Dizziness) ferrous sulfate 325 mg (65 mg iron) Tablet 325 mg PO DAILY metoprolol tartrate 25 mg Tablet 25 mg PO QDAY insulin glargine [Lantus Solostar U-100 Insulin] 100 unit/mL (3 mL) insulin pen 10 unit SUBCUT QAM Patient Comments: INYECTE 10 UNIDADES DEBAJO DE LA PIEL DIARIO EN LA MANANA CUANDO SEA NECESARIO Patient/Caregiver Discharge Instructions Print Language: Cape Verdean
[2024-12-28 23:43] VITALS: BP 174/110; PULSE 94; RESP 18; TEMP 36.9; O2SAT 99
--- NOTE | 2024-12-28 23:48 | EDNOTE_ITS ---
ED SOB =RME/HPI General Chief Complaint: Shortness of Breath/Dyspnea Stated Complaint: CHILLS Time Seen by Provider: 12/28/24 23:46 Arrival date/time: 12/28/24 23:26 RME / HPI RME / HPI Narrative: See MDM for Dr. Santiago's HPI documentation. Related Data Home Medications ?Medication ?Instructions ?Recorded ?Confirmed allopurinol 300 mg tablet 300 mg PO QDAY 05/24/2111/27 vitamin B complex-vitamin C-folic 1 tab PO QDAY 12/23/24 acid 0.8 mg tablet (Cari-Marycruz) aspirin 81 mg tablet,delayed 81 mg PO QDAY 06/21/23 release ferrous sulfate 325 mg (65 mg 325 mg PO DAILY 12/23/23 12/23/24 iron) tablet insulin glargine 100 unit/mL (3 10 unit subcut QAM 12/23/24 mL) subcutaneous pen (Lantus Solostar U-100 Insulin) meclizine 12.5 mg tablet 12.5 mg PO BID PRN Dizziness 12/23/23 12/23/24 metoprolol tartrate 25 mg tablet 25 mg PO QDAY 4 12/23/24 Previous Rx's ?Medication ?Instructions ?Recorded docusate sodium 100 mg capsule 100 mg PO BID #40 caps 06/22/23 (Colace) hydrocodone 5 mg-acetaminophen 325 1 tab PO Q6H PRN pa in (scale score 06/22/23 mg tablet 7-10) #20 tabs atorvastatin 80 mg tablet 80 mg PO HS #30 tabs 5 cephalexin 500 mg capsule 500 mg PO QDAY #4 caps 12/25 hydralazine 25 mg tablet 25 mg PO TID 30 days #90 tab s 12/25/24 pantoprazole 40 mg tablet,delayed 40 mg PO QDAY #30 ta bs 12/25/24 release sitagliptin phosphate 100 mg 50 mg (1/2 x 100 mg) PO Q DAY #15 12/25/24 tablet (Januvia) tabs sucralfate 1 gram tablet 1 g PO BID 30 days #60 tabs 12/25/24 acetaminophen 300 mg-codeine 30 mg 2 tab PO Q8H PRN pa in #20 tabs 12/29/24 tablet lidocaine 5 % topical patch 1 patch topical QDAY PRN p ain #30 12/29/24 (Lidoderm) ea Allergies Allergy/AdvReac Type Severity Reaction Status Date / Time No Known Allergies Allergy Verified 12/22/23 21:38 Review of Systems Review of Systems Systems Reviewed: All systems reviewed, normal except as documented ED Exam Narrative Physical exam: See [facility] for Dr. Santiago's physical exam documentation. Course Quality Measures none Orders Category Date Time Status Bedside COVID-19 Antigen Test NOW Care 12/28/24 23:55 Completed EKG (ED ONLY) *Do not use* NOW Care 12/28/24 23:56 Completed Rigid cervical collar PRN Care 12/29/24 00:36 Completed Saline [Insert IV] NOW Care 12/28/24 23:55 Completed Straight [In and Out Catheter] X1 Care 12/28/24 23:[address] cervical spine wo con Stat Exams 12/28/24 23:[address] chest abdomen pelvis wo Stat Exams 12/29/24 00:[address] head/brain wo con Stat Exams 12/28/24 23:56 Taken EKG (ED Only) Stat Exams 12/28/24 23:56 Ordered XR chest 1V portable Stat Exams 12/28/24 23:56 Taken BNP [B-Type Natriuretic Peptide] Stat Lab 12/28/24 00:00 Completed Bilirubin,Direct Stat Lab 12/28/24 00:00 Completed Blood Culture (Lab) Stat Lab 12/28/24 00:00 Received CBC Stat Lab 12/28/24 00:00 Completed CK [Creatine Kinase] Stat Lab 12/28/24 00:00 Completed CMP [Comprehensive Metabolic Panel] Stat Lab 12/28/24 00:00 Completed CRP [C-Reactive Protein] Stat Lab 12/28/24 00:00 Completed ESR [Sed Rate (ESR)] Stat Lab 12/28/24 00:00 Completed Influenza A & B Rapid Panel Stat Lab 12/29/24 00:56 Completed Lactate (Lactic Acid) Stat Lab 12/28/24 00:00 Completed Lipase Stat Lab 12/28/24 00:00 Completed Magnesium Stat Lab 12/28/24 00:00 Completed PT [Prothrombin Time with INR] Stat Lab 12/28/24 00:00 Completed PTT [Partial Thromboplastin Time] Stat Lab 12/28/24 00:00 Completed Procalcitonin Stat Lab 12/28/24 00:00 Completed TSH [Thyroid Stimulating Hormone] Stat Lab 12/28/24 00:00 Completed Troponin I Stat Lab 12/28/24 00:00 Completed UA, C/S IF [Urinalysis, C/S if Indicated] Stat Lab 12/29/24 01:00 Completed Morphine* Inj Med 12/28/24 23:55 Discontinued 2 mg IV X1 ONE Ondansetron Inj [Zofran Inj] Med 12/28/24 23:55 Discontinued 4 mg IVP X1 ONE Sodium Chloride 0.9% 1000 ml [Ns] 1,000 ml Med 12/28/24 23:55 Discontinued IV 999 mls/hr cloNIDine HCL [Catapres] Med 12/28/24 23:55 Discontinued 0.1 mg PO X1 ONE Vital Signs Vital signs: Vital Signs Temperature 98.4 F 12/28/24 23:43 Pulse Rate 94 12/28/24 23:43 Respiratory Rate 18 12/28/24 23:43 Blood Pressure 174/110 H 12/28/24 23:43 Pulse Oximetry (%) 99 12/28/24 23:43 Oxygen Delivery Method Room Air 12/28/24 23:43 Shortness of Breath / Dyspnea MDM Narrative MDM Narrative:: This section includes all my notes and documentations, including HPI, PE, and ED course. Henrry Santiago MD HPI: 74-year-old female with history of DMII, HTN, HLD BIBA here with headache and neck pain. According to EMS, she reported chills and aches. Here, patient reports no fever or chills or aches. No speech or visual impairment. No loss of power in arms or legs. No numbness or tingling. No other complaints. ROS: All negative except as documented in HPI. Physical Exam: General: Alert and oriented. No acute distress when remaining still. High BP noted. Eyes: Conjunctivae and lids clear. PERRL. EOMI. ENT: No nasal congestion. Neck: Equivocal midline tenderness. Heart: RRR. Lungs: No respiratory distress. Good air movement. No rhonchi, wheezing, rales. Abdomen: Soft and nontender. Normal bowel sounds. No distension. No rebound or guarding. Back: No CVA tenderness. Skin: Warm and dry. Neuro: Alert and oriented X 3. Cranial nerves II to XII grossly normal. No peripheral motor deficits. I reviewed EMS notes. I reviewed all diagnostic test results. My interpretation of the EKG is sinus rhythm with nonspecific ST-T changes. My interpretation of the chest x-ray is unremarkable. My review of the CT head report is unremarkable. My review of the CT cervical spine report is unremarkable. My review of the CT chest abdomen report is unremarkable. Blood/urine tests unremarkable. COVID/Influenza negative. At this point, diagnoses include: Neck pain Treatment here included: IVF Zofran 4 mg IV Morphine 2 mg IV Oral clonidine 0.1 mg Significant improvement noted. Recommended supportive care. Based on my best medical judgment, made decision no further evaluation or treatment indicated at this time. Patient understands and agrees to the discharge instructions customized and printed, see below. Discharge instructions from Dr. Santiago: 1. After extensive evaluation, there is no life-threatening condition. Such as stroke or brain tumor heart attack. 2. And there is no serious infection. Such as pneumonia or urine infection. 3. Lidocaine patches and Tylenol with codeine as needed for pain. 4. See a private doctor on 12/31/2024 for recheck and further care. Ask to review all test results and official radiology reports, to make sure you receive all necessary follow-ups and monitoring. 5. Seek immediate medical care with worsening or with any concerns. Henrry Santiago MD Patient data External records reviewed:: [facility] previous records (Per chart review, patient was admitted here on 12/21/24 for upper GI bleeding.) and EMS form Clinical information provided by:: patient and EMS Social determinants that could affect healthcare access:: none Patient has the following chronic illnesses:: DMII, HTN, HLD, CAD s/p stents, and GERD How is presenting disease/condition affected by chronic disease/condition?: uneffected by Evaluation data The following diagnostics were reviewed and interpreted by me:: lab results, radiology exam(s) and EKG tracing(s) (My interpretation of the EKG is: Sinus rhythm (89 bpm) with nonspecific ST-T changes. Henrry Santiago MD) Lab and/or radiology exams considered but not ordered:: none Interpretation Summary: I reviewed all diagnostic test results. My interpretation of the EKG is sinus rhythm with nonspecific ST-T changes. My interpretation of the chest x-ray is unremarkable. My review of the CT head report is unremarkable. My review of the CT cervical spine report is unremarkable. My review of the CT chest abdomen report is unremarkable. Blood/urine tests unremarkable. COVID/Influenza negative. Medications / Prescriptions Medications or Prescriptions considered but not ordered:: none Medication administrations:: Medication Administration History Discontinued Medications Clonidine (Clonidine Hcl 0.1 Mg Tablet) 0.1 mg PO X1 ONE Stop: 12/28/24 23:56 Last Admin: 12/29/24 00:05 Dose: 0.1 mg Documented By: RAUL Sodium Chloride (Ns) 1,000 mls @ 999 mls/hr IV .Q1H1M ONE Stop: 12/29/24 00:55 Last Infusion: 12/29/24 02:46 Dose: Infused Documented By: Admin: 12/29/24 00:05 Dose: 999 mls/hr Documented By: RAUL Morphine Sulfate (Morphine Sulf Inj 4 Mg/Ml Vial) 2 mg IV X1 ONE Stop: 12/28/24 23:56 Last Admin: 12/29/24 00:04 Dose: 2 mg Documented By: RAUL Ondansetron HCl (Ondansetron Inj 2 Mg/Ml Inj 2 Ml) 4 mg IVP X1 ONE; Protocol Stop: 12/28/24 23:56 Last Admin: 12/29/24 00:04 Dose: 4 mg Documented By: RAUL Treatment here included: IVF Zofran 4 mg IV Morphine 2 mg IV Oral clonidine 0.1 mg Consultations Consultation(s) initiated? (list below): No Diagnosis Shortness of Breath Differential Diagnosis: congestive heart failure, community acquired pneumonia and other (WA, PE, WA, fracture, sprain, strain) Most likely diagnosis given after review of the tests above:: Neck pain Admission Indicated Admission indicated?: not indicated Explain why admission is indicated or not indicated:: With significant improvement and no condition needing emergent intervention, there was no indication for admission. Admission Request Was there a request for admission?: No Disposition Plan Disposition Plan: Discharge Discharge Attestation Discharge Attestation: The patient and all family members were given an opportunity to ask questions and understood the discharge instructions. Discharge instructions specifically effects, indications for sooner follow up or return to the emergency department, and the expected course of current diagnosis. Patient condition: Stable Discharge Plan Plan Patient Disposition: HOME (Self Care) Prescriptions/Referrals Prescriptions/Med Rec: New acetaminophen-codeine 300-30 mg tablet 2 tab PO Q8H MDD 6 PRN (Reason: pain) Qty: 20 0RF lidocaine [Lidoderm] 5 % adhesive patch,medicated 1 patch topical QDAY PRN (Reason: pain) Qty: 30 0RF Rx Instructions: leave on most painful area for up to 12 hrs No Action allopurinol 300 mg tablet 300 mg PO QDAY Patient Comments: TOME ALY TABLETA TODOS LOS D Cari-Marycruz 0.8 mg tablet 1 tab PO QDAY Patient Comments: TOME ALY TABLETA TODOS LOS D aspirin 81 mg Tablet,Delayed Release (Dr/Ec) 81 mg PO QDAY docusate sodium [Colace] 100 mg capsule 100 mg PO BID Qty: 40 0RF hydrocodone-acetaminophen 5-325 mg tablet 1 tab PO Q6H MDD 4 PRN (Reason: pain (scale score 7-10)) Qty: 20 0RF hydralazine 25 mg Tablet 25 mg PO TID 30 Days Qty: 90 0RF atorvastatin 80 mg tablet 80 mg PO HS Qty: 30 0RF Patient Comments: TOME 1 TABLETA POR V A ORAL TODOS LOS D FOR 90 DAYS Januvia 100 mg tablet 50 mg PO QDAY Qty: 15 0RF Patient Comments: TOME ALY TABLETA TODOS LOS D sucralfate 1 gram tablet 1 g PO BID 30 Days Qty: 60 0RF pantoprazole 40 mg tablet,delayed release (DR/EC) 40 mg PO QDAY Qty: 30 0RF cephalexin 500 mg capsule 500 mg PO QDAY Qty: 4 0RF meclizine 12.5 mg Tablet 12.5 mg PO BID PRN (Reason: Dizziness) ferrous sulfate 325 mg (65 mg iron) Tablet 325 mg PO DAILY metoprolol tartrate 25 mg Tablet 25 mg PO QDAY insulin glargine [Lantus Solostar U-100 Insulin] 100 unit/mL (3 mL) insulin pen 10 unit SUBCUT QAM Patient Comments: INYECTE 10 UNIDADES DEBAJO DE LA PIEL DIARIO EN LA MANANA CUANDO SEA NECESARIO Referrals: Puneet Anguiano MD [Primary Care Provider, [facility]] - In 1 week Problem List Clinical Impression: Neck pain Patient/Caregiver Discharge Instructions Discharge Activity: activity as tolerated Education Materials: ED Neck Pain No Trauma, ED Neck Sprain or Strain Additional Instructions: Discharge instructions from Dr. Santiago: 1. After extensive evaluation, there is no life-threatening condition. Such as stroke or brain tumor heart attack. 2. And there is no serious infection. Such as pneumonia or urine infection. 3. Lidocaine patches and Tylenol with codeine as needed for pain. 4. See a private doctor on 12/31/2024 for recheck and further care. Ask to review all test results and official radiology reports, to make sure you receive all necessary follow-ups and monitoring. 5. Seek immediate medical care with worsening or with any concerns. Instrucciones de michelle del Dr. Santiago: 1. Tras aly evaluaci?n exhaustiva, no se detecta ninguna afecci?n que ponga en peligro la tomasa, srinath un derrame cerebral, un tumor cerebral o un infarto. 2. Tampoco se detecta ninguna infecci?n grave, srinath neumon?a o infecci?n urinaria. 3. Parches de lidoca?na y paracetamol con code?na seg?n sea necesario para el dolor. 4. Acuda a corona m?dico particular el 5 de 2024 para aly revisi?n y seguimiento. Solicite revisar todos los resultados de las pruebas y los informes radiol?gicos oficiales para asegurarse de recibir el seguimiento y la monitorizaci?n necesarios. 5. Busque atenci?n m?dica inmediata si corona estado empeora o si tiene alguna inquietud. Print Language: Mexican Stand Alone Forms: Rajni Award Info., Patient Portal Info Letter
--- NOTE | 2024-12-28 23:56 | XR_ITS ---
Examination: CT brain head without contrast. 2-D sagittal coronal reconstructions Date and time of exam: December 29, 2024, 0018 hours INDICATIONS: Onset high blood pressure and headache today CTDI: vol (mGy): 47 DLP: (mGycm): 864 Technique: Multiple CT axial sections of the brain have been obtained, 5 mm slice thickness. Contrast has not been administered. 2-D sagittal, coronal reconstructions have been obtained Low dose protocols were performed. One or more of the following dose reduction techniques were used; automated exposure control, adjustment of the mA and/or KV according to patient size, use of iterative reconstruction technique. Findings: No significant ventricular enlargement. Intra-axial or extra-axial hemorrhage density is not seen. No mass effect or midline shift Basal cisterns are not remarkable. Fourth ventricle is midline. Cranial vault intact. Impression: Negative for acute hemorrhage, mass effect or midline shift
--- NOTE | 2024-12-28 23:56 | XR_ITS ---
Examination: CT cervical spine without contrast 2-D sagittal reconstructions 2-D coronal reconstructions 3-D reconstructions. Exam date and time: December 29, 2024, 0019 hours INDICATIONS: Onset severe neck pain today, no injury CTDI:vol (mGy) 13.26 DLP: (mGycm) 275 Technique: Multiple 2 mm axial sections of the cervical spine have been obtained. The coronal and sagittal reconstructions have been obtained. 3-D reconstructions have been obtained. Low dose protocols were performed. One or more of the following dose reduction techniques were used; automated exposure control, adjustment of the mA and/or KV according to patient size, use of iterative reconstruction technique. Findings: Axial sections demonstrate intact base of the skull. C1 exhibit satisfactory relationship to the odontoid. No acute cervical vertebral body fracture seen. Alignment posterior spinous processes satisfactory. Significant degenerative disc disease C5-C6 where Schmorl's node at the inferior endplate C5 Impression: No acute cervical fracture. Significant degenerative disc disease C5-C6 As clinically warranted, consider MRI cervical spine without contrast follow-up
--- NOTE | 2024-12-28 23:56 | XR_ITS ---
EXAMINATION: AP chest single view TECHNIQUE: AP portable upright chest single view Date and time: December 29, 2024, 0150 hours, comparison December 21, 2024 INDICATIONS: Shortness of breath today. FINDINGS: Moderate enlargement cardiac contour. Moderate vascular congestion. No pneumonia or oziel pulmonary edema. Moderate osteopenia. IMPRESSION: Moderate enlargement cardiac contour Moderate vascular congestion
[2024-12-29] MEDS: MORPHINE SULF INJ 4 MG/ML VIAL 2 MG IV (00:04)
[2024-12-29] MEDS: ONDANSETRON INJ 2 MG/ML INJ 2 ML 4 MG IVP (00:04)
[2024-12-29 00:05] VITALS: BP 169/83; PULSE 91
[2024-12-29] MEDS: SODIUM CHLORIDE 0.9% 1000 ML 1,000 ML 999 ML IV (00:05)
[2024-12-29 00:11] LABS: Lactate (Lactic Acid) 1.4 mMol/L (0.4-2.0)
[2024-12-29 00:14] LABS: Basophils # (Auto) 0.0 Thou/mm3 (0.0-0.2); Basophils % (Auto) 0 % (0-2.5); Eosinophils # (Auto) 0.1 Thou/mm3 (0.0-0.5); Eosinophils % (Auto) 2 % (0-10); Hematocrit 29.9 % (36.0-46.0); Hemoglobin 9.9 g/dL (12.0-16.0); Immature Granulocytes Auto 0.06 Thou/mm3 (0.00-0.00); Lymphocytes # (Auto) 1.5 Thou/mm3 (1.0-4.8); Lymphocytes % (Auto) 18 % (10-50); Mean Corpuscular HGB Conc 33.1 g/dl (31.0-37.0); Mean Corpuscular Hemoglobin 29.7 pg (25.0-35.0); Mean Corpuscular Volume 90 fL (80-100); Monocytes # (Auto) 0.8 Thou/mm3 (0.0-0.8); Monocytes % (Auto) 10 % (0-12); Neutrophils # (Auto) 5.7 Thou/mm3 (1.8-7.7); Neutrophils % (Auto) 69 % (37-80); Nucleated Red Blood Cell # 0.00 Thou/mm3 (0.00-0.00); Nucleated Red Blood Cell % 0 /100 WBC (0); Platelet Count 177 Thou/mm3 (140-440); RDW Standard Deviation 51.1 fL (36.4-46.3); Red Blood Count 3.33 Miln/mm3 (4.00-5.20); White Blood Count 8.2 Thou/mm3 (3.6-11.0)
--- NOTE | 2024-12-29 00:22 | XR_ITS ---
Examination: CT chest, without intravenous contrast. CT abdomen, without intravenous contrast. CT pelvis, without intravenous contrast. 2-D sagittal and coronal reconstructions. 3-D reconstructions. Date and time of exam: December 29, 2024, 0028 hours INDICATIONS: Patient fell today with injury of the chest and abdomen, chest pain abdomen pain back pain CTDI vol (mgy) 10.61 DLP (MGycm) 823 Technique: Multiple CT images, 3.0 mm slice thickness, obtained chest, abdomen, pelvis, with the high-resolution 64 slice scanner.. Sagittal and coronal 2-D reconstructions are obtained. 3-D reconstructions Low dose protocols were performed. One or more of the following dose reduction techniques were used; automated exposure control, adjustment of the mA and/or KV according to patient size, use of iterative reconstruction technique. Findings: Thoracic aorta pulmonary arteries appear intact on this noncontrast study Heavy calcification left anterior descending coronary artery. No hemopericardium No pneumothorax pulmonary contusion or hemothorax Possible restrictive airways disease pattern Small pericardial effusion Manubrium thoracic lumbar vertebral bodies and sacral segments intact Ribs appear intact with old fracture right 11th rib No visualized liver or splenic lesion Absent gallbladder Abdominal aorta intact Atrophic kidneys with no perinephric stranding Negative for pneumoperitoneum. Heavy abdominal aortic calcification no aneurysmal dilatation. Normal appendix No free blood in the abdomen or pelvis. Atrophic uterus Urinary bladder intact Bones of the pelvis hips appear intact Impression: Thoracic aorta pulmonary arteries intact. No pneumothorax or pulmonary contusion No abdominal parenchymal laceration. Old appearing fracture right 11th rib. No abdominal parenchymal laceration. Abdominal aorta intact. No free blood in the abdomen or pelvis
[2024-12-29 00:23] LABS: Sed Rate (ESR) 21 mm/hr (0-30)
[2024-12-29 00:41] LABS: B-Type Natriuretic Peptide 121 pg/mL (0-100)
[2024-12-29 00:42] LABS: INR 0.9 (0.9-1.3); Partial Thromboplastin Time 29.6 Seconds (22.0-36.0); Prothrombin Time 10.1 Seconds (9.0-12.2)
[2024-12-29 00:45] LABS: Alanine Aminotransferase 24 U/L (10-49); Albumin, Serum 3.9 gm/dL (3.4-4.8); Albumin/Globulin Ratio 2.2 (1.2-2.2); Alkaline Phosphatase 108 U/L (46-116); Anion Gap 10 (7-16); Aspartate Amino Transferase 45 U/L (0-34); BUN/Creatinine Ratio 15 Ratio (12-20); Bilirubin,Direct 0.2 mg/dL (0.0-0.3); Bilirubin,Total 0.4 mg/dL (0.3-1.2); Blood Urea Nitrogen 51 mg/dL (9-23); C-Reactive Protein < 0.5 mg/dL (0.0-0.9); Calcium 8.9 mg/dL (8.3-10.6); Calcium (Corrected) 9.0 mg/dL (8.5-10.1); Carbon Dioxide 22.6 mMol/L (20.0-31.0); Chloride 107 mMol/L (98-107); Creatine Kinase 221 U/L (34-171); Creatinine (Component) 3.4 mg/dL (0.6-1.3); Estimated Creatinine Clearance 13.9 mL/min (>60); Globulin 1.8 gm/dL (2.3-3.5); Glucose 148 mg/dL (74-106); Lipase 81 U/L (12-53); Magnesium 2.0 mg/dL (1.6-2.6); Osmolality,Calculated 296 (275-295); Potassium 4.6 mMol/L (3.4-5.1); Procalcitonin 0.11 ng/ml (0.0-0.49); Sodium 140 mMol/L (136-145); Thyroid Stimulating Hormone 1.56 uIU/mL (0.55-4.78); Total Protein 5.7 gm/dL (5.7-8.2); Troponin I 0.027 ng/mL (0.0-0.045); eGFR 14 See Note
[2024-12-29 00:47] VITALS: BP 159/94; PULSE 85; RESP 15; TEMP 37.2; O2SAT 99
--- NOTE | 2024-12-29 01:04 | PRELIM_ITS ---
CT scan of the head without intravenous contrast (axial sections with sagittal and coronal reformats) December 29, 2024 at 00:18 hours Clinical history: Headache and high blood pressure No prior study is available for comparison. Findings: There is no evidence of intracranial hemorrhage, mass effect, or midline shift. There are mild periventricular white matter hypodensities, likely representing chronic small vessel ischemia. There is atheromatous calcification of the intracranial arteries. There is mild volume loss. The calvarium is unremarkable. There is mild mucosal thickening in bilateral maxillary sinuses. The mastoid air cells and the remainder of the visualized paranasal sinuses are clear. Impression: No evidence of intracranial hemorrhage, mass effect, or midline shift. Chronic small vessel ischemia and volume loss. Other findings as described above. Report Electronically Signed By: William Marquez 12/29/2024 1:03:24 AM [EST]
[2024-12-29 01:21] LABS: Collection Type, Urine Clean Catch
--- NOTE | 2024-12-29 01:22 | PRELIM_ITS ---
CT scan of the cervical spine without intravenous contrast (axial sections with sagittal and coronal reformats) December 29, 2024 00:19 hours Clinical History: Severe neck pain with no injury No prior study is available for comparison. Findings: The bones are osteopenic. No evidence of acute fracture or subluxation. There is reversal of cervical lordosis, which may be due to muscle spasm. Anterior marginal osteophytes are noted at multiple levels. There is mild anterolisthesis of C4 over C5 and mild retrolisthesis of C5 over C6. A Schmorl's node is noted at the inferior endplate of the C5 vertebra. There are multilevel degenerative disc, uncovertebral, and facet joint disease, predominantly at C5-C6, without significant spinal canal or neural foraminal narrowing. The prevertebral soft tissues appear unremarkable. Impression: No evidence of acute fracture or subluxation. Mild degenerative changes. Report Electronically Signed By: William Marquez 12/29/2024 1:22:10 AM [EST]
[2024-12-29 01:28] LABS: Bilirubin,Urine Negative (Negative); Blood,Urine 1+ (Negative); Clarity,Urine Clear (Clear/Hazy); Color,Urine Colorless (Lt Yel-Yel); Culture Indicated,Urine Not Indicated; Glucose, Urine Negative (Negative); Ketones,Urine Negative (Negative); Leukocyte Esterase,Urine Negative (Negative); Nitrite,Urine Negative (Negative); PH,Urine 7.0 (5.0-7.0); Protein,Urine 1+ (Neg - Trace); RBC,Urine 1 /hpf (0-3); Specific Gravity,Urine 1.008 (1.001-1.035); Squamous Epithelial Cell,Urine < 1 /hpf (0-5); Urobilinogen,Urine Negative mg/dL (0.0-1.0); WBC,Urine < 1 /hpf (0-5)
[2024-12-29 01:43] LABS: Influenza A Ag Negative; Influenza B Ag Negative
--- NOTE | 2024-12-29 02:19 | PRELIM_ITS ---
CT scan of the chest, abdomen, and pelvis without intravenous contrast (axial sections with sagittal and coronal reformats) December 29, 2024, 00:28 hours Clinical History: Fall No prior study is available for comparison. Findings: There is peribronchial thickening with heterogeneous attenuation of the lungs. Bibasilar dependent atelectasis is seen. Scarring versus streaky atelectasis is seen in the bilateral lower lobes and right middle lobe. Prominent mediastinal and hilar lymph nodes are noted, nonspecific. The main pulmonary arteries are dilated, with the pulmonary trunk measuring 3.5 cm, which may represent pulmonary arterial hypertension. The thoracic aorta demonstrates atheromatous calcifications without evidence of an aneurysm. Coronary artery calcification is present. There is a small pericardial effusion. The gallbladder is surgically absent. Calcific densities are seen in the liver and spleen, which may represent old calcified granulomas. A subcentimeter hypodensity is seen in the right lobe of the liver, too small to characterize. The common bile duct is mildly dilated and measures 9 mm. A left extrarenal pelvis is noted. Punctate nonobstructing right renal calculi are noted. No ureteric calculus or hydronephrosis is seen. There is no evidence of bowel obstruction. A small hiatal hernia is present. The appendix is within normal limits. There are colonic diverticula without evidence of colonic diverticulitis. Moderate amount of fecal material is present in the colon. The urinary bladder is not well distended. Vascular calcifications are seen in the uterus. There is no free fluid or free air. The abdominal aorta and its branches demonstrate atheromatous calcification without evidence of an aneurysm. Mild degenerative changes are identified in the spine. An L1 vertebral body hemangioma is noted. Impression: No evidence of acute visceral or bony injury in the chest, abdomen, and pelvis. Findings are suggestive of small airway disease. Recommend clinical correlation. Small pericardial effusion. Other findings are as described above. Report Electronically Signed By: William Marquez 12/29/2024 2:18:59 AM [EST]
[2024-12-29 02:51] VITALS: PULSE 76; RESP 13; TEMP 36.8; O2SAT 100
== END 2024-12-29 02:52 | disposition home or self-care (01) ==
PROVIDERS: Emergency Provider Emergency Medicine; PCP Family Medicine
DX: M54.2 Cervicalgia (principal); E11.9 Type 2 diabetes mellitus without complications; E78.5 Hyperlipidemia, unspecified; I10 Essential (primary) hypertension
CPT/HCPCS: 36415; 70450; 71045; 71250; 72125; 74176; 80053; 81001; 82248; 82550; 83605; 83690; 83735; 83880; 84145; 84443; 84484; 85025; 85610; 85652; 85730; 86140; 87040; 87502; 87635; 93005; 96361; 96374; 99284; J2270; J2405; J7030; A9270